=== PATIENT | female | born 1950 | race American Indian/Alaskan Native ===

== ENCOUNTER 2018-08-31 19:45 | Emergency (ER) | payer BC, MEDICARE ==
--- NOTE | 2018-08-31 20:08 | EDM.PDOC ---
ED HPI GENERAL MEDICAL PROBLEM - General Chief Complaint: Cardiovascular Problem Stated Complaint: PACEMAKER PROBLEM [id number] Time Seen by Provider: 08/31/18 20:07 Source of Information: Reports: Patient History Limitations: Reports: No Limitations - History of Present Illness INITIAL COMMENTS - FREE TEXT/NARRATIVE: c/o palpitation all day, denies CP/SOB. has pacemaker. states been having cough and congestion past week, went to clinic 3 days ago and only got cough med but no lab no x-rays, no ABX - Related Data Allergies Allergy/AdvReac Type Severity Reaction Status Date / Time amoxicillin Allergy unknown Verified 08/31/18 20:21 Home Meds: Home Meds Calc/D3/Mag/Zn/[place] Dried Salt/Matty/[place] [Calcium 600 MG Plus Vit D] 1 each PO BID [History] Fish Oil/[place]-3 Fatty Acids [Fish Oil] 500 mg PO DAILY 06/08/13 [History] Gabapentin 600 mg PO BID 06/08/13 [History] Hydrochlorothiazide/Valsartan [Diovan HCT 160-12.5 MG] 1 tab PO DAILY 06/08/13 [ History] Hydroxychloroquine [Plaquenil] 200 mg PO BID 06/08/13 [History] Metaxalone 06/08/13 [History] Multivitamin [Multi Vitamin Daily] 1 each PO DAILY 06/08/13 [History] Zolpidem [Ambien] 5 mg PO BID 06/08/13 [History] cycloSPORINE [Restasis] 06/08/13 [History] Past Medical History Cardiovascular History: Reports: High Cholesterol, Hypertension Musculoskeletal History: Reports: RA Endocrine/Metabolic History: Reports: Obesity/BMI 30+ - Past Surgical History GI Surgical History: Reports: Cholecystectomy Female Surgical History: Reports: Hysterectomy Social & Family History - Family History Family Medical History: Noncontributory - Caffeine Use Caffeine Use: Reports: Coffee - Living Situation & Occupation Living situation: Reports: , with Spouse Occupation: Retired ED ROS GENERAL - Review of Systems Review Of Systems: ROS reveals no pertinent complaints other than HPI. ED EXAM, GENERAL - Physical Exam Exam: See Below Exam Limited By: No Limitations General Appearance: Alert, WD/WN, Anxious Ears: Hearing Grossly Normal Throat/Mouth: Normal Voice, No Airway Compromise Head: Atraumatic Neck: Non-Tender, Full Range of Motion Respiratory/Chest: No Respiratory Distress Cardiovascular: Regular Rate, Rhythm GI/Abdominal: Soft, Non-Tender Neurological: Alert, Oriented, Normal Cognition, Normal Gait, No Motor/Sensory Deficits Psychiatric: Anxious Skin Exam: Warm, Dry, Normal Color Lymphatic: No Adenopathy Course - Vital Signs Last Recorded V/S: Last Vital Signs Temp 36.8 C 08/31/18 19:56 Pulse 83 08/31/18 19:56 Resp 25 H 08/31/18 19:56 BP 141/64 H 08/31/18 19:56 Pulse Ox 100 08/31/18 19:56 - Orders/Labs/Meds Orders: Active Orders 24 hr Category Date Time Status EKG 12 Lead [EKG Documentation Completion] [RC] STAT Care 08/31/18 20:06 Active Chest 1V Frontal [CR] Urgent Exams 08/31/18 20:11 Ordered Labs: Laboratory Tests 08/31/18 08/31/18 Range/Units 20:14 20:14 WBC 3.7 L (5.0-10.0) 10^3/uL RBC 4.43 (4.2-5.4) 10^6/uL Hgb 12.6 (12.0-16.0) g/dL Hct 38.4 (37.0-47.0) % MCV 86.7 (80-100) fL MCH 28.4 (27.0-34.0) pg MCHC 32.8 L (33.0-35.0) g/dL Plt Count 112 L (150-450) 10^3/uL Neut % (Auto) 74.2 (42.2-75.2) % Lymph % (Auto) 15.2 L (20.5-50.1) % [place] % (Auto) 8.9 H (2-8) % Eos % (Auto) 1.4 (1.0-3.0) % Baso % (Auto) 0.3 (0.0-1.0) % Sodium 135 (135-145) mmol/L Potassium 4.2 (3.6-5.0) mmol/L Chloride 102 (101-111) mmol/L Carbon Dioxide 24.0 (21.0-31.0) mmol/L Anion Gap 13.2 BUN 16 (7-18) mg/dL Creatinine 0.9 (0.6-1.3) mg/dL Est Cr Clr Drug Dosing 48.80 mL/min Estimated GFR (MDRD) > 60 BUN/Creatinine Ratio 17.77 Glucose 97 (74-105) mg/dL Calcium 9.1 (8.4-10.2) mg/dl Total Bilirubin 0.7 (0.2-1.0) mg/dL AST 39 (10-42) IU/L ALT 28 (10-60) IU/L Alkaline Phosphatase 67 (42-121) IU/L Troponin I 0.03 H* (0.00-0.02) ng/ml B-Natriuretic Peptide 104 H (0-100) pg/ml Total Protein 7.1 (6.7-8.2) g/dl Albumin 3.3 (3.2-5.5) g/dl Globulin 3.8 Albumin/Globulin Ratio 0.87 - Re-Assessments/Exams Free Text/Narrative Re-Assessment/Exam: 08/31/18 21:[address] Chua who kindly accepted pt. Departure - Departure Time of Disposition: 21:01 Disposition: DC/Tfer to Acute Hospital 02 Reason for Transfer *Q: Other Condition: Fair Clinical Impression: Palpitations, Non-STEMI (non-ST elevated myocardial infarction) Forms: Interfacility Transfer EMTALA - My Orders Last 24 Hours: My Active Orders 08/31/18 20:06 EKG 12 Lead [EKG Documentation Completion] [RC] STAT 08/31/18 20:11 Chest 1V Frontal [CR] Urgent - Assessment/Plan Last 24 Hours: My Active Orders 08/31/18 20:06 EKG 12 Lead [EKG Documentation Completion] [RC] STAT 08/31/18 20:11 Chest 1V Frontal [CR] Urgent
[2018-08-31 20:43] LABS: ANION GAP 13.2; CHLORIDE,CL 102 mmol/L (101-111); SODIUM,NA 135 mmol/L (135-145)
[2018-08-31] MEDS ORDERED: LORazepam 2 MG/ML Syringe IVPUSH ONE (21:42)
== END 2018-08-31 21:53 ==
LOC: DL.ED 19:45
DX: I21.4 Non-ST elevation (NSTEMI) myocardial infarction (principal); R00.2 Palpitations; E78.00 Pure hypercholesterolemia, unspecified; I10 Essential (primary) hypertension; Z95.0 Presence of cardiac pacemaker; Z88.1 Allergy status to other antibiotic agents; Z79.899 Other long term (current) drug therapy
CPT/HCPCS: 36415; 71045; 80053; 83880; 84484; 85025; 93005; 96374; 99285; J2060

== ENCOUNTER 2018-10-13 11:33 | Emergency (ER) | payer BC, MEDICARE ==
[2018-10-13] MEDS ORDERED: Ondansetron 4 MG/2 ML SDV IV ONE (12:03)
[2018-10-13] MEDS ORDERED: Meclizine 12.5 MG Tab PO ONE (12:07)
--- NOTE | 2018-10-13 12:11 | EDM.PDOC ---
ED HPI GENERAL MEDICAL PROBLEM - General Chief Complaint: Cardiovascular Problem Stated Complaint: HEART PROBLEMS Time Seen by Provider: 10/13/18 12:07 Source of Information: Reports: Patient History Limitations: Reports: No Limitations - History of Present Illness INITIAL COMMENTS - FREE TEXT/NARRATIVE: c/o weakness lightheaded dizzy nausea and vomiting today.denies CP/SOB. - Related Data Allergies Allergy/AdvReac Type Severity Reaction Status Date / Time amoxicillin Allergy unknown Verified 08/31/18 20:21 Home Meds: Home Meds Calc/D3/Mag/Zn/[employer]/Matty/[place] [Calcium 600 MG Plus Vit D] 1 each PO BID [History] Fish Oil/[place]-3 Fatty Acids [Fish Oil] 500 mg PO DAILY 06/08/13 [History] Gabapentin 600 mg PO BID 06/08/13 [History] Hydrochlorothiazide/Valsartan [Diovan HCT 160-12.5 MG] 1 tab PO DAILY 06/08/13 [ History] Hydroxychloroquine [Plaquenil] 200 mg PO BID 06/08/13 [History] Metaxalone 1 dose PO DAILY 06/08/13 [History] Multivitamin [Multi Vitamin Daily] 1 each PO DAILY 06/08/13 [History] Zolpidem [Ambien] 5 mg PO BID 06/08/13 [History] cycloSPORINE [Restasis] 1 dose TOP DAILY 06/08/13 [History] Past Medical History Cardiovascular History: Reports: High Cholesterol, Hypertension Musculoskeletal History: Reports: RA Endocrine/Metabolic History: Reports: Obesity/BMI 30+ - Past Surgical History GI Surgical History: Reports: Cholecystectomy Female Surgical History: Reports: Hysterectomy Social & Family History - Family History Family Medical History: Noncontributory - Caffeine Use Caffeine Use: Reports: Coffee - Living Situation & Occupation Living situation: Reports: , with Spouse Occupation: Retired ED ROS GENERAL - Review of Systems Review Of Systems: ROS reveals no pertinent complaints other than HPI. ED EXAM, GENERAL - Physical Exam Exam: See Below Exam Limited By: No Limitations General Appearance: Alert, WD/WN, Mild Distress, Other (discomfort) Eye Exam: Bilateral Eye: PERRL (pupils ER @ 4mm) Ears: Hearing Grossly Normal Throat/Mouth: Normal Voice, No Airway Compromise Head: Atraumatic Neck: Non-Tender, Full Range of Motion Respiratory/Chest: No Respiratory Distress Cardiovascular: Regular Rate, Rhythm GI/Abdominal: Soft, Non-Tender Neurological: Alert, Oriented, Normal Cognition, No Motor/Sensory Deficits Psychiatric: Flat Affect Skin Exam: Warm, Dry, Normal Color Lymphatic: No Adenopathy Course - Vital Signs Last Recorded V/S: Last Vital Signs Temp 35.8 C 10/13/18 11:47 Pulse 72 10/13/18 11:47 Resp 18 10/13/18 11:47 BP 156/73 H 10/13/18 11:47 Pulse Ox 97 10/13/18 11:47 Orthostatic Blood Pressure [ 159/81 Standing] Orthostatic Blood Pressure [ 161/82 Sitting] Orthostatic Blood Pressure [ 147/71 Supine] - Orders/Labs/Meds Orders: Active Orders 24 hr Category Date Time Status EKG 12 Lead [EKG Documentation Completion] [RC] STAT Care 10/13/18 11:39 Active Labs: Laboratory Tests 10/13/18 10/13/18 Range/Units 11:55 11:55 WBC 3.0 L (5.0-10.0) 10^3/uL RBC 4.58 (4.2-5.4) 10^6/uL Hgb 13.5 (12.0-16.0) g/dL Hct 40.9 (37.0-47.0) % MCV 89.3 (80-100) fL MCH 29.5 (27.0-34.0) pg MCHC 33.0 (33.0-35.0) g/dL Plt Count 108 L (150-450) 10^3/uL Neut % (Auto) 61.8 (42.2-75.2) % Lymph % (Auto) 26.5 (20.5-50.1) % [place] % (Auto) 8.7 H (2-8) % Eos % (Auto) 2.7 (1.0-3.0) % Baso % (Auto) 0.3 (0.0-1.0) % Sodium 137 (135-145) mmol/L Potassium 3.4 L (3.6-5.0) mmol/L Chloride 106 (101-111) mmol/L Carbon Dioxide 22.0 (21.0-31.0) mmol/L Anion Gap 12.4 BUN 14 (7-18) mg/dL Creatinine 0.9 (0.6-1.3) mg/dL Est Cr Clr Drug Dosing TNP Estimated GFR (MDRD) > 60 BUN/Creatinine Ratio 15.55 Glucose 102 (74-105) mg/dL Calcium 9.3 (8.4-10.2) mg/dl Total Bilirubin 0.9 (0.2-1.0) mg/dL AST 40 (10-42) IU/L ALT 28 (10-60) IU/L Alkaline Phosphatase 60 (42-121) IU/L Troponin I 0.02 (0.00-0.02) ng/ml Total Protein 7.3 (6.7-8.2) g/dl Albumin 3.6 (3.2-5.5) g/dl Globulin 3.7 Albumin/Globulin Ratio 0.97 Meds: Medications Discontinued Medications Generic Name Dose Route Start Last Admin Trade Name Freq PRN Reason Stop Dose Admin Meclizine HCl 12.5 mg 10/13/18 12:07 10/13/18 12:39 Antivert PO 10/13/18 12:08 12.5 mg ONETIME ONE Administration Ondansetron HCl 4 mg 10/13/18 12:03 10/13/18 12:39 Zofran IV 10/13/18 12:04 4 mg ONETIME ONE Administration - Re-Assessments/Exams Free Text/Narrative Re-Assessment/Exam: 10/13/18 13:09 re-exam; s/p antivert + zofran = better now 10/13/18 13:48 results discussed with pt who is feeling much better now. Departure - Departure Time of Disposition: 14:10 Disposition: Home, Self-Care 01 Condition: Good Clinical Impression: Vertigo Instructions: Vertigo, [id number] Referrals: PCP,None [Primary Care Provider] - Forms: ED Department Discharge Additional Instructions: 1) rest 2) avoid activities 3) take ANTIVERT OR MECLIZINE from [facility] 3 times daily for next 3 days 3) follow up at clinic 4) recheck if there is any change or concern rx given; zofran 4mg ODT bid prn x 6 - My Orders Last 24 Hours: My Active Orders 10/13/18 11:39 EKG 12 Lead [EKG Documentation Completion] [RC] STAT - Assessment/Plan Last 24 Hours: My Active Orders 10/13/18 11:39 EKG 12 Lead [EKG Documentation Completion] [RC] STAT
[2018-10-13 12:24] LABS: ANION GAP 12.4; CHLORIDE,CL 106 mmol/L (101-111); SODIUM,NA 137 mmol/L (135-145)
== END 2018-10-13 14:10 | disposition home or self-care (01) ==
LOC: DL.ED 11:33
DX: R42 Dizziness and giddiness (principal); E78.00 Pure hypercholesterolemia, unspecified; I10 Essential (primary) hypertension; Z88.1 Allergy status to other antibiotic agents; Z79.899 Other long term (current) drug therapy
CPT/HCPCS: 36415; 71045; 80053; 84484; 85025; 93005; 96374; 99285; A9270; J2405

== ENCOUNTER 2019-04-07 10:04 | Emergency (ER) | payer BC, OTHER ==
--- NOTE | 2019-04-07 11:20 | EDM.PDOC ---
Scribed by Yanira Cox 04/07/19 1101 for Miles Clark PA ED HPI GENERAL MEDICAL PROBLEM - General Chief Complaint: Eye Problems Stated Complaint: PINK EYE Time Seen by Provider: 04/07/19 10:40 Source of Information: Reports: Patient, RN, RN Notes Reviewed History Limitations: Reports: No Limitations - History of Present Illness INITIAL COMMENTS - FREE TEXT/NARRATIVE: Patient is a 61-year-old female patient who presents to ED with red eyes bilaterally. This started on Monday p.m. and getting worse. She started having drainage this morning. Onset Date: 04/05/19 Duration: Getting Worse Location: Reports: Other (eyes) Quality: Reports: Ache Severity: Moderate Improves with: Reports: None Worsens with: Reports: None Associated Symptoms: Reports: No Other Symptoms - Related Data Allergies Allergy/AdvReac Type Severity Reaction Status Date / Time amoxicillin Allergy unknown Verified 04/07/19 10:12 Home Meds: Home Meds Calc/D3/Mag/Zn/[place]/Matty/[place] [Calcium 600 MG Plus Vit D] 1 each PO BID [History] Fish Oil/[place]-3 Fatty Acids [Fish Oil] 500 mg PO DAILY 06/08/13 [History] Gabapentin 600 mg PO BID 06/08/13 [History] Hydrochlorothiazide/Valsartan [Diovan HCT 160-12.5 MG] 1 tab PO DAILY 06/08/13 [ History] Hydroxychloroquine [Plaquenil] 200 mg PO BID 06/08/13 [History] Metaxalone 1 dose PO DAILY 06/08/13 [History] Multivitamin [Multi Vitamin Daily] 1 each PO DAILY 06/08/13 [History] Zolpidem [Ambien] 5 mg PO BID 06/08/13 [History] cycloSPORINE [Restasis] 1 dose TOP DAILY 06/08/13 [History] Past Medical History Cardiovascular History: Reports: High Cholesterol, Hypertension Musculoskeletal History: Reports: RA Endocrine/Metabolic History: Reports: Obesity/BMI 30+ - Infectious Disease History Infectious Disease History: Reports: Chicken Pox, Measles - Past Surgical History GI Surgical History: Reports: Cholecystectomy Female Surgical History: Reports: Hysterectomy Social & Family History - Family History Family Medical History: Noncontributory - Tobacco Use Smoking Status *Q: Never Smoker Second Hand Smoke Exposure: No - Caffeine Use Caffeine Use: Reports: Coffee - Recreational Drug Use Recreational Drug Use: No - Living Situation & Occupation Living situation: Reports: , with Spouse Occupation: Retired ED ROS GENERAL - Review of Systems Review Of Systems: Comprehensive ROS is negative, except as noted in HPI. ED EXAM GENERAL W FULL EYE - Physical Exam Exam: See Below Exam Limited By: No Limitations General Appearance: Alert, WD/WN, No Apparent Distress Eye Exam: Bilateral Eye: Conjunctival Injection (and erythema with purulent drainage.) Ears: Normal External Exam, Normal Canal, Hearing Grossly Normal, Normal TMs Nose: Normal Inspection, Normal Mucosa, No Blood Throat/Mouth: Normal Inspection, Normal Lips, Normal Teeth, Normal Gums, Normal Oropharynx, Normal Voice, No Airway Compromise Head: Atraumatic, Normocephalic Neck: Normal Inspection, Supple, Non-Tender, Full Range of Motion Respiratory/Chest: No Respiratory Distress, Lungs Clear, Normal Breath Sounds, No Accessory Muscle Use, Chest Non-Tender Cardiovascular: Normal Peripheral Pulses, Regular Rate, Rhythm, No Edema, No Gallop, No JVD, No Murmur, No Rub GI/Abdominal: Normal Bowel Sounds, Soft, Non-Tender, No Organomegaly, No Distention, No Abnormal Bruit, No Mass (Female) Exam: Deferred Rectal (Female) Exam: Deferred Back Exam: Normal Inspection, Full Range of Motion, NT Extremities: Normal Inspection, Normal Range of Motion, Non-Tender, Normal Capillary Refill, No Pedal Edema Neurological: Alert, Oriented, CN II-XII Intact, Normal Cognition, Normal Gait, Normal Reflexes, No Motor/Sensory Deficits Psychiatric: Normal Affect, Normal Mood Skin Exam: Warm, Dry, Intact, Normal Color, No Rash Lymphatic: No Adenopathy Course - Vital Signs Last Recorded V/S: Last Vital Signs Temp 36.6 C 04/07/19 10:08 Pulse 73 04/07/19 10:08 Resp 18 04/07/19 10:08 BP 154/73 H 04/07/19 10:08 Pulse Ox 97 04/07/19 10:08 Departure - Departure Time of Disposition: 10:57 Disposition: Home, Self-Care 01 Condition: Fair Clinical Impression: Conjunctivitis Qualifiers: Conjunctivitis type: acute Acute conjunctivitis type: bacterial Laterality: bilateral Qualified Code(s): H10.33 - Unspecified acute conjunctivitis, bilateral - Discharge Information *PRESCRIPTION DRUG MONITORING PROGRAM REVIEWED*: Not Applicable *COPY OF PRESCRIPTION DRUG MONITORING REPORT IN PATIENT MARIXA: Not Applicable Instructions: Bacterial Conjunctivitis, Phya-ra-Qiyn Forms: ED Department Discharge Care Plan Goals: The patient and mother were advised of the examination results during the visit. The patient was discharged with a script for Ofloxacin ophthalmic 3% to apply 1 drop into each eye 4 times per day for 10 days. If the patient has any additional symptoms or further concerns, the patient should follow-up with her primary care facility or return to the emergency department. I have read and agree with the documentation that has been completed regarding this visit. By signing this record, I attest that the documentation was completed in my physical presence and is an accurate record of the encounter.
== END 2019-04-07 11:26 | disposition home or self-care (01) ==
LOC: DL.ED 10:04
DX: H10.89 Other conjunctivitis (principal); I10 Essential (primary) hypertension; M06.9 Rheumatoid arthritis, unspecified; E66.9 Obesity, unspecified; Z68.30 Body mass index [BMI] 30.0-30.9, adult; Z88.1 Allergy status to other antibiotic agents; Z79.899 Other long term (current) drug therapy
CPT/HCPCS: 99283

== ENCOUNTER 2019-06-13 19:43 | Emergency (ER) | payer BC, OTHER ==
[2019-06-13] MEDS ORDERED: Codeine/guaiFENesin 100-10 MG/5 ML Syrup 5 ML Cup PO ONE (19:44)
[2019-06-13 21:02] LABS: ANION GAP 13.2
--- NOTE | 2019-06-13 21:32 | EDM.PDOC ---
ED HPI GENERAL MEDICAL PROBLEM - General Chief Complaint: Chest Pain Stated Complaint: RAPID HEART BEAT Time Seen by Provider: 06/13/19 20:02 Source of Information: Reports: Patient, Family, RN, RN Notes Reviewed History Limitations: Reports: No Limitations - History of Present Illness INITIAL COMMENTS - FREE TEXT/NARRATIVE: Patient to ER with complaint of rapid heartbeat intermittently throughout the day. Began getting dizzy this evening with the palpitations. States she took a Zofran. Patient complains of increased shortness of breath with ambulation and rest intermittently. Patient denies chest pain. Admits to nausea earlier today but denies vomiting or diarrhea. Patient states she has had a bad cold and cough for 3 weeks, has been using Robitussin [id number] for cough. Patient states she has had fever and chills intermittently with a productive cough. Cough production as green. 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 Onset: Today Duration: Intermittent Mid-Sternal Chest Pain Score (Numeric/FACES): 6 - Related Data Allergies Allergy/AdvReac Type Severity Reaction Status Date / Time amoxicillin Allergy unknown Verified 04/07/19 10:12 Home Meds: Home Meds Calc/D3/Mag/Zn/[place]/Matty/[place] [Calcium 600 MG Plus Vit D] 1 each PO BID [History] Fish Oil/[place]-3 Fatty Acids [Fish Oil] 500 mg PO DAILY 06/08/13 [History] Gabapentin 600 mg PO BID 06/08/13 [History] Hydrochlorothiazide/Valsartan [Diovan HCT 160-12.5 MG] 1 tab PO DAILY 06/08/13 [ History] Hydroxychloroquine [Plaquenil] 200 mg PO BID 06/08/13 [History] Metaxalone 1 dose PO DAILY 06/08/13 [History] Multivitamin [Multi Vitamin Daily] 1 each PO DAILY 06/08/13 [History] Zolpidem [Ambien] 5 mg PO BID 06/08/13 [History] cycloSPORINE [Restasis] 1 dose TOP DAILY 06/08/13 [History] Past Medical History Cardiovascular History: Reports: High Cholesterol, Hypertension, Pacemaker Musculoskeletal History: Reports: RA Endocrine/Metabolic History: Reports: Obesity/BMI 30+ - Infectious Disease History Infectious Disease History: Reports: Chicken Pox, Measles - Past Surgical History GI Surgical History: Reports: Cholecystectomy Female Surgical History: Reports: Hysterectomy Social & Family History - Family History Family Medical History: Noncontributory - Tobacco Use Smoking Status *Q: Never Smoker Second Hand Smoke Exposure: No - Caffeine Use Caffeine Use: Reports: Coffee - Recreational Drug Use Recreational Drug Use: No - Living Situation & Occupation Living situation: Reports: , with Spouse Occupation: Retired ED ROS GENERAL - Review of Systems Review Of Systems: Comprehensive ROS is negative, except as noted in HPI. ED EXAM, GENERAL - Physical Exam Exam: See Below Exam Limited By: No Limitations General Appearance: Alert, WD/WN, No Apparent Distress Eye Exam: Bilateral Eye: EOMI, Normal Inspection Ears: Normal External Exam, Hearing Grossly Normal Nose: Normal Inspection Throat/Mouth: Normal Inspection, Normal Voice, No Airway Compromise Head: Atraumatic, Normocephalic Neck: Normal Inspection, Supple, Non-Tender, Full Range of Motion Respiratory/Chest: No Respiratory Distress, Decreased Breath Sounds, Crackles ( find the bases bilaterally) Cardiovascular: Normal Peripheral Pulses, Regular Rate, Rhythm, No Edema, No Gallop, No JVD, No Murmur, No Rub Peripheral Pulses: 2+: Radial (L), Radial (R) GI/Abdominal: Normal Bowel Sounds, Soft, Non-Tender (Female) Exam: Deferred Rectal (Female) Exam: Deferred Back Exam: Normal Inspection, Full Range of Motion, NT Extremities: Normal Inspection, Normal Range of Motion, Non-Tender, Normal Capillary Refill, No Pedal Edema Neurological: Alert, Oriented, CN II-XII Intact, Normal Cognition, Normal Gait, Normal Reflexes, No Motor/Sensory Deficits Psychiatric: Normal Affect, Normal Mood Skin Exam: Warm, Dry, Intact, Normal Color, No Rash Lymphatic: No Adenopathy Course - Vital Signs Last Recorded V/S: Last Vital Signs Temp 97.4 F 06/13/19 19:47 Pulse 98 06/13/19 19:47 Resp 18 06/13/19 19:47 BP 151/85 H 06/13/19 19:47 Pulse Ox 99 06/13/19 19:47 - Orders/Labs/Meds Orders: Active Orders 24 hr Category Date Time Status EKG Documentation Completion [RC] STAT Care 06/13/19 20:00 Active UA RFX ANDREI AND CULT IF INDIC [URIN] Stat Lab 06/13/19 20:27 Ordered Labs: Laboratory Tests 06/13/19 06/13/19 06/13/19 Range/Units 20:35 20:35 20:35 WBC 3.3 L (5.0-10.0) 10^3/uL RBC 3.74 L (4.2-5.4) 10^6/uL Hgb 11.3 L D (12.0-16.0) g/dL Hct 33.6 L (37.0-47.0) % MCV 89.8 (80-100) fL MCH 30.2 (27.0-34.0) pg MCHC 33.6 (33.0-35.0) g/dL Plt Count 118 L (150-450) 10^3/uL Neut % (Auto) 73.7 (42.2-75.2) % Lymph % (Auto) 15.0 L (20.5-50.1) % [place] % (Auto) 8.9 H (2-8) % Eos % (Auto) 2.4 (1.0-3.0) % Baso % (Auto) 0.0 (0.0-1.0) % PT 9.9 (9.0-12.0) SEC INR 1.0 (0.9-1.2) Sodium 138 (135-145) mmol/L Potassium 4.2 (3.6-5.0) mmol/L Chloride 106 (101-111) mmol/L Carbon Dioxide 23.0 (21.0-31.0) mmol/L Anion Gap 13.2 BUN 20 H (7-18) mg/dL Creatinine 1.0 (0.6-1.3) mg/dL Est Cr Clr Drug Dosing 45.85 mL/min Estimated GFR (MDRD) 55 BUN/Creatinine Ratio 20.00 Glucose 95 (74-105) mg/dL Calcium 8.7 (8.4-10.2) mg/dl Total Bilirubin 0.6 (0.2-1.0) mg/dL AST 38 (10-42) IU/L ALT 37 (10-60) IU/L Alkaline Phosphatase 72 (42-121) IU/L Troponin I 0.03 H* (0.00-0.02) ng/ml Total Protein 6.6 L (6.7-8.2) g/dl Albumin 3.0 L (3.2-5.5) g/dl Globulin 3.6 Albumin/Globulin Ratio 0.83 Meds: Medications Discontinued Medications Generic Name Dose Route Start Last Admin Trade Name Freq PRN Reason Stop Dose Admin Guaifenesin/Codeine Phosphate Confirm 06/13/19 21:39 Robitussin Ac Administered 06/13/19 21:40 Dose 5 ml .ROUTE .[facility] - Radiology Interpretation Free Text/Narrative:: Chest xray: FINDINGS: Tubes, catheters and devices: A pacemaker device is present and its leads are in appropriate position. Lungs: Unremarkable. No consolidation. Pleural space: Unremarkable. No pleural effusion. No pneumothorax. Heart/Mediastinum: Unremarkable. No cardiomegaly. Bones/joints: Unremarkable. IMPRESSION: No acute findings. Thank you for allowing us to participate in the care of your patient. Dictated and Authenticated by: Ehsan Martell MD 06/13/2019 9:18 PM Central Time ([place] & [place]) See rad report Departure - Departure Time of Disposition: 21:30 Disposition: Home, Self-Care 01 Reason for Transfer *Q: Other Condition: Fair Clinical Impression: Palpitations, Viral upper respiratory illness Instructions: Cough, Adult, [id number], Viral Respiratory Infection, Easy-To- Read, Upper Respiratory Infection, Adult, [id number], Palpitations, Easy-to- Read Referrals: Samuel Ignacio [Primary Care Provider] - Forms: ED Department Discharge Additional Instructions: Rest Drink plenty of fluids Follow up with Dr. Adame' office tomorrow Return to the ER with any worsening of symptoms Sepsis Event Note - Evaluation Sepsis Screening Result: No Definite Risk - Focused Exam Vital Signs: Vital Signs Temp Pulse Resp BP Pulse Ox 06/13/19 19:47 97.4 F 98 18 151/85 H 99 Date Exam was Performed: 06/14/19 Time Exam was Performed: 00:39 - My Orders Last 24 Hours: My Active Orders 06/13/19 20:00 EKG Documentation Completion [RC] STAT 06/13/19 20:27 UA RFX ANDREI AND CULT IF INDIC [URIN] Stat - Assessment/Plan Last 24 Hours: My Active Orders 06/13/19 20:00 EKG Documentation Completion [RC] STAT 06/13/19 20:27 UA RFX ANDREI AND CULT IF INDIC [URIN] Stat
[2019-06-13] MEDS ORDERED: Codeine/guaiFENesin 100-10 MG/5 ML Syrup 5 ML Cup ONE (21:39)
== END 2019-06-13 21:44 | disposition home or self-care (01) ==
LOC: DL.ED 19:43
DX: R00.2 Palpitations (principal); J39.9 Disease of upper respiratory tract, unspecified; E78.00 Pure hypercholesterolemia, unspecified; I10 Essential (primary) hypertension; E66.9 Obesity, unspecified; Z68.28 Body mass index [BMI] 28.0-28.9, adult; Z88.1 Allergy status to other antibiotic agents
CPT/HCPCS: 36415; 71045; 80053; 84484; 85025; 85610; 93005; 99285-25; A9270-GY

== ENCOUNTER 2020-02-24 17:58 | Emergency (ER) | payer BC, MEDICARE, OTHER ==
[2020-02-24 18:43] LABS: ANION GAP 11.8 mEq/L (7-13); CHLORIDE,CL 100 mmol/L (98-107); SODIUM,NA 132 mmol/L (136-145)
--- NOTE | 2020-02-24 18:55 | EDM.PDOC ---
<Miles Clark Tierra - Last Filed: 02/24/20 19:04> ED HPI GENERAL MEDICAL PROBLEM - General Chief Complaint: General Stated Complaint: RAPID HEART BEAT Time Seen by Provider: 02/24/20 18:45 Source of Information: Reports: Patient History Limitations: Reports: No Limitations - History of Present Illness INITIAL COMMENTS - FREE TEXT/NARRATIVE: This 69 yo female patient reports to the ED due to a rapid heart rate over the past week. The patient reports she had something done with her bone marrow about 1 week ago and has been feeling weak since that time. The patient reports she called Dr. Perez today and was advised to come to the ED to get checked out. The patient reports she has increased shortness of breath with any effort. Duration: Week(s):, Constant Location: Reports: Generalized Quality: Reports: Other Severity: Moderate Improves with: Reports: Rest Worsens with: Reports: Movement Context: Reports: Other Associated Symptoms: Reports: No Other Symptoms - Related Data Allergies Allergy/AdvReac Type Severity Reaction Status Date / Time amoxicillin Allergy unknown Verified 02/24/20 18:17 Home Meds: Home Meds Calc/D3/Mag/Zn/[place]/Matty/[place] [Calcium 600 MG Plus Vit D] 1 each PO BID 06/08/13 [History] Fish Oil/[place]-3 Fatty Acids [Fish Oil] 500 mg PO DAILY 06/08/13 [History] Gabapentin 600 mg PO BID 06/08/13 [History] Hydrochlorothiazide/Valsartan [Diovan HCT 160-12.5 MG] 1 tab PO DAILY 06/08/13 [History] Hydroxychloroquine [Plaquenil] 200 mg PO DAILY 06/08/13 [History] Metaxalone 1 dose PO DAILY 06/08/13 [History] Multivitamin [Multi Vitamin Daily] 1 each PO DAILY 06/08/13 [History] Zolpidem [Ambien] 5 mg PO BEDTIME 06/08/13 [History] cycloSPORINE [Restasis] 1 dose TOP DAILY 06/08/13 [History] Past Medical History HEENT History: Reports: Impaired Vision Other HEENT History: wears glasses Cardiovascular History: Reports: High Cholesterol, Hypertension, Pacemaker Respiratory History: Reports: SOB Genitourinary History: Reports: None 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 Musculoskeletal History: Reports: RA Neurological History: Reports: None Psychiatric History: Reports: None Endocrine/Metabolic History: Reports: Obesity/BMI 30+ Hematologic History: Reports: None Immunologic History: Reports: None Oncologic (Cancer) History: Reports: None - Infectious Disease History Infectious Disease History: Reports: Chicken Pox - Past Surgical History GI Surgical History: Reports: Cholecystectomy Female Surgical History: Reports: Hysterectomy Social & Family History - Family History Family Medical History: Noncontributory - Tobacco Use Tobacco Use Status *Q: Never Tobacco User Second Hand Smoke Exposure: No - Caffeine Use Caffeine Use: Reports: Tea - Recreational Drug Use Recreational Drug Use: No - Living Situation & Occupation Living situation: Reports: , with Spouse Occupation: Retired ED ROS GENERAL - Review of Systems Review Of Systems: Comprehensive ROS is negative, except as noted in HPI. ED EXAM, GENERAL - Physical Exam Exam: See Below Exam Limited By: No Limitations General Appearance: Alert, WD/WN, Mild Distress Eye Exam: Bilateral Eye: EOMI, Normal Inspection, PERRL Ears: Normal External Exam, Normal Canal, Hearing Grossly Normal, Normal TMs Nose: Normal Inspection Throat/Mouth: Normal Inspection, Normal Lips, Normal Teeth, Normal Gums, Normal Oropharynx, Normal Voice, No Airway Compromise Head: Atraumatic, Normocephalic Neck: Normal Inspection, Supple, Non-Tender, Full Range of Motion Respiratory/Chest: No Respiratory Distress, Lungs Clear, Normal Breath Sounds, No Accessory Muscle Use, Chest Non-Tender Cardiovascular: Normal Peripheral Pulses, Regular Rate, Rhythm, No Edema, No Gallop, No JVD, No Murmur, No Rub GI/Abdominal: Normal Bowel Sounds, Soft, Non-Tender, No Organomegaly, No Dist ention, No Abnormal Bruit, No Mass (Female) Exam: Deferred Rectal (Female) Exam: Normal Rectal Tone Back Exam: Normal Inspection, Full Range of Motion, NT Extremities: Normal Inspection, Normal Range of Motion, Non-Tender, Normal Capillary Refill, No Pedal Edema Neurological: Alert, Oriented, CN II-XII Intact, Normal Cognition, Normal Gait, Normal Reflexes, No Motor/Sensory Deficits Psychiatric: Normal Affect, Normal Mood Skin Exam: Warm, Dry, Intact, Normal Color, No Rash Lymphatic: No Adenopathy Departure - Departure Disposition: Home, Self-Care 01 Clinical Impression: Anemia Qualifiers: Anemia type: unspecified type Qualified Code(s): D64.9 - Anemia, unspecified UTI (urinary tract infection) Qualifiers: Urinary tract infection type: acute cystitis Hematuria presence: with hematuria Qualified Code(s): N30.01 - Acute cystitis with hematuria - Discharge Information Instructions: Antibiotic Medicine, Adult, [id number], Anemia, Urinary Tract Infection, Adult Referrals: Brian Alicea MD [Primary Care Provider] - Forms: ED Department Discharge Additional Instructions: telephone follow up with primary provider in am keflex 500mg 3 times daily change position slowly urgent follow up if chest pain, worsening shortness of breath Sepsis Event Note (ED) - Evaluation Sepsis Screening Result: No Definite Risk <Stephanie Guzmán - Last Filed: 02/25/20 04:06> Course - Vital Signs Last Recorded V/S: Last Vital Signs Temp 98.5 F 02/24/20 18:09 Pulse 94 02/24/20 18:09 Resp 16 02/24/20 18:09 BP 111/53 L 02/24/20 18:09 Pulse Ox 100 02/24/20 18:09 - Orders/Labs/Meds Orders: Active Orders 24 hr Category Date Time Status CULTURE URINE [RM] Stat Lab 02/24/20 19:46 Received Labs: Laboratory Tests 02/24/20 02/24/20 02/24/20 Range/Units 18:16 18:16 18:16 WBC 7.9 (5.0-10.0) 10^3/uL RBC 2.38 L (4.2-5.4) 10^6/uL Hgb 7.2 L D (12.0-16.0) g/dL Hct 22.0 L (37.0-47.0) % MCV 92.4 (80-100) fL MCH 30.3 (27.0-34.0) pg MCHC 32.7 L (33.0-35.0) g/dL Plt Count 162 (150-450) 10^3/uL Neut % (Auto) 79.4 H (42.2-75.2) % Lymph % (Auto) 11.4 L (20.5-50.1) % [place] % (Auto) 9.1 H (2-8) % Eos % (Auto) 0.1 L (1.0-3.0) % Baso % (Auto) 0.0 (0.0-1.0) % Sodium 132 L (136-145) mmol/L Potassium 3.8 (3.5-5.1) mmol/L Chloride 100 (98-107) mmol/L Carbon Dioxide 24 (21-32) mmol/L Anion Gap 11.8 (7-13) mEq/L BUN 26 H (7-18) mg/dL Creatinine 1.62 H (0.55-1.02) mg/dL Est Cr Clr Drug Dosing 27.90 mL/min Estimated GFR (MDRD) 31 BUN/Creatinine Ratio 16.0 (No establ ref range) Glucose 102 H (74-99) mg/dL Calcium 8.7 (8.5-10.1) mg/dL Total Bilirubin 1.5 H (0.2-1.0) mg/dL AST 43 H (15-37) U/L ALT 33 (14-59) U/L Alkaline Phosphatase 100 (46-116) U/L Troponin I < 0.017 (0.000-0.056) ng/mL Total Protein 6.4 (6.4-8.2) g/dL Albumin 2.2 L (3.4-5.0) g/dL Globulin 4.2 Albumin/Globulin Ratio 0.52 Urine Color (YELLOW) Urine Appearance (CLEAR) Urine pH (5.0-9.0) Ur Specific [place] (1.005-1.030) Urine Protein (NEGATIVE) Urine Glucose (UA) (NEGATIVE) Urine Ketones (NEGATIVE) Urine Occult Blood (NEGATIVE) Urine Nitrite (NEGATIVE) Urine Bilirubin (NEGATIVE) Urine Urobilinogen (0.2-1.0) mg/dL Ur Leukocyte Esterase (NEGATIVE) Urine RBC /HPF Urine WBC (0-5/HPF) /HPF Ur Epithelial Cells (NOT SEEN) /HPF Amorphous Sediment (NOT SEEN) /HPF Urine Bacteria (0-FEW/HPF) /HPF Urine Mucus (NOT SEEN) /LPF SARS CoV-2 RNA Rapid LILIANA (NEGATIVE) Blood Type O POSITIVE Gel Antibody Screen Negative 02/24/20 02/24/20 Range/Units 19:40 19:46 WBC (5.0-10.0) 10^3/uL RBC (4.2-5.4) 10^6/uL Hgb (12.0-16.0) g/dL Hct (37.0-47.0) % MCV (80-100) fL MCH (27.0-34.0) pg MCHC (33.0-35.0) g/dL Plt Count (150-450) 10^3/uL Neut % (Auto) (42.2-75.2) % Lymph % (Auto) (20.5-50.1) % [place] % (Auto) (2-8) % Eos % (Auto) (1.0-3.0) % Baso % (Auto) (0.0-1.0) % Sodium (136-145) mmol/L Potassium (3.5-5.1) mmol/L Chloride (98-107) mmol/L Carbon Dioxide (21-32) mmol/L Anion Gap (7-13) mEq/L BUN (7-18) mg/dL Creatinine (0.55-1.02) mg/dL Est Cr Clr Drug Dosing mL/min Estimated GFR (MDRD) BUN/Creatinine Ratio (No establ ref range) Glucose (74-99) mg/dL Calcium (8.5-10.1) mg/dL Total Bilirubin (0.2-1.0) mg/dL AST (15-37) U/L ALT (14-59) U/L Alkaline Phosphatase (46-116) U/L Troponin I (0.000-0.056) ng/mL Total Protein (6.4-8.2) g/dL Albumin (3.4-5.0) g/dL Globulin Albumin/Globulin Ratio Urine Color Dark yellow (YELLOW) Urine Appearance Slightly cloudy (CLEAR) Urine pH 5.5 (5.0-9.0) Ur Specific [place] 1.025 (1.005-1.030) Urine Protein Negative (NEGATIVE) Urine Glucose (UA) Negative (NEGATIVE) Urine Ketones Trace H (NEGATIVE) Urine Occult Blood Trace-intact H (NEGATIVE) Urine Nitrite Positive H (NEGATIVE) Urine Bilirubin Small H (NEGATIVE) Urine Urobilinogen 1.0 (0.2-1.0) mg/dL Ur Leukocyte Esterase Small H (NEGATIVE) Urine RBC 10-20 H /HPF Urine WBC >100 H (0-5/HPF) /HPF Ur Epithelial Cells Moderate H (NOT SEEN) /HPF Amorphous Sediment Moderate H (NOT SEEN) /HPF Urine Bacteria Many H (0-FEW/HPF) /HPF Urine Mucus Moderate H (NOT SEEN) /LPF SARS CoV-2 RNA Rapid LILIANA Negative (NEGATIVE) Blood Type Gel Antibody Screen Meds: Medications Discontinued Medications Generic Name Dose Route Start Last Admin Trade Name David PRN Reason Stop Dose Admin Cephalexin 500 mg 02/24/20 20:59 02/24/20 21:06 Keflex PO 02/24/20 21:00 500 mg ONETIME ONE Administration - Re-Assessments/Exams Free Text/Narrative Re-Assessment/Exam: 02/25/20 03:51 Patient reports feeling better, does not want to stay, has appointment scheduled with Primary and will call in am. Patient informed of lab results including low hemoglobin. Instructed urgent return if SOB, increased dizziness or chest pain Departure - Departure Time of Disposition: 21:02 Condition: Good - Discharge Information *PRESCRIPTION DRUG MONITORING PROGRAM REVIEWED*: No *COPY OF PRESCRIPTION DRUG MONITORING REPORT IN PATIENT MARIXA: No Sepsis Event Note (ED) - Focused Exam Vital Signs: Vital Signs Temp Pulse Resp BP Pulse Ox 02/24/20 18:09 98.5 F 94 16 111/53 L 100 - My Orders Last 24 Hours: My Active Orders 02/24/20 19:46 CULTURE URINE [RM] Stat - Assessment/Plan Last 24 Hours: My Active Orders 02/24/20 19:46 CULTURE URINE [RM] Stat
--- NOTE | 2020-02-24 20:33 | CR ---
PROCEDURE INFORMATION: Exam: XR Chest, 1 View Exam date and time: 02/24/2020 8:12 PM Age: 69 years old Clinical indication: Shortness of breath; Additional info: SOB, dizziness TECHNIQUE: Imaging protocol: XR of the chest Views: 1 view. COMPARISON: CR Chest 1V Frontal 06/13/2019 9:09 PM FINDINGS: Tubes, catheters and devices: A pacemaker device is present and its leads are in appropriate position. Lungs: Unremarkable. No consolidation. Pleural space: Unremarkable. No pleural effusion. No pneumothorax. Heart/Mediastinum: Unremarkable. No cardiomegaly. Bones/joints: Unremarkable. IMPRESSION: No acute findings.
--- NOTE | 2020-02-24 20:33 | CR ---
PROCEDURE INFORMATION: Exam: XR Abdomen, 1 View Exam date and time: 02/24/2020 8:13 PM Age: 69 years old Clinical indication: Abdominal pain; Other: Constipated TECHNIQUE: Imaging protocol: XR of the abdomen. Views: Frontal supine view of the abdomen. 1 View. COMPARISON: No relevant prior studies available. FINDINGS: Pleural space: There are no pleural effusions present. Gastrointestinal tract: No over distention of bowel loops is seen. No evidence of constipation is demonstrated. Bones/joints: The facet joints demonstrate moderate degenerative hypertrophy and sclerosis. IMPRESSION: No acute abnormality.
[2020-02-24] MEDS ORDERED: Cephalexin 500 MG Cap PO ONE (20:59)
== END 2020-02-24 21:09 | disposition home or self-care (01) ==
LOC: DL.ED 17:58
DX: D64.9 Anemia, unspecified (principal); N30.01 Acute cystitis with hematuria; I10 Essential (primary) hypertension; E66.9 Obesity, unspecified; Z90.710 Acquired absence of both cervix and uterus; Z88.1 Allergy status to other antibiotic agents; Z90.49 Acquired absence of other specified parts of digestive tract; Z20.828 Contact with and (suspected) exposure to other viral communicable diseases; Z79.899 Other long term (current) drug therapy; Z68.29 Body mass index [BMI] 29.0-29.9, adult
CPT/HCPCS: 36415; 71045; 74018; 80053; 81001; 82272; 84484; 85025; 86850; 86900; 86901; 87086; 87088; 87186; 93005; 99285-25; A9270-GY; U0002

== ENCOUNTER 2020-03-01 07:28 | Emergency (ER) | payer OTHER ==
[2020-03-01] MEDS ORDERED: Sodium Chloride 0.9% 10 ML Syringe FLUSH PRN (07:47)
--- NOTE | 2020-03-01 08:22 | EDM.PDOC ---
ED HPI GENERAL MEDICAL PROBLEM - General Chief Complaint: General Stated Complaint: AMBULANCE Time Seen by Provider: 03/01/20 08:15 Source of Information: Reports: Patient History Limitations: Reports: No Limitations - History of Present Illness INITIAL COMMENTS - FREE TEXT/NARRATIVE: Patient is here for feeling weak with back pain, fevers and chills. She had a bone marrow biopsy about 1-2 weeks ago and feels like all this started then. She was seen in the ER on monday, 02/23 for a UTI. She was given antibiotics, but still notes fevers and weakness. She has some shortness of breath, but that is chronic for her. She denies any chest pain. She does have nausea, but no dyspepsia. She has quite a bit of back pain from the biopsy and laying in bed for a long time. Onset: Gradual Back Pain Score (Numeric/FACES): 7 - Related Data Allergies Allergy/AdvReac Type Severity Reaction Status Date / Time amoxicillin Allergy unknown Verified 03/01/20 08:10 Home Meds: Home Meds Calc/D3/Mag/Zn/[place]/Matty/[place] [Calcium 600 MG Plus Vit D] 1 each PO BID 06/08/13 [History] Fish Oil/[place]-3 Fatty Acids [Fish Oil] 500 mg PO DAILY 06/08/13 [History] Gabapentin 600 mg PO BID 06/08/13 [History] Hydrochlorothiazide/Valsartan [Diovan HCT 160-12.5 MG] 1 tab PO DAILY 06/08/13 [History] Hydroxychloroquine [Plaquenil] 200 mg PO DAILY 06/08/13 [History] Metaxalone 1 dose PO DAILY 06/08/13 [History] Multivitamin [Multi Vitamin Daily] 1 each PO DAILY 06/08/13 [History] Zolpidem [Ambien] 5 mg PO BEDTIME 06/08/13 [History] cycloSPORINE [Restasis] 1 dose TOP DAILY 06/08/13 [History] Past Medical History HEENT History: Reports: Impaired Vision Other HEENT History: wears glasses Cardiovascular History: Reports: High Cholesterol, Hypertension, Pacemaker Respiratory History: Reports: SOB Genitourinary History: Reports: None PATIENT CARE History: Reports: None Musculoskeletal History: Reports: RA Neurological History: Reports: None Psychiatric History: Reports: None Endocrine/Metabolic History: Reports: Obesity/BMI 30+ Hematologic History: Reports: None Immunologic History: Reports: None Oncologic (Cancer) History: Reports: None - Infectious Disease History Infectious Disease History: Reports: Chicken Pox - Past Surgical History GI Surgical History: Reports: Cholecystectomy Female Surgical History: Reports: Hysterectomy Social & Family History - Family History Family Medical History: Noncontributory - Tobacco Use Tobacco Use Status *Q: Never Tobacco User - Caffeine Use Caffeine Use: Reports: Tea - Recreational Drug Use Recreational Drug Use: No - Living Situation & Occupation Living situation: Reports: , with Spouse Occupation: Retired ED ROS GENERAL - Review of Systems Review Of Systems: Comprehensive ROS is negative, except as noted in HPI. ED EXAM, GENERAL - Physical Exam Exam: See Below Exam Limited By: No Limitations General Appearance: Alert, WD/WN, No Apparent Distress Eye Exam: Bilateral Eye: Normal Inspection Ears: Normal External Exam Head: Atraumatic, Normocephalic Neck: Normal Inspection, Supple Respiratory/Chest: No Respiratory Distress, Lungs Clear, Normal Breath Sounds, No Accessory Muscle Use, Chest Non-Tender Cardiovascular: Regular Rate, Rhythm, No Murmur GI/Abdominal: Soft, Non-Tender, No Distention Back Exam: Normal Inspection, Muscle Spasm (lower lumbar bilaterally) Extremities: Normal Inspection, Normal Range of Motion Neurological: Alert, Oriented, Normal Cognition Psychiatric: Normal Affect, Normal Mood Skin Exam: Warm, Dry, Intact, No Rash Lymphatic: No Adenopathy #1 Interpretation EKG Date: 03/01/20 EKG Interpretation Comments: paced every beat Course - Vital Signs Last Recorded V/S: Last Vital Signs Temp 99.5 F 03/01/20 08:03 Pulse 97 03/01/20 08:03 Resp 20 03/01/20 08:03 BP 126/54 L 03/01/20 08:03 Pulse Ox 100 03/01/20 08:03 Orthostatic Blood Pressure [ 127/57 Standing] Orthostatic Blood Pressure [ 145/55 Sitting] Orthostatic Blood Pressure [ 117/52 Supine] - Orders/Labs/Meds Orders: Active Orders 24 hr Category Date Time Status EKG Documentation Completion [RC] STAT Care 03/01/20 07:48 Active Peripheral IV Care [RC] . DIRECTED Care 03/01/20 07:49 Active CULTURE BLOOD [BC] Stat Lab 03/01/20 07:48 Received CULTURE BLOOD [BC] Stat Lab 03/01/20 07:53 Received Sodium Chloride 0.9% [Saline Flush] Med 03/01/20 07:47 Active 10 ml FLUSH ASDIRECTED PRN Blood Culture x2 Reflex Set [OM.PC] Stat Oth 03/01/20 07:48 Ordered Peripheral IV Insertion Adult [OM.PC] Stat Oth 03/01/20 07:48 Ordered Medication Orders Sodium Chloride (Saline Flush) 10 ml FLUSH ASDIRECTED PRN PRN Reason: Keep Vein Open Last Admin: 03/01/20 08:16 Dose: 10 ml Documented by: EBENEZER Labs: Laboratory Tests 03/01/20 03/01/20 03/01/20 Range/Units 07:48 07:48 07:48 WBC 6.5 (5.0-10.0) 10^3/uL RBC 2.48 L (4.2-5.4) 10^6/uL Hgb 7.5 L (12.0-16.0) g/dL Hct 22.9 L (37.0-47.0) % MCV 92.3 (80-100) fL MCH 30.2 (27.0-34.0) pg MCHC 32.8 L (33.0-35.0) g/dL Plt Count 196 (150-450) 10^3/uL Neut % (Auto) 80.7 H (42.2-75.2) % Lymph % (Auto) 11.5 L (20.5-50.1) % [place] % (Auto) 7.6 (2-8) % Eos % (Auto) 0.2 L (1.0-3.0) % Baso % (Auto) 0.0 (0.0-1.0) % Sodium 126 L (136-145) mmol/L Potassium 4.2 (3.5-5.1) mmol/L Chloride 95 L (98-107) mmol/L Carbon Dioxide 25 (21-32) mmol/L Anion Gap 10.2 (7-13) mEq/L BUN 19 H (7-18) mg/dL Creatinine 1.23 H (0.55-1.02) mg/dL Est Cr Clr Drug Dosing 36.75 mL/min Estimated GFR (MDRD) 43 BUN/Creatinine Ratio 15.4 (No establ ref range) Glucose 97 (74-99) mg/dL Lactic Acid 1.3 (0.4-2.0) mmol/L Calcium 8.9 (8.5-10.1) mg/dL Total Bilirubin 1.4 H (0.2-1.0) mg/dL AST 87 H (15-37) U/L ALT 47 (14-59) U/L Alkaline Phosphatase 109 (46-116) U/L Troponin I 0.032 (0.000-0.056) ng/mL Total Protein 6.4 (6.4-8.2) g/dL Albumin 2.1 L (3.4-5.0) g/dL Globulin 4.3 Albumin/Globulin Ratio 0.49 Urine Color (YELLOW) Urine Appearance (CLEAR) Urine pH (5.0-9.0) Ur Specific [place] (1.005-1.030) Urine Protein (NEGATIVE) Urine Glucose (UA) (NEGATIVE) Urine Ketones (NEGATIVE) Urine Occult Blood (NEGATIVE) Urine Nitrite (NEGATIVE) Urine Bilirubin (NEGATIVE) Urine Urobilinogen (0.2-1.0) mg/dL Ur Leukocyte Esterase (NEGATIVE) SARS CoV-2 RNA Rapid LILIANA (NEGATIVE) 03/01/20 03/01/20 Range/Units 07:50 08:37 WBC (5.0-10.0) 10^3/uL RBC (4.2-5.4) 10^6/uL Hgb (12.0-16.0) g/dL Hct (37.0-47.0) % MCV (80-100) fL MCH (27.0-34.0) pg MCHC (33.0-35.0) g/dL Plt Count (150-450) 10^3/uL Neut % (Auto) (42.2-75.2) % Lymph % (Auto) (20.5-50.1) % [place] % (Auto) (2-8) % Eos % (Auto) (1.0-3.0) % Baso % (Auto) (0.0-1.0) % Sodium (136-145) mmol/L Potassium (3.5-5.1) mmol/L Chloride (98-107) mmol/L Carbon Dioxide (21-32) mmol/L Anion Gap (7-13) mEq/L BUN (7-18) mg/dL Creatinine (0.55-1.02) mg/dL Est Cr Clr Drug Dosing mL/min Estimated GFR (MDRD) BUN/Creatinine Ratio (No establ ref range) Glucose (74-99) mg/dL Lactic Acid (0.4-2.0) mmol/L Calcium (8.5-10.1) mg/dL Total Bilirubin (0.2-1.0) mg/dL AST (15-37) U/L ALT (14-59) U/L Alkaline Phosphatase (46-116) U/L Troponin I (0.000-0.056) ng/mL Total Protein (6.4-8.2) g/dL Albumin (3.4-5.0) g/dL Globulin Albumin/Globulin Ratio Urine Color Yellow (YELLOW) Urine Appearance Slightly cloudy (CLEAR) Urine pH 6.0 (5.0-9.0) Ur Specific [place] 1.020 (1.005-1.030) Urine Protein Negative (NEGATIVE) Urine Glucose (UA) Negative (NEGATIVE) Urine Ketones Negative (NEGATIVE) Urine Occult Blood Negative (NEGATIVE) Urine Nitrite Negative (NEGATIVE) Urine Bilirubin Negative (NEGATIVE) Urine Urobilinogen 0.2 (0.2-1.0) mg/dL Ur Leukocyte Esterase Negative (NEGATIVE) SARS CoV-2 RNA Rapid LILIANA Negative (NEGATIVE) Meds: Medications Generic Name Dose Route Start Last Admin Trade Name Freq PRN Reason Stop Dose Admin Sodium Chloride 10 ml 03/01/20 07:47 03/01/20 08:16 Saline Flush FLUSH 10 ml ASDIRECTED PRN Administration Keep Vein Open - Re-Assessments/Exams Free Text/Narrative Re-Assessment/Exam: Reviewed labs with patient. 03/01/20 09:24 Departure - Departure Time of Disposition: 09:25 Disposition: Home, Self-Care 01 Condition: Good Clinical Impression: Back pain due to injury Anemia Qualifiers: Anemia type: unspecified type Qualified Code(s): D64.9 - Anemia, unspecified - Discharge Information *PRESCRIPTION DRUG MONITORING PROGRAM REVIEWED*: Not Applicable *COPY OF PRESCRIPTION DRUG MONITORING REPORT IN PATIENT MARIXA: Not Applicable Instructions: Acute Back Pain, Adult Forms: ED Department Discharge Additional Instructions: Call your hematology doctor tomorrow Rest, but get up to chair several times for low back pain Over the counter medications for pain relief complete the course of antibiotics prescribed last visit Follow up with PCP in 3-5 days Sepsis Event Note (ED) - Evaluation Sepsis Screening Result: No Definite Risk - Focused Exam Vital Signs: Vital Signs Temp Pulse Resp BP Pulse Ox 03/01/20 08:03 99.5 F 97 20 126/54 L 100 - My Orders Last 24 Hours: My Active Orders 03/01/20 07:47 Sodium Chloride 0.9% [Saline Flush] 10 ml FLUSH ASDIRECTED PRN 03/01/20 07:48 EKG Documentation Completion [RC] STAT CULTURE BLOOD [BC] Stat Blood Culture x2 Reflex Set [OM.PC] Stat Peripheral IV Insertion Adult [OM.PC] Stat 03/01/20 07:49 Peripheral IV Care [RC] . DIRECTED 03/01/20 07:53 CULTURE BLOOD [BC] Stat - Assessment/Plan Last 24 Hours: My Active Orders 03/01/20 07:47 Sodium Chloride 0.9% [Saline Flush] 10 ml FLUSH ASDIRECTED PRN 03/01/20 07:48 EKG Documentation Completion [RC] STAT CULTURE BLOOD [BC] Stat Blood Culture x2 Reflex Set [OM.PC] Stat Peripheral IV Insertion Adult [OM.PC] Stat 03/01/20 07:49 Peripheral IV Care [RC] . DIRECTED 03/01/20 07:53 CULTURE BLOOD [BC] Stat
[2020-03-01 08:28] LABS: ANION GAP 10.2 mEq/L (7-13)
== END 2020-03-01 09:51 | disposition home or self-care (01) ==
LOC: DL.ED 07:28
DX: M54.5 Low back pain (principal); D64.9 Anemia, unspecified; I10 Essential (primary) hypertension; E66.9 Obesity, unspecified; Z20.828 Contact with and (suspected) exposure to other viral communicable diseases; Z88.1 Allergy status to other antibiotic agents; Z79.899 Other long term (current) drug therapy
CPT/HCPCS: 36415; 80053; 81003; 83605; 84484; 85025; 87040; 93005; 99283; 99284-25; U0002

== ENCOUNTER 2020-03-02 12:23 | Emergency (ER) | payer OTHER ==
[2020-03-02 13:09] LABS: ANION GAP 12.3 mEq/L (7-13)
--- NOTE | 2020-03-02 14:44 | EDM.PDOC ---
ED HPI GENERAL MEDICAL PROBLEM - General Chief Complaint: General Stated Complaint: Low Back Pain Time Seen by Provider: 03/02/20 12:35 Source of Information: Reports: Patient, Family, Provider, RN History Limitations: Reports: No Limitations - History of Present Illness INITIAL COMMENTS - FREE TEXT/NARRATIVE: Patient presents to the ED via personal vehicle with complaints of ongoing low back pain and weakness. Per the patient, she was seen in this ED yesterday with similar complaints. She has a history of pancytopenia for which she underwent a bone marrow biopsy at [facility] about two weeks ago. She states she was also treated for a UTI in the past two weeks. She feels as if her weakness and low back pain are slightly improving, but she spoke with her oncologist (Dr. Miranda) who suggested she return to the ED for "...blood work and an MRI." She denies chest pain, shortness of breath, palpitations, nausea, vomiting, dysuria, hematuria, melena, or hematochezia. She does attest to some mild dyspepsia and loose stools over the past three days. She denies any trauma to her lower back, other than the bone marrow biopsy. Lower Back Pain Score (Numeric/FACES): 5 - Related Data Allergies Allergy/AdvReac Type Severity Reaction Status Date / Time amoxicillin Allergy unknown Verified 03/02/20 12:35 Home Meds: Home Meds Calc/D3/Mag/Zn/[place]/Matty/[place] [Calcium 600 MG Plus Vit D] 1 each PO BID 06/08/13 [History] Fish Oil/[place]-3 Fatty Acids [Fish Oil] 500 mg PO DAILY 06/08/13 [History] Gabapentin 600 mg PO BID 06/08/13 [History] Hydrochlorothiazide/Valsartan [Diovan HCT 160-12.5 MG] 1 tab PO DAILY 06/08/13 [History] Hydroxychloroquine [Plaquenil] 200 mg PO DAILY 06/08/13 [History] Metaxalone 1 dose PO DAILY 06/08/13 [History] Multivitamin [Multi Vitamin Daily] 1 each PO DAILY 06/08/13 [History] Zolpidem [Ambien] 5 mg PO BEDTIME 06/08/13 [History] cycloSPORINE [Restasis] 1 dose TOP DAILY 06/08/13 [History] Past Medical History HEENT History: Reports: Impaired Vision Other HEENT History: wears glasses Cardiovascular History: Reports: High Cholesterol, Hypertension, Pacemaker Respiratory History: Reports: SOB Genitourinary History: Reports: None 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 Musculoskeletal History: Reports: RA Neurological History: Reports: None Psychiatric History: Reports: None Endocrine/Metabolic History: Reports: Obesity/BMI 30+ Hematologic History: Reports: None Immunologic History: Reports: None Oncologic (Cancer) History: Reports: None Dermatologic History: Reports: None - Infectious Disease History Infectious Disease History: Reports: Chicken Pox - Past Surgical History GI Surgical History: Reports: Cholecystectomy Female Surgical History: Reports: Hysterectomy Social & Family History - Family History Family Medical History: Noncontributory - Tobacco Use Tobacco Use Status *Q: Never Tobacco User Second Hand Smoke Exposure: No - Caffeine Use Caffeine Use: Reports: Tea - Recreational Drug Use Recreational Drug Use: No - Living Situation & Occupation Living situation: Reports: , with Spouse Occupation: Retired ED ROS GENERAL - Review of Systems Review Of Systems: Comprehensive ROS is negative, except as noted in HPI. ED EXAM, GENERAL - Physical Exam Exam: See Below Exam Limited By: No Limitations General Appearance: Alert, WD/WN, No Apparent Distress Respiratory/Chest: No Respiratory Distress, Lungs Clear, Normal Breath Sounds, No Accessory Muscle Use, Chest Non-Tender Cardiovascular: Normal Peripheral Pulses, Regular Rate, Rhythm, No Edema, No Gallop, No Murmur, No Rub, Other (Pacer noted) Peripheral Pulses: 2+: Radial (L), Radial (R) GI/Abdominal: Soft, Non-Tender, No Distention, No Mass, Abnormal Bowel Sounds (Hypoactive bowel sounds) Rectal (Female) Exam: Rectal Fissure, Other (Significant ecchomosis surrounding gluteal cleft). No: Hemorrhoids, Mass Back Exam: Decreased Range of Motion, Other (Tenderness to lower back). No: Paraspinal Tenderness, Vertebral Tenderness Extremities: Normal Range of Motion, Non-Tender, No Pedal Edema, Normal Capillary Refill. No: Pedal Edema, Leg Pain Neurological: Alert, Oriented, CN II-XII Intact Skin Exam: Warm, Dry, Intact, Ecchymosis (Large area surrounding gluteal cleft) Course - Vital Signs Last Recorded V/S: Last Vital Signs Temp 99.7 F 03/02/20 12:27 Pulse 90 10/26/20 12:27 Resp 16 03/02/20 12:27 BP 126/74 03/02/20 12:27 Pulse Ox 100 03/02/20 12:27 - Orders/Labs/Meds Orders: Active Orders 24 hr Category Date Time Status UA W/ANDREI RFLX IF INDICATED [URIN] Stat Lab 03/02/20 14:27 Ordered Labs: Laboratory Tests 03/02/20 03/02/20 03/02/20 Range/Units 12:35 12:35 12:35 WBC 7.1 (5.0-10.0) 10^3/uL RBC 2.67 L (4.2-5.4) 10^6/uL Hgb 8.0 L (12.0-16.0) g/dL Hct 24.6 L (37.0-47.0) % MCV 92.1 (80-100) fL MCH 30.0 (27.0-34.0) pg MCHC 32.5 L (33.0-35.0) g/dL Plt Count 220 (150-450) 10^3/uL Neut % (Auto) 82.9 H (42.2-75.2) % Lymph % (Auto) 11.0 L (20.5-50.1) % [place] % (Auto) 6.0 (2-8) % Eos % (Auto) 0.0 L (1.0-3.0) % Baso % (Auto) 0.1 (0.0-1.0) % Sodium 127 L (136-145) mmol/L Potassium 4.3 (3.5-5.1) mmol/L Chloride 95 L (98-107) mmol/L Carbon Dioxide 24 (21-32) mmol/L Anion Gap 12.3 (7-13) mEq/L BUN 19 H (7-18) mg/dL Creatinine 1.25 H (0.55-1.02) mg/dL Est Cr Clr Drug Dosing 36.16 mL/min Estimated GFR (MDRD) 42 BUN/Creatinine Ratio 15.2 (No establ ref range) Glucose 94 (74-99) mg/dL Lactic Acid 1.3 (0.4-2.0) mmol/L Calcium 8.8 (8.5-10.1) mg/dL Total Bilirubin 2.1 H (0.2-1.0) mg/dL AST 71 H (15-37) U/L ALT 42 (14-59) U/L Alkaline Phosphatase 103 (46-116) U/L C-Reactive Protein 18.4 H (0.0-0.9) mg/dL Total Protein 7.1 (6.4-8.2) g/dL Albumin 2.3 L (3.4-5.0) g/dL Globulin 4.8 Albumin/Globulin Ratio 0.48 - Re-Assessments/Exams Free Text/Narrative Re-Assessment/Exam: 03/02/20 14:10 Palm Gatherer spoke with Dr. Miranda from [facility] to discuss finding of today's blood work, including improving Hgb and Plt of 8.0 and 220, respectively. Discussed assessment, including significant ecchymosis surrounding gluteal cleft. Will obtain CT pelvis to r/o hematoma due to multiple approaches required during bone marrow biopsy. 03/02/20 16:00 Radiologist concerned for pelvic mass vs hematoma. Will obtain US of pelvis in consultation with Dr. White. 03/02/20 16:42 US of pelvis confirmed hematoma, as opposed to pelvic mass. Departure - Departure Time of Disposition: 16:44 Disposition: Home, Self-Care 01 Condition: Good Clinical Impression: Pelvic hematoma in female Low back pain Qualifiers: Chronicity: acute Back pain laterality: bilateral Sciatica presence: without sciatica Qualified Code(s): M54.5 - Low back pain Anemia Qualifiers: Anemia type: unspecified type Qualified Code(s): D64.9 - Anemia, unspecified - Discharge Information *PRESCRIPTION DRUG MONITORING PROGRAM REVIEWED*: Not Applicable *COPY OF PRESCRIPTION DRUG MONITORING REPORT IN PATIENT MARIXA: Not Applicable Forms: ED Department Discharge Additional Instructions: Rx: Ultram Hemoglobin improved today, compared to 02/23 and 03/01 - currently 8.0. Follow up with Dr. Keith at [facility], as previously scheduled. Sepsis Event Note (ED) - Evaluation Sepsis Screening Result: No Definite Risk - Focused Exam Vital Signs: Vital Signs Temp Pulse Resp BP Pulse Ox 03/02/20 12:27 99.7 F 90 16 126/74 100 - My Orders Last 24 Hours: My Active Orders 03/02/20 14:27 UA W/ANDREI RFLX IF INDICATED [URIN] Stat - Assessment/Plan Last 24 Hours: My Active Orders 03/02/20 14:27 UA W/ANDREI RFLX IF INDICATED [URIN] Stat
--- NOTE | 2020-03-02 15:35 | CT ---
EXAMINATION: Pelvis wo Cont SEX: Female AGE: 69 years CLINICAL HISTORY: A 69-year-old female presents emergency department with ECCHYMOSIS to gluteal cleft on the left. Significant history bone marrow biopsies (several cores from the iliac crest on the left) 2 weeks ago and a "drop" in hemoglobin from 10 down to 7.2 (now 8). Rule out hematoma this afebrile patient who has had "hysterectomy but retains both ovaries". Scan technique: Volume acquisition of data unenhanced CT scan of the pelvis, both flanks and lower extremities (proximally) with patient lying supine on the Siemens multislice scanner [place], [place]. All data archived in the PACS system for storage, reformatting axial/sagittal/coronal planes and study. Interpretation: Abnormal. 1. Atheromatous calcifications normal caliber distal abdominal aorta and iliac arteries. 2. Chronic lower lumbar disc disease and hypertrophic spondylosis. No foreign bodies. 3. Homogeneous normal bone density. Symmetric normal SI and hip joints. No pathologic skeletal lesion or iatrogenic bone defects identified bony pelvis, specifically on the left. No pelvic fractures. 4. *Large 9.4 cm diameter x 11 cm W x 10.4 cm AP diameter low-attenuation (near water density) symmetric, midline, posterior PELVIC "MASS" that appears separate from the sigmoid colon. Primary differential considerations include hematoma and ovarian lesion. Note: This "mass" abuts the bony pelvis, posteriorly. 5. Focal skin thickening and subcutaneous ecchymosis along the gluteal cleft, left of midline. No subcutaneous abscess or hematoma. 6. Uterus surgically absent. No usual adnexal mass lesion or ovary seen. No free fluid in the cul-de-sac. CONCLUSION: Low-attenuation, inhomogeneously dense, symmetric, posterior pelvic mass lesion. Possible hematoma. Ovarian lesion differential consideration. Ultrasound recommended.
--- NOTE | 2020-03-02 16:39 | US ---
EXAMINATION: Pelvis Non OB sonogram SEX: Female AGE: 69 years CLINICAL HISTORY: 69-year-old afebrile female with pancytopenia, recent pelvic bone marrow biopsy, post procedural drop in hemoglobin, and posterior pelvic "mass" on CT exam. Hysterectomy. Interpretation: Abnormal. Smoothly marginated 11.9 x 7.58 x 11.3 cm diameter posterior pelvic mass with internal echoes (compared to urinary bladder, anteriorly) confirmed. No associated septations or calcifications. No bowel peristalsis. Probable pelvic hematoma.
== END 2020-03-02 17:05 | disposition home or self-care (01) ==
LOC: DL.ED 12:23
DX: S30.0XXA Contusion of lower back and pelvis, initial encounter (principal); D64.9 Anemia, unspecified; I10 Essential (primary) hypertension; E78.00 Pure hypercholesterolemia, unspecified; E66.9 Obesity, unspecified; R10.13 Epigastric pain; R19.7 Diarrhea, unspecified; Z88.1 Allergy status to other antibiotic agents; Z68.29 Body mass index [BMI] 29.0-29.9, adult; Z90.49 Acquired absence of other specified parts of digestive tract; Z90.710 Acquired absence of both cervix and uterus; Z79.899 Other long term (current) drug therapy; X58.XXXA Exposure to other specified factors, initial encounter
CPT/HCPCS: 36415; 72192; 76856; 80053; 83605; 85025; 86140; 99283; 99285-25

== ENCOUNTER 2020-06-05 15:42 | Observation (INO) | payer MEDICARE, OTHER ==
--- NOTE | 2020-06-05 14:08 | EDM.PDOC ---
ED HPI GENERAL MEDICAL PROBLEM - General Stated Complaint: AMBULANCE Time Seen by Provider: 06/05/20 14:07 Source of Information: Reports: Patient, EMS, RN, RN Notes Reviewed History Limitations: Reports: No Limitations - History of Present Illness INITIAL COMMENTS - FREE TEXT/NARRATIVE: Patient presents to the ED via EMS with complaints of fever, headache, chills, and burning upon urination. She notes these symptoms began four days ago on 06/01/20 and have progressively worsened in that time. Additionally, she notes frequency and inability to completely void. She states she has increased her water intake and added lemon to her water, but her symptoms have not improved. She notes her Tmax was 104 yesterday, for which she took ibuprofen 600mg x1. She denies chest pain, palpitations, shortness of breath, cough, sore throat, dyspepsia, nausea, vomiting, melena, or hematochezia. She does attest to a history of pancytopenia for which she follows with Dr. Miranda at [facility]. She denies a history of past COVID infection and states she received her first dose of the Moderna vaccination on 05/20/20. Forehead Pain Score (Numeric/FACES): 5 - Related Data Allergies Allergy/AdvReac Type Severity Reaction Status Date / Time amoxicillin Allergy unknown Verified 06/05/20 14:01 Home Meds: Home Meds Calc/D3/Mag/Zn/[place]/Matty/[place] [Calcium 600 MG Plus Vit D] 1 each PO BID 06/08/13 [History] Fish Oil/[place]-3 Fatty Acids [Fish Oil] 1,000 mg PO DAILY 06/08/13 [History] Gabapentin 150 mg PO BID 06/08/13 [History] Multivitamin [Multi Vitamin Daily] 1 each PO DAILY 06/08/13 [History] Zolpidem [Ambien] 5 mg PO BEDTIME 06/08/13 [History] Aspirin 81 mg PO DAILY 03/06/20 [History] Capsaicin 42.5 gm TP QID PRN 03/06/20 [History] Hypromellose [Pure & Gentle Eye Drops] 1 drop EYEBOTH ASDIRECTED PRN 03/06/20 [History] Lifitegrast [Xiidra] 1 drop EYEBOTH BID 03/06/20 [History] Losartan [Cozaar] 25 mg PO DAILY 03/06/20 [History] Melatonin 3 mg PO BEDTIME 03/06/20 [History] Metaxalone [Metaxall] 800 mg PO ASDIRECTED PRN 03/06/20 [History] Naproxen 500 mg PO Q12H 03/06/20 [History] Ondansetron [Zofran ODT] 4 mg PO Q4H PRN 03/06/20 [History] atorvaSTATin [Lipitor] 40 mg PO DAILY 03/06/20 [History] hydroCHLOROthiazide [Hydrochlorothiazide] 12.5 mg PO DAILY 03/06/20 [History] Past Medical History HEENT History: Reports: Impaired Vision Other HEENT History: wears glasses, DID NOT BRING WITH TODAY (03/06/20) Cardiovascular History: Reports: Cardiomyopathy, High Cholesterol, Hypertension, Pacemaker Respiratory History: Reports: SOB Gastrointestinal History: Reports: Chronic Constipation, Irritable Bowel Syndrome Genitourinary History: Reports: UTI, Recurrent 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: Musculoskeletal History: Reports: RA Neurological History: Reports: None Psychiatric History: Reports: None Endocrine/Metabolic History: Reports: None, Obesity/BMI 30+ Hematologic History: Reports: Anemia, Other (See Below) Other Hematologic History: Neutropenia, thrombocytopenia Immunologic History: Reports: Immunosuppression Oncologic (Cancer) History: Reports: None Dermatologic History: Reports: None - Infectious Disease History Infectious Disease History: Reports: Chicken Pox - Past Surgical History HEENT Surgical History: Reports: None Cardiovascular Surgical History: Reports: None Respiratory Surgical History: Reports: None GI Surgical History: Reports: Cholecystectomy Female Surgical History: Reports: Hysterectomy, Nephrectomy Musculoskeletal Surgical History: Reports: None Oncologic Surgical History: Reports: Other (See Below) Other Oncologic Surgeries/Procedures: bone marrow biopsy Dermatological Surgical History: Reports: None Social & Family History - Family History Family Medical History: No Pertinent Family History - Caffeine Use Caffeine Use: Reports: None - Living Situation & Occupation Living situation: Reports: , with Spouse Occupation: Retired ED ROS GENERAL - Review of Systems Review Of Systems: Comprehensive ROS is negative, except as noted in HPI. ED EXAM, RENAL/ - Physical Exam Exam: See Below Exam Limited By: No Limitations General Appearance: Alert, No Apparent Distress Eye Exam: Bilateral Eye: EOMI, Normal Inspection, PERRL (4mm) Nose: Normal Inspection. No: Nasal Tenderness, Nasal Swelling, Nasal Drainage Throat/Mouth: Normal Voice, No Airway Compromise. No: Normal Oropharynx (Dry mucous membranes) Head: Atraumatic, Normocephalic Respiratory/Chest: No Respiratory Distress, Lungs Clear, Normal Breath Sounds, No Accessory Muscle Use, Chest Non-Tender Cardiovascular: Normal Peripheral Pulses, Regular Rate, Rhythm, No Edema, No Gallop, No JVD, No Murmur, No Rub GI/Abdominal: Normal Bowel Sounds, Soft, Non-Tender, No Distention, No Mass, Pelvis Stable (Female) Exam: No: Deferred Rectal (Female) Exam: No: Deferred Back Exam: Normal Inspection, Full Range of Motion. No: CVA Tenderness (L), CVA Tenderness (R) Extremities: Normal Inspection, Normal Range of Motion, Non-Tender, No Pedal Edema, Normal Capillary Refill Neurological: Alert, Oriented, CN II-XII Intact, Normal Cognition, No Motor/Sensory Deficits Skin Exam: Warm, Dry, Intact, Normal Color, No Rash. No: Ecchymosis, Erythema, Jaundice, Mottled, Pallor, Petechiae Course - Vital Signs Last Recorded V/S: Last Vital Signs Temp 102.6 F H 06/05/20 14:07 Pulse 97 06/05/20 14:07 Resp 96 H 06/05/20 14:07 BP 125/50 L 06/05/20 14:07 Pulse Ox 96 06/05/20 14:07 - Orders/Labs/Meds Orders: Active Orders 24 hr Category Date Time Status Admission Diagnosis [ADT] Stat ADT 06/05/20 15:32 Ordered Admission Status [Patient Status] [ADT] Routine ADT 06/05/20 15:32 Ordered CULTURE URINE [RM] Stat Lab 06/05/20 13:45 Received cefTRIAXone [Rocephin] 1 gm Med 06/05/20 15:20 Ordered Sodium Chloride 0.9% [Normal Saline] 50 ml IV ONETIME Medication Orders Ceftriaxone Sodium 1 gm/ (Sodium Chloride) 50 mls @ 100 mls/hr IV ONETIME ONE Stop: 06/05/20 15:49 Labs: Laboratory Tests 06/05/20 06/05/20 06/05/20 Range/Units 13:45 13:47 14:00 WBC 5.5 (5.0-10.0) 10^3/uL RBC 3.07 L (4.2-5.4) 10^6/uL Hgb 9.6 L (12.0-16.0) g/dL Hct 28.6 L (37.0-47.0) % MCV 93.2 (80-100) fL MCH 31.3 (27.0-34.0) pg MCHC 33.6 (33.0-35.0) g/dL Plt Count 74 L (150-450) 10^3/uL Neut % (Auto) 78.8 H (42.2-75.2) % Lymph % (Auto) 13.9 L (20.5-50.1) % [place] % (Auto) 7.3 (2-8) % Eos % (Auto) 0.0 L (1.0-3.0) % Baso % (Auto) 0.0 (0.0-1.0) % Sodium (136-145) mmol/L Potassium (3.5-5.1) mmol/L Chloride (98-107) mmol/L Carbon Dioxide (21-32) mmol/L Anion Gap (7-13) mEq/L BUN (7-18) mg/dL Creatinine (0.55-1.02) mg/dL Est Cr Clr Drug Dosing mL/min Estimated GFR (MDRD) BUN/Creatinine Ratio (No establ ref range) Glucose (74-99) mg/dL Lactic Acid (0.4-2.0) mmol/L Calcium (8.5-10.1) mg/dL Total Bilirubin (0.2-1.0) mg/dL AST (15-37) U/L ALT (14-59) U/L Alkaline Phosphatase (46-116) U/L C-Reactive Protein (0.0-0.9) mg/dL Total Protein (6.4-8.2) g/dL Albumin (3.4-5.0) g/dL Globulin Albumin/Globulin Ratio Urine Color Yellow (YELLOW) Urine Appearance Turbid (CLEAR) Urine pH 6.0 (5.0-9.0) Ur Specific [place] 1.020 (1.005-1.030) Urine Protein 30 H (NEGATIVE) Urine Glucose (UA) Negative (NEGATIVE) Urine Ketones Negative (NEGATIVE) Urine Occult Blood Moderate H (NEGATIVE) Urine Nitrite Negative (NEGATIVE) Urine Bilirubin Negative (NEGATIVE) Urine Urobilinogen 0.2 (0.2-1.0) mg/dL Ur Leukocyte Esterase Moderate H (NEGATIVE) Urine RBC 10-20 H /HPF Urine WBC >100 H (0-5/HPF) /HPF Ur Epithelial Cells Few (NOT SEEN) /HPF Amorphous Sediment Occasional (NOT SEEN) /HPF Urine Bacteria Few (0-FEW/HPF) /HPF Urine Mucus Not seen (NOT SEEN) /LPF Influenza Type A RNA Negative (NEGATIVE) Influenza Type B RNA Negative (NEGATIVE) SARS-CoV-2 RNA ([place]) Negative (NEGATIVE) 06/05/20 06/05/20 Range/Units 14:00 14:00 WBC (5.0-10.0) 10^3/uL RBC (4.2-5.4) 10^6/uL Hgb (12.0-16.0) g/dL Hct (37.0-47.0) % MCV (80-100) fL MCH (27.0-34.0) pg MCHC (33.0-35.0) g/dL Plt Count (150-450) 10^3/uL Neut % (Auto) (42.2-75.2) % Lymph % (Auto) (20.5-50.1) % [place] % (Auto) (2-8) % Eos % (Auto) (1.0-3.0) % Baso % (Auto) (0.0-1.0) % Sodium 134 L (136-145) mmol/L Potassium 3.8 (3.5-5.1) mmol/L Chloride 102 (98-107) mmol/L Carbon Dioxide 23 (21-32) mmol/L Anion Gap 12.8 (7-13) mEq/L BUN 20 H (7-18) mg/dL Creatinine 1.27 H (0.55-1.02) mg/dL Est Cr Clr Drug Dosing 35.59 mL/min Estimated GFR (MDRD) 42 BUN/Creatinine Ratio 15.7 (No establ ref range) Glucose 91 (74-99) mg/dL Lactic Acid 1.8 (0.4-2.0) mmol/L Calcium 9.1 (8.5-10.1) mg/dL Total Bilirubin 1.0 (0.2-1.0) mg/dL AST 55 H (15-37) U/L ALT 31 (14-59) U/L Alkaline Phosphatase 109 (46-116) U/L C-Reactive Protein 6.3 H (0.0-0.9) mg/dL Total Protein 7.0 (6.4-8.2) g/dL Albumin 2.3 L (3.4-5.0) g/dL Globulin 4.7 Albumin/Globulin Ratio 0.49 Urine Color (YELLOW) Urine Appearance (CLEAR) Urine pH (5.0-9.0) Ur Specific [place] (1.005-1.030) Urine Protein (NEGATIVE) Urine Glucose (UA) (NEGATIVE) Urine Ketones (NEGATIVE) Urine Occult Blood (NEGATIVE) Urine Nitrite (NEGATIVE) Urine Bilirubin (NEGATIVE) Urine Urobilinogen (0.2-1.0) mg/dL Ur Leukocyte Esterase (NEGATIVE) Urine RBC /HPF Urine WBC (0-5/HPF) /HPF Ur Epithelial Cells (NOT SEEN) /HPF Amorphous Sediment (NOT SEEN) /HPF Urine Bacteria (0-FEW/HPF) /HPF Urine Mucus (NOT SEEN) /LPF Influenza Type A RNA (NEGATIVE) Influenza Type B RNA (NEGATIVE) SARS-CoV-2 RNA ([place]) (NEGATIVE) Meds: Medications Generic Name Dose Route Start Last Admin Trade Name Freq PRN Reason Stop Dose Admin Ceftriaxone Sodium 1 gm/ 50 mls @ 100 mls/hr 06/05/20 15:20 Sodium Chloride IV 06/05/20 15:49 ONETIME ONE Discontinued Medications Generic Name Dose Route Start Last Admin Trade Name Freq PRN Reason Stop Dose Admin Acetaminophen 650 mg 06/05/20 14:37 06/05/20 14:43 Tylenol PO 06/05/20 14:38 650 mg NOW ONE Administration - Re-Assessments/Exams Free Text/Narrative Re-Assessment/Exam: 06/05/20 UA remarkable for UTI. CBC reveals RBC 3.07 with left shift, Hgb 9.6, Hct 28.6, and Platelet 79. CRP 6.3 Creatinine 1.27. Given history of pancytopenia with fever and shaking chills, case discussed with Dr. Bob who kindly agreed to accept patient for observation. Blood cultures ordered. Patient started on Rocephin IV. Departure - Departure Time of Disposition: 15:40 Disposition: Refer to Observation Condition: Good Clinical Impression: History of pancytopenia, Elevated C-reactive protein (CRP), Elevated serum creatinine Urinary tract infection Qualifiers: Urinary tract infection type: acute cystitis Hematuria presence: with hematuria Qualified Code(s): N30.01 - Acute cystitis with hematuria - Discharge Information Sepsis Event Note (ED) - Focused Exam Vital Signs: Vital Signs Temp Pulse Resp BP Pulse Ox 06/05/20 14:07 102.6 F H 97 96 H 125/50 L 96 - My Orders Last 24 Hours: My Active Orders 06/05/20 13:45 CULTURE URINE [RM] Stat 06/05/20 15:20 cefTRIAXone [Rocephin] 1 gm Sodium Chloride 0.9% [Normal Saline] 50 ml IV ONETIME 06/05/20 15:32 Admission Diagnosis [ADT] Stat Admission Status [Patient Status] [ADT] Routine - Assessment/Plan Last 24 Hours: My Active Orders 06/05/20 13:45 CULTURE URINE [RM] Stat 06/05/20 15:20 cefTRIAXone [Rocephin] 1 gm Sodium Chloride 0.9% [Normal Saline] 50 ml IV ONETIME 06/05/20 15:32 Admission Diagnosis [ADT] Stat Admission Status [Patient Status] [ADT] Routine
[2020-06-05 14:40] LABS: CORONAVIRUS COVID-19 NAA NEGATIVE (NEGATIVE)
[2020-06-05 14:41] LABS: ANION GAP 12.8 mEq/L (7-13)
[~2020-06-05 15:42] MED LIST: Acetaminophen 325 MG Tab PO ONE; cefTRIAXone 1 GM in Sodium Chloride 0.9% 50 ML IV ONE
[2020-06-05] MEDS ORDERED: METAXALONE 800 MG PO PRN (16:57)
[2020-06-05] MEDS ORDERED: Capsaicin 0.025% Crm 60 GM Tube TOP PRN (16:57)
[2020-06-05] MEDS ORDERED: cefTRIAXone 1 GM in Sodium Chloride 0.9% 50 ML IV SCH (17:15)
--- NOTE | 2020-06-05 17:17 | PCM.HP ---
H&P History of Present Illness - General Date of Service: 06/05/20 Admit Problem/Dx: Admission Diagnosis/Problem Admission Diagnosis/Problem Urinary tract infection Source of Information: Patient History Limitations: Reports: No Limitations - History of Present Illness Initial Comments - Free Text/Narative: Patient is a 69-year-old female who presents with a weeklong history of frequency, dysuria, fevers as high as 100.4. Patient reports over the past week she has had to go to the bathroom every 30 minutes and very little urine comes out at each bathroom visit. She also reports burning whenever she pees. She denies chest pain, shortness of breath, abdominal pain, lower extremity edema or any other associated symptoms. There are no aggravating or alleviating factors. Onset of Symptoms: Reports: Gradual Symptom Onset Date: 05/29/20 Duration of Symptoms: Reports: Week(s):, Getting Worse Quality: Reports: Burning Severity: Moderate Improves with: Reports: None Worsens with: Reports: None Forehead Pain Score (Numeric/FACES): 5 - Related Data Allergies/Adverse Reactions: Allergies Allergy/AdvReac Type Severity Reaction Status Date / Time amoxicillin Allergy unknown Verified 06/05/20 16:18 Home Medications: Home Meds Calc/D3/Mag/Zn/Kailey/Matty/[place] [Calcium 600 MG Plus Vit D] 1 each PO BID 06/08/13 [History] Fish Oil/Capay-3 Fatty Acids [Fish Oil] 1,000 mg PO DAILY 06/08/13 [History] Gabapentin 150 mg PO BID 06/08/13 [History] Multivitamin [Multi Vitamin Daily] 1 each PO DAILY 06/08/13 [History] Zolpidem [Ambien] 5 mg PO BEDTIME 06/08/13 [History] Aspirin 81 mg PO DAILY 03/06/20 [History] Capsaicin 42.5 gm TP QID PRN 03/06/20 [History] Hypromellose [Pure & Gentle Eye Drops] 1 drop EYEBOTH ASDIRECTED PRN 03/06/20 [History] Lifitegrast [Xiidra] 1 drop EYEBOTH BID 03/06/20 [History] Losartan [Cozaar] 25 mg PO DAILY 03/06/20 [History] Melatonin 3 mg PO BEDTIME 03/06/20 [History] Metaxalone [Metaxall] 800 mg PO ASDIRECTED PRN 03/06/20 [History] Naproxen 500 mg PO Q12H PRN 03/06/20 [History] Ondansetron [Zofran ODT] 4 mg PO Q4H PRN 03/06/20 [History] atorvaSTATin [Lipitor] 40 mg PO DAILY 03/06/20 [History] hydroCHLOROthiazide [Hydrochlorothiazide] 12.5 mg PO DAILY 03/06/20 [History] Past Medical History HEENT History: Reports: Impaired Vision Other HEENT History: wears glasses, DID NOT BRING WITH TODAY (03/06/20) Cardiovascular History: Reports: Cardiomyopathy, High Cholesterol, Hypertension, Pacemaker Respiratory History: Reports: SOB Gastrointestinal History: Reports: Chronic Constipation, Irritable Bowel Syndrome Genitourinary History: Reports: UTI, Recurrent 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: Musculoskeletal History: Reports: RA Neurological History: Reports: None Psychiatric History: Reports: None Endocrine/Metabolic History: Reports: None, Obesity/BMI 30+ Hematologic History: Reports: Anemia, Other (See Below) Other Hematologic History: Neutropenia, thrombocytopenia Immunologic History: Reports: Immunosuppression Oncologic (Cancer) History: Reports: None Dermatologic History: Reports: None - Infectious Disease History Infectious Disease History: Reports: Chicken Pox - Past Surgical History HEENT Surgical History: Reports: None Cardiovascular Surgical History: Reports: None Respiratory Surgical History: Reports: None GI Surgical History: Reports: Cholecystectomy Female Surgical History: Reports: Hysterectomy, Nephrectomy Musculoskeletal Surgical History: Reports: None Oncologic Surgical History: Reports: Other (See Below) Other Oncologic Surgeries/Procedures: bone marrow biopsy Dermatological Surgical History: Reports: None Social & Family History - Family History Family Medical History: No Pertinent Family History - Tobacco Use Tobacco Use Status *Q: Never Tobacco User Second Hand Smoke Exposure: No - Caffeine Use Caffeine Use: Reports: Coffee - Recreational Drug Use Recreational Drug Use: No - Living Situation & Occupation Living situation: Reports: , with Spouse Occupation: Retired H&P Review of Systems - Review of Systems: Review Of Systems: See Below General: Reports: Fever HEENT: Reports: No Symptoms Pulmonary: Reports: No Symptoms Cardiovascular: Reports: No Symptoms Gastrointestinal: Reports: No Symptoms Genitourinary: Reports: Dysuria, Frequency, Burning Musculoskeletal: Reports: No Symptoms Skin: Reports: No Symptoms Psychiatric: Reports: No Symptoms Neurological: Reports: No Symptoms Hematologic/Lymphatic: Reports: No Symptoms Immunologic: Reports: No Symptoms Exam - Exam Exam: See Below - Vital Signs Vital Signs: Last Vital Signs Temp 100.3 F 06/05/20 16:01 Pulse 84 06/05/20 16:01 Resp 20 06/05/20 16:01 BP 96/41 L 06/05/20 16:01 Pulse Ox 98 06/05/20 16:01 Weight: 155 lb 12.8 oz - Exam General: Alert, Oriented HEENT: EOMI Neck: Trachea Midline Lungs: Clear to Auscultation, Normal Respiratory Effort Cardiovascular: Regular Rate GI/Abdominal Exam: Normal Bowel Sounds, Soft, Non-Tender, No Distention Extremities: Normal Inspection Skin: Warm, Dry, Intact Neurological: Cranial Nerves Intact, Normal Tone Neuro Extensive - Mental Status: Alert, Oriented x3, Normal Mood/Affect Neuro Extensive - Motor, Sensory, Reflexes: CN II-XII Intact Psychiatric: Alert, Normal Affect, Normal Mood - Patient Data Lab Results Last 24 hrs: Laboratory Results - last 24 hr 06/05/20 06/05/20 06/05/20 Range/Units 13:45 13:47 14:00 WBC 5.5 (5.0-10.0) 10^3/uL RBC 3.07 L (4.2-5.4) 10^6/uL Hgb 9.6 L (12.0-16.0) g/dL Hct 28.6 L (37.0-47.0) % MCV 93.2 (80-100) fL MCH 31.3 (27.0-34.0) pg MCHC 33.6 (33.0-35.0) g/dL Plt Count 74 L (150-450) 10^3/uL Neut % (Auto) 78.8 H (42.2-75.2) % Lymph % (Auto) 13.9 L (20.5-50.1) % Carbon % (Auto) 7.3 (2-8) % Eos % (Auto) 0.0 L (1.0-3.0) % Baso % (Auto) 0.0 (0.0-1.0) % Sodium (136-145) mmol/L Potassium (3.5-5.1) mmol/L Chloride (98-107) mmol/L Carbon Dioxide (21-32) mmol/L Anion Gap (7-13) mEq/L BUN (7-18) mg/dL Creatinine (0.55-1.02) mg/dL Est Cr Clr Drug Dosing mL/min Estimated GFR (MDRD) BUN/Creatinine Ratio (No establ ref range) Glucose (74-99) mg/dL Lactic Acid (0.4-2.0) mmol/L Calcium (8.5-10.1) mg/dL Total Bilirubin (0.2-1.0) mg/dL AST (15-37) U/L ALT (14-59) U/L Alkaline Phosphatase (46-116) U/L C-Reactive Protein (0.0-0.9) mg/dL Total Protein (6.4-8.2) g/dL Albumin (3.4-5.0) g/dL Globulin Albumin/Globulin Ratio Urine Color Yellow (YELLOW) Urine Appearance Turbid (CLEAR) Urine pH 6.0 (5.0-9.0) Ur Specific [place] 1.020 (1.005-1.030) Urine Protein 30 H (NEGATIVE) Urine Glucose (UA) Negative (NEGATIVE) Urine Ketones Negative (NEGATIVE) Urine Occult Blood Moderate H (NEGATIVE) Urine Nitrite Negative (NEGATIVE) Urine Bilirubin Negative (NEGATIVE) Urine Urobilinogen 0.2 (0.2-1.0) mg/dL Ur Leukocyte Esterase Moderate H (NEGATIVE) Urine RBC 10-20 H /HPF Urine WBC >100 H (0-5/HPF) /HPF Ur Epithelial Cells Few (NOT SEEN) /HPF Amorphous Sediment Occasional (NOT SEEN) /HPF Urine Bacteria Few (0-FEW/HPF) /HPF Urine Mucus Not seen (NOT SEEN) /LPF Influenza Type A RNA Negative (NEGATIVE) Influenza Type B RNA Negative (NEGATIVE) SARS-CoV-2 RNA (LILIANA) Negative (NEGATIVE) 06/05/20 06/05/20 Range/Units 14:00 14:00 WBC (5.0-10.0) 10^3/uL RBC (4.2-5.4) 10^6/uL Hgb (12.0-16.0) g/dL Hct (37.0-47.0) % MCV (80-100) fL MCH (27.0-34.0) pg MCHC (33.0-35.0) g/dL Plt Count (150-450) 10^3/uL Neut % (Auto) (42.2-75.2) % Lymph % (Auto) (20.5-50.1) % Carbon % (Auto) (2-8) % Eos % (Auto) (1.0-3.0) % Baso % (Auto) (0.0-1.0) % Sodium 134 L (136-145) mmol/L Potassium 3.8 (3.5-5.1) mmol/L Chloride 102 (98-107) mmol/L Carbon Dioxide 23 (21-32) mmol/L Anion Gap 12.8 (7-13) mEq/L BUN 20 H (7-18) mg/dL Creatinine 1.27 H (0.55-1.02) mg/dL Est Cr Clr Drug Dosing 35.59 mL/min Estimated GFR (MDRD) 42 BUN/Creatinine Ratio 15.7 (No establ ref range) Glucose 91 (74-99) mg/dL Lactic Acid 1.8 (0.4-2.0) mmol/L Calcium 9.1 (8.5-10.1) mg/dL Total Bilirubin 1.0 (0.2-1.0) mg/dL AST 55 H (15-37) U/L ALT 31 (14-59) U/L Alkaline Phosphatase 109 (46-116) U/L C-Reactive Protein 6.3 H (0.0-0.9) mg/dL Total Protein 7.0 (6.4-8.2) g/dL Albumin 2.3 L (3.4-5.0) g/dL Globulin 4.7 Albumin/Globulin Ratio 0.49 Urine Color (YELLOW) Urine Appearance (CLEAR) Urine pH (5.0-9.0) Ur Specific [place] (1.005-1.030) Urine Protein (NEGATIVE) Urine Glucose (UA) (NEGATIVE) Urine Ketones (NEGATIVE) Urine Occult Blood (NEGATIVE) Urine Nitrite (NEGATIVE) Urine Bilirubin (NEGATIVE) Urine Urobilinogen (0.2-1.0) mg/dL Ur Leukocyte Esterase (NEGATIVE) Urine RBC /HPF Urine WBC (0-5/HPF) /HPF Ur Epithelial Cells (NOT SEEN) /HPF Amorphous Sediment (NOT SEEN) /HPF Urine Bacteria (0-FEW/HPF) /HPF Urine Mucus (NOT SEEN) /LPF Influenza Type A RNA (NEGATIVE) Influenza Type B RNA (NEGATIVE) SARS-CoV-2 RNA (LILIANA) (NEGATIVE) Result Diagrams: 06/05/20 14:00 06/05/20 14:00 - Problem List (1) UTI (urinary tract infection) SNOMED Code(s): 67084534 ICD Code: N39.0 - URINARY TRACT INFECTION, SITE NOT SPECIFIED Status: Acute Priority: Medium Current Visit: Yes Qualifiers: Urinary tract infection type: acute cystitis Hematuria presence: with hematuria Qualified Code(s): N30.01 - Acute cystitis with hematuria Problem List Initiated/Reviewed/Updated: Yes Orders Last 24hrs: Active Orders 24 hr Category Date Time Status Admission Diagnosis [ADT] Stat ADT 06/05/20 15:32 Ordered Admission Status [Patient Status] [ADT] Routine ADT 06/05/20 15:32 Active Ambulate [RC] ASDIRECTED Care 06/05/20 16:53 Active Intake and Output [RC] QSHIFT Care 06/05/20 16:55 Active May Shower [RC] ASDIRECTED Care 06/05/20 16:53 Active Oxygen Therapy [RC] PRN Care 06/05/20 16:54 Active VTE/DVT Education [RC] PER UNIT ROUTINE Care 06/05/20 16:54 Active Vital Signs [RC] Q4H Care 06/05/20 16:54 Active Regular Diet [DIET] Diet 06/05/20 Dinner Active BASIC METABOLIC PANEL,BMP [CHEM] Routine Lab 06/06/20 06:00 Ordered CBC W/O DIFF,HEMOGRAM [HEME] Routine Lab 06/06/20 06:00 Ordered CULTURE BLOOD [BC] Stat Lab 06/05/20 14:00 Received CULTURE BLOOD [BC] Stat Lab 06/05/20 15:49 Received CULTURE URINE [RM] Stat Lab 06/05/20 13:45 Received Aspirin Med 06/06/20 09:00 Ordered 81 mg PO DAILY Capsaicin Med 06/05/20 16:57 Ordered 42.5 gm TP QID PRN Enoxaparin [Lovenox] Med 06/06/20 09:00 Pending 40 mg SUBCUT DAILY Gabapentin [Neurontin] Med 06/05/20 21:00 Ordered 150 mg PO BID Losartan [Cozaar] Med 06/06/20 09:00 Ordered 25 mg PO DAILY Melatonin Med 06/05/20 21:00 Ordered 3 mg PO BEDTIME Metaxalone Med 06/05/20 16:57 Ordered 800 mg PO ASDIRECTED PRN Zolpidem [Ambien] Med 06/05/20 21:00 Ordered 5 mg PO BEDTIME atorvaSTATin [Lipitor] Med 06/06/20 09:00 Ordered 40 mg PO DAILY cefTRIAXone [Rocephin] 1 gm Med 06/05/20 17:15 Ordered Sodium Chloride 0.9% [Normal Saline] 50 ml IV Q24H hydroCHLOROthiazide Med 06/06/20 09:00 Ordered 12.5 mg PO DAILY Blood Culture x2 Reflex Set [OM.PC] Stat Oth 06/05/20 16:25 Ordered Resuscitation Status Routine Resus Stat 06/05/20 16:53 Ordered Medication Orders Aspirin (Aspirin) 81 mg PO DAILY MATT Enoxaparin Sodium (Lovenox) 40 mg SUBCUT DAILY MATT Gabapentin (Neurontin) 150 mg PO BID MATT Hydrochlorothiazide (Hydrochlorothiazide) 12.5 mg PO DAILY [facility] Ceftriaxone Sodium 1 gm/ (Sodium Chloride) 50 mls @ 100 mls/hr IV Q24H [facility] Losartan Potassium (Cozaar) 25 mg PO DAILY [facility] Melatonin (Melatonin) 3 mg PO BEDTIME MATT Non-Formulary Medication (Atorvastatin [Lipitor]) 40 mg PO DAILY [facility] Non-Formulary Medication (Capsaicin) 42.5 gm TP QID PRN PRN Reason: Pain Non-Formulary Medication (Metaxalone) 800 mg PO ASDIRECTED PRN PRN Reason: Muscle Spasm Zolpidem Tartrate (Ambien) 5 mg PO BEDTIME [facility] Assessment/Plan Comment:: -UTI Patient with dysuria, frequency, fever UA show LE and bacteria Started on ceftriaxone No IV fluids at this time as patient tolerating PO -Pancytopenia Chronic Continue to trend CBC Continue home medications
[2020-06-05] MEDS ORDERED: Melatonin 3 MG Tab PO SCH (21:00)
[2020-06-05] MEDS ORDERED: Gabapentin 300 MG Cap PO SCH (21:00)
[2020-06-05] MEDS: Zolpidem 5 MG Tab PO SCH (21:28)
[2020-06-05] MEDS: Acetaminophen 325 MG Tab PO PRN (23:27)
[2020-06-06 06:40] LABS: ANION GAP 12.6 mEq/L (7-13)
[2020-06-06] MEDS: Acetaminophen 325 MG Tab PO PRN ×4 (07:56→22:11)
[2020-06-06] MEDS ORDERED: Sodium Chloride 0.9% 1,000 ML IV SCH (08:30)
[2020-06-06] MEDS: Cholecalciferol (Vitamin D3) 25 MCG Tab PO SCH (09:23)
[2020-06-06] MEDS: Gabapentin 300 MG Cap PO SCH ×2 (09:23→20:22)
[2020-06-06] MEDS: Aspirin 81 MG Tab.Chew PO SCH (09:24)
[2020-06-06] MEDS: Losartan 50 MG Tab PO SCH (09:24)
[2020-06-06] MEDS: atorvaSTATin 20 MG Tab PO SCH (09:24)
[2020-06-06] MEDS: Enoxaparin 40 MG/0.4 ML Syringe SUBCUT SCH (09:26)
[2020-06-06] MEDS: Hydrochlorothiazide 25 MG Tab PO SCH (09:26)
--- NOTE | 2020-06-06 09:56 | PCM.PN ---
- General Info Date of Service: 06/06/20 Admission Dx/Problem (Free Text): Admission Diagnosis/Problem Admission Diagnosis/Problem Urinary tract infection Subjective Update: Patient seen and examined today. Dysuria is improving. Still spiking fevers up to 103. - Review of Systems General: Reports: Fever, Fatigue HEENT: Reports: No Symptoms Pulmonary: Reports: No Symptoms Cardiovascular: Reports: No Symptoms Gastrointestinal: Reports: No Symptoms Genitourinary: Reports: Dysuria, Frequency Musculoskeletal: Reports: No Symptoms Skin: Reports: No Symptoms Neurological: Reports: No Symptoms Psychiatric: Reports: No Symptoms - Patient Data Vitals - Most Recent: Last Vital Signs Temp 102.3 F H 06/06/20 08:00 Pulse 86 06/06/20 04:00 Resp 18 06/06/20 08:00 BP 138/59 L 06/06/20 09:24 Pulse Ox 99 06/06/20 08:00 Weight - Most Recent: 155 lb 12.8 oz I&O - Last 24 Hours: Intake & Output 06/05/20 06/06/20 06/06/20 22:59 06:59 14:59 Intake Total 183 420 Output Total 250 100 Balance 183 -250 320 Lab Results Last 24 Hours: Laboratory Results - last 24 hr 06/05/20 06/05/20 06/05/20 Range/Units 13:45 13:47 14:00 WBC 5.5 (5.0-10.0) 10^3/uL RBC 3.07 L (4.2-5.4) 10^6/uL Hgb 9.6 L (12.0-16.0) g/dL Hct 28.6 L (37.0-47.0) % MCV 93.2 (80-100) fL MCH 31.3 (27.0-34.0) pg MCHC 33.6 (33.0-35.0) g/dL Plt Count 74 L (150-450) 10^3/uL Neut % (Auto) 78.8 H (42.2-75.2) % Lymph % (Auto) 13.9 L (20.5-50.1) % [place] % (Auto) 7.3 (2-8) % Eos % (Auto) 0.0 L (1.0-3.0) % Baso % (Auto) 0.0 (0.0-1.0) % Sodium (136-145) mmol/L Potassium (3.5-5.1) mmol/L Chloride (98-107) mmol/L Carbon Dioxide (21-32) mmol/L Anion Gap (7-13) mEq/L BUN (7-18) mg/dL Creatinine (0.55-1.02) mg/dL Est Cr Clr Drug Dosing mL/min Estimated GFR (MDRD) BUN/Creatinine Ratio (No establ ref range) Glucose (74-99) mg/dL Lactic Acid (0.4-2.0) mmol/L Calcium (8.5-10.1) mg/dL Total Bilirubin (0.2-1.0) mg/dL AST (15-37) U/L ALT (14-59) U/L Alkaline Phosphatase (46-116) U/L C-Reactive Protein (0.0-0.9) mg/dL Total Protein (6.4-8.2) g/dL Albumin (3.4-5.0) g/dL Globulin Albumin/Globulin Ratio Urine Color Yellow (YELLOW) Urine Appearance Turbid (CLEAR) Urine pH 6.0 (5.0-9.0) Ur Specific [place] 1.020 (1.005-1.030) Urine Protein 30 H (NEGATIVE) Urine Glucose (UA) Negative (NEGATIVE) Urine Ketones Negative (NEGATIVE) Urine Occult Blood Moderate H (NEGATIVE) Urine Nitrite Negative (NEGATIVE) Urine Bilirubin Negative (NEGATIVE) Urine Urobilinogen 0.2 (0.2-1.0) mg/dL Ur Leukocyte Esterase Moderate H (NEGATIVE) Urine RBC 10-20 H /HPF Urine WBC >100 H (0-5/HPF) /HPF Ur Epithelial Cells Few (NOT SEEN) /HPF Amorphous Sediment Occasional (NOT SEEN) /HPF Urine Bacteria Few (0-FEW/HPF) /HPF Urine Mucus Not seen (NOT SEEN) /LPF Influenza Type A RNA Negative (NEGATIVE) Influenza Type B RNA Negative (NEGATIVE) SARS-CoV-2 RNA ([place]IL[place]NA) Negative (NEGATIVE) 06/05/20 06/05/20 06/06/20 Range/Units 14:00 14:00 06:10 WBC 3.1 L (5.0-10.0) 10^3/uL RBC 2.94 L (4.2-5.4) 10^6/uL Hgb 9.1 L (12.0-16.0) g/dL Hct 27.7 L (37.0-47.0) % MCV 94.2 (80-100) fL MCH 31.0 (27.0-34.0) pg MCHC 32.9 L (33.0-35.0) g/dL Plt Count 61 L (150-450) 10^3/uL Neut % (Auto) (42.2-75.2) % Lymph % (Auto) (20.5-50.1) % [place] % (Auto) (2-8) % Eos % (Auto) (1.0-3.0) % Baso % (Auto) (0.0-1.0) % Sodium 134 L (136-145) mmol/L Potassium 3.8 (3.5-5.1) mmol/L Chloride 102 (98-107) mmol/L Carbon Dioxide 23 (21-32) mmol/L Anion Gap 12.8 (7-13) mEq/L BUN 20 H (7-18) mg/dL Creatinine 1.27 H (0.55-1.02) mg/dL Est Cr Clr Drug Dosing 35.59 mL/min Estimated GFR (MDRD) 42 BUN/Creatinine Ratio 15.7 (No establ ref range) Glucose 91 (74-99) mg/dL Lactic Acid 1.8 (0.4-2.0) mmol/L Calcium 9.1 (8.5-10.1) mg/dL Total Bilirubin 1.0 (0.2-1.0) mg/dL AST 55 H (15-37) U/L ALT 31 (14-59) U/L Alkaline Phosphatase 109 (46-116) U/L C-Reactive Protein 6.3 H (0.0-0.9) mg/dL Total Protein 7.0 (6.4-8.2) g/dL Albumin 2.3 L (3.4-5.0) g/dL Globulin 4.7 Albumin/Globulin Ratio 0.49 Urine Color (YELLOW) Urine Appearance (CLEAR) Urine pH (5.0-9.0) Ur Specific [place] (1.005-1.030) Urine Protein (NEGATIVE) Urine Glucose (UA) (NEGATIVE) Urine Ketones (NEGATIVE) Urine Occult Blood (NEGATIVE) Urine Nitrite (NEGATIVE) Urine Bilirubin (NEGATIVE) Urine Urobilinogen (0.2-1.0) mg/dL Ur Leukocyte Esterase (NEGATIVE) Urine RBC /HPF Urine WBC (0-5/HPF) /HPF Ur Epithelial Cells (NOT SEEN) /HPF Amorphous Sediment (NOT SEEN) /HPF Urine Bacteria (0-FEW/HPF) /HPF Urine Mucus (NOT SEEN) /LPF Influenza Type A RNA (NEGATIVE) Influenza Type B RNA (NEGATIVE) SARS-CoV-2 RNA ([place]IL[place]NA) (NEGATIVE) 06/06/20 Range/Units 06:10 WBC (5.0-10.0) 10^3/uL RBC (4.2-5.4) 10^6/uL Hgb (12.0-16.0) g/dL Hct (37.0-47.0) % MCV (80-100) fL MCH (27.0-34.0) pg MCHC (33.0-35.0) g/dL Plt Count (150-450) 10^3/uL Neut % (Auto) (42.2-75.2) % Lymph % (Auto) (20.5-50.1) % [place] % (Auto) (2-8) % Eos % (Auto) (1.0-3.0) % Baso % (Auto) (0.0-1.0) % Sodium 134 L (136-145) mmol/L Potassium 3.6 (3.5-5.1) mmol/L Chloride 102 (98-107) mmol/L Carbon Dioxide 23 (21-32) mmol/L Anion Gap 12.6 (7-13) mEq/L BUN 28 H (7-18) mg/dL Creatinine 1.34 H (0.55-1.02) mg/dL Est Cr Clr Drug Dosing 33.73 mL/min Estimated GFR (MDRD) 39 BUN/Creatinine Ratio (No establ ref range) Glucose 92 (74-99) mg/dL Lactic Acid (0.4-2.0) mmol/L Calcium 8.8 (8.5-10.1) mg/dL Total Bilirubin (0.2-1.0) mg/dL AST (15-37) U/L ALT (14-59) U/L Alkaline Phosphatase (46-116) U/L C-Reactive Protein (0.0-0.9) mg/dL Total Protein (6.4-8.2) g/dL Albumin (3.4-5.0) g/dL Globulin Albumin/Globulin Ratio Urine Color (YELLOW) Urine Appearance (CLEAR) Urine pH (5.0-9.0) Ur Specific [place] (1.005-1.030) Urine Protein (NEGATIVE) Urine Glucose (UA) (NEGATIVE) Urine Ketones (NEGATIVE) Urine Occult Blood (NEGATIVE) Urine Nitrite (NEGATIVE) Urine Bilirubin (NEGATIVE) Urine Urobilinogen (0.2-1.0) mg/dL Ur Leukocyte Esterase (NEGATIVE) Urine RBC /HPF Urine WBC (0-5/HPF) /HPF Ur Epithelial Cells (NOT SEEN) /HPF Amorphous Sediment (NOT SEEN) /HPF Urine Bacteria (0-FEW/HPF) /HPF Urine Mucus (NOT SEEN) /LPF Influenza Type A RNA (NEGATIVE) Influenza Type B RNA (NEGATIVE) SARS-CoV-2 RNA ([place]ILIANA) (NEGATIVE) [place] Results Last 24 Hours: Microbiology 06/05/20 13:45 Urine Culture - Preliminary Urine, Clean Catch 06/05/20 15:49 Aerobic Blood Culture - Preliminary Blood - Arm, Right 06/05/20 14:00 Aerobic Blood Culture - Preliminary Blood - Venous - Iv Start Anaerobic Blood Culture - Preliminary Med Orders - Current: Current Medications Acetaminophen (Tylenol) 650 mg PO Q4H PRN PRN Reason: Pain (moderate 4-6) Last Admin: 06/06/20 07:56 Dose: 650 mg Documented by: Aspirin (Aspirin) 81 mg PO DAILY [facility] Last Admin: 06/06/20 09:24 Dose: 81 mg Documented by: Atorvastatin Calcium (Lipitor) 40 mg PO DAILY [facility] Last Admin: 06/06/20 09:24 Dose: 40 mg Documented by: Capsaicin (Zostrix 0.025% Crm) 0 gm TOP QID PRN PRN Reason: Pain Cholecalciferol (Vitamin D3) 25 mcg PO DAILY [facility] Last Admin: 06/06/20 09:23 Dose: 25 mcg Documented by: Enoxaparin Sodium (Lovenox) 40 mg SUBCUT DAILY [facility] Last Admin: 06/06/20 09:26 Dose: 40 mg Documented by: Gabapentin (Neurontin) 300 mg PO BID [facility] Last Admin: 06/06/20 09:23 Dose: 300 mg Documented by: Hydrochlorothiazide (Hydrochlorothiazide) 12.5 mg PO DAILY [facility] Last Admin: 06/06/20 09:26 Dose: 12.5 mg Documented by: Ceftriaxone Sodium 1 gm/ (Sodium Chloride) 50 mls @ 100 mls/hr IV Q24H [facility] Sodium Chloride (Normal Saline) 1,000 mls @ 100 mls/hr IV ASDIRECTED [facility] Last Admin: 06/06/20 09:28 Dose: 100 mls/hr Documented by: Losartan Potassium (Cozaar) 25 mg PO DAILY [facility] Last Admin: 06/06/20 09:24 Dose: 25 mg Documented by: Melatonin (Melatonin) 5 mg PO BEDTIME [facility] Non-Formulary Medication (Metaxalone) 800 mg PO ASDIRECTED PRN PRN Reason: Muscle Spasm Zolpidem Tartrate (Ambien) 5 mg PO BEDTIME [facility] Last Admin: 06/05/20 21:28 Dose: 5 mg Documented by: Discontinued Medications Acetaminophen (Tylenol) 650 mg PO NOW ONE Stop: 06/05/20 14:38 Last Admin: 06/05/20 14:43 Dose: 650 mg Documented by: Gabapentin (Neurontin) 150 mg PO BID [facility] Ceftriaxone Sodium 1 gm/ (Sodium Chloride) 50 mls @ 100 mls/hr IV ONETIME ONE Stop: 06/05/20 15:49 Last Infusion: 06/05/20 16:26 Dose: Infused Documented by: Ceftriaxone Sodium 1 gm/ (Sodium Chloride) 50 mls @ 100 mls/hr IV Q24H [facility] Last Admin: 06/05/20 17:50 Dose: Not Given Documented by: Melatonin (Melatonin) 3 mg PO BEDTIME [facility] Last Admin: 06/05/20 21:29 Dose: 3 mg Documented by: - Exam General: Alert, Oriented HEENT: Pupils Equal, Pupils Reactive, EOMI, Mucous Membr. Moist/[place] Neck: Supple Lungs: Clear to Auscultation, Normal Respiratory Effort Cardiovascular: Regular Rate, Regular Rhythm GI/Abdominal Exam: Normal Bowel Sounds, Soft, Non-Tender, No Organomegaly, No Distention, No Abnormal Bruit, No Mass, Pelvis Stable Back Exam: Normal Inspection, Full Range of Motion Extremities: Normal Inspection, Normal Range of Motion, Non-Tender, No Pedal Edema, Normal Capillary Refill Skin: Warm, Dry, Intact Neurological: No New Focal Deficit Psy/Mental Status: Alert, Normal Affect, Normal Mood Sepsis Event Note - Evaluation Sepsis Screening Result: No Definite Risk - Focused Exam Vital Signs: Vital Signs Temp Pulse Resp BP BP Pulse Ox 06/06/20 09:24 138/59 L 06/06/20 08:00 102.3 F H 18 138/59 L 99 06/06/20 04:00 98.4 F 86 18 120/53 L 99 06/06/20 01:26 100.4 F 06/05/20 23:28 103.1 F H 109 H 16 128/43 L 95 - Problem List Review Problem List Initiated/Reviewed/Updated: Yes - My Orders Last 24 Hours: My Active Orders 06/06/20 08:30 Sodium Chloride 0.9% [Normal Saline] 1,000 ml IV ASDIRECTED 06/06/20 09:00 Cholecalciferol (Vitamin D3) [Vitamin D3] 25 mcg PO DAILY Gabapentin [Neurontin] 300 mg PO BID 06/06/20 21:00 Melatonin 5 mg PO BEDTIME - Plan Plan:: UTI Patient with dysuria, frequency, fever UA show LE and bacteria - Continue on ceftriaxone - Give NS 1L at 100 cc/h - Repeat blood cultures and obtain CXR if continues to be febrile -Pancytopenia Chronic Continue to trend CBC CKD Creatinie at baseline Continue home medications
[2020-06-06] MEDS ORDERED: cefTRIAXone 1 GM in Sodium Chloride 0.9% 50 ML IV SCH (17:30)
[2020-06-06] MEDS: Zolpidem 5 MG Tab PO SCH (20:22)
[2020-06-06] MEDS ORDERED: Melatonin 3 MG Tab PO SCH (21:00)
[2020-06-07 06:30] LABS: ANION GAP 11.5 mEq/L (7-13)
[2020-06-07] MEDS: Acetaminophen 325 MG Tab PO PRN (08:00)
[2020-06-07] MEDS: Cholecalciferol (Vitamin D3) 25 MCG Tab PO SCH (09:30)
[2020-06-07] MEDS: Hydrochlorothiazide 25 MG Tab PO SCH (09:30)
[2020-06-07] MEDS: atorvaSTATin 20 MG Tab PO SCH (09:30)
[2020-06-07] MEDS: Losartan 50 MG Tab PO SCH (09:31)
[2020-06-07] MEDS: Aspirin 81 MG Tab.Chew PO SCH (09:31)
[2020-06-07] MEDS: Gabapentin 300 MG Cap PO SCH (09:32)
[2020-06-07] MEDS: Enoxaparin 40 MG/0.4 ML Syringe SUBCUT SCH (09:37)
[2020-06-07] MEDS ORDERED: Potassium Chloride 10 MEQ Tab.ER PO ONE (10:05)
--- NOTE | 2020-06-07 10:05 | PCM.PN ---
- General Info Date of Service: 06/07/20 Admission Dx/Problem (Free Text): Admission Diagnosis/Problem Admission Diagnosis/Problem Urinary tract infection Subjective Update: Patient seen and examined today. Still spiking fevers up to 102.3. Functional Status: Reports: Pain Controlled - Review of Systems General: Reports: Fever, Fatigue HEENT: Reports: No Symptoms Pulmonary: Reports: No Symptoms Cardiovascular: Reports: No Symptoms Gastrointestinal: Reports: No Symptoms Genitourinary: Reports: No Symptoms Musculoskeletal: Reports: No Symptoms Skin: Reports: No Symptoms Neurological: Reports: No Symptoms Psychiatric: Reports: No Symptoms - Patient Data Vitals - Most Recent: Last Vital Signs Temp 102.3 F H 06/07/20 08:12 Pulse 91 06/07/20 08:12 Resp 20 06/07/20 08:12 BP 151/54 H 06/07/20 09:31 Pulse Ox 98 06/07/20 08:12 Weight - Most Recent: 155 lb 12.8 oz I&O - Last 24 Hours: Intake & Output 06/06/20 06/07/20 06/07/20 22:59 06:59 14:59 Intake Total 1250 660 Output Total 275 525 100 Balance 975 135 -100 Lab Results Last 24 Hours: Laboratory Results - last 24 hr 06/07/20 06/07/20 Range/Units 05:38 05:38 WBC 3.1 L (5.0-10.0) 10^3/uL RBC 3.21 L (4.2-5.4) 10^6/uL Hgb 10.0 L (12.0-16.0) g/dL Hct 30.0 L (37.0-47.0) % MCV 93.5 (80-100) fL MCH 31.2 (27.0-34.0) pg MCHC 33.3 (33.0-35.0) g/dL Plt Count 64 L (150-450) 10^3/uL Sodium 132 L (136-145) mmol/L Potassium 3.5 (3.5-5.1) mmol/L Chloride 99 (98-107) mmol/L Carbon Dioxide 25 (21-32) mmol/L Anion Gap 11.5 (7-13) mEq/L BUN 23 H (7-18) mg/dL Creatinine 1.03 H (0.55-1.02) mg/dL Est Cr Clr Drug Dosing 43.89 mL/min Estimated GFR (MDRD) 53 Glucose 86 (74-99) mg/dL Calcium 8.3 L (8.5-10.1) mg/dL J[place] Results Last 24 Hours: Microbiology 06/05/20 14:00 Aerobic Blood Culture - Preliminary Blood - Venous - Iv Start Anaerobic Blood Culture - Preliminary 06/05/20 13:45 Urine Culture - Final Urine, Clean Catch Escherichia Coli 06/05/20 15:49 Aerobic Blood Culture - Preliminary Blood - Arm, Right Anaerobic Blood Culture - Preliminary NO GROWTH AFTER 1 DAY Med Orders - Current: Current Medications Acetaminophen (Tylenol) 650 mg PO Q4H PRN PRN Reason: Pain (moderate 4-6) Last Admin: 06/07/20 08:00 Dose: 650 mg Documented by: Aspirin (Aspirin) 81 mg PO DAILY [facility] Last Admin: 06/07/20 09:31 Dose: 81 mg Documented by: Atorvastatin Calcium (Lipitor) 40 mg PO DAILY [facility] Last Admin: 06/07/20 09:30 Dose: 40 mg Documented by: Capsaicin (Zostrix 0.025% Crm) 0 gm TOP QID PRN PRN Reason: Pain Cholecalciferol (Vitamin D3) 25 mcg PO DAILY [facility] Last Admin: 06/07/20 09:30 Dose: 25 mcg Documented by: Enoxaparin Sodium (Lovenox) 40 mg SUBCUT DAILY [facility] Last Admin: 06/07/20 09:37 Dose: 40 mg Documented by: Gabapentin (Neurontin) 300 mg PO BID [facility] Last Admin: 06/07/20 09:32 Dose: 300 mg Documented by: Hydrochlorothiazide (Hydrochlorothiazide) 12.5 mg PO DAILY [facility] Last Admin: 06/07/20 09:30 Dose: 12.5 mg Documented by: Ceftriaxone Sodium 1 gm/ (Sodium Chloride) 50 mls @ 100 mls/hr IV Q24H [facility] Last Infusion: 06/06/20 18:18 Dose: Infused Documented by: Sodium Chloride (Normal Saline) 1,000 mls @ 100 mls/hr IV ASDIRECTED [facility] Last Infusion: 06/06/20 19:51 Dose: Infused Documented by: Losartan Potassium (Cozaar) 25 mg PO DAILY [facility] Last Admin: 06/07/20 09:31 Dose: 25 mg Documented by: Melatonin (Melatonin) 5 mg PO BEDTIME [facility] Non-Formulary Medication (Metaxalone) 800 mg PO ASDIRECTED PRN PRN Reason: Muscle Spasm Zolpidem Tartrate (Ambien) 5 mg PO BEDTIME [facility] Last Admin: 06/06/20 20:22 Dose: 5 mg Documented by: Discontinued Medications Acetaminophen (Tylenol) 650 mg PO NOW ONE Stop: 06/05/20 14:38 Last Admin: 06/05/20 14:43 Dose: 650 mg Documented by: Gabapentin (Neurontin) 150 mg PO BID [facility] Last Admin: 06/06/20 12:59 Dose: Not Given Documented by: Ceftriaxone Sodium 1 gm/ (Sodium Chloride) 50 mls @ 100 mls/hr IV ONETIME ONE Stop: 06/05/20 15:49 Last Infusion: 06/05/20 16:26 Dose: Infused Documented by: Ceftriaxone Sodium 1 gm/ (Sodium Chloride) 50 mls @ 100 mls/hr IV Q24H [facility] Last Admin: 06/05/20 17:50 Dose: Not Given Documented by: Melatonin (Melatonin) 3 mg PO BEDTIME [facility] Last Admin: 06/05/20 21:29 Dose: 3 mg Documented by: - Exam General: Alert, Oriented HEENT: Pupils Equal, Pupils Reactive, EOMI, Mucous Membr. Moist/[place] Neck: Supple Lungs: Clear to Auscultation, Normal Respiratory Effort Cardiovascular: Regular Rate, Regular Rhythm GI/Abdominal Exam: Normal Bowel Sounds, Soft, Non-Tender, No Organomegaly, No Distention, No Abnormal Bruit, No Mass, Pelvis Stable Back Exam: Normal Inspection, Full Range of Motion Extremities: Normal Inspection, Normal Range of Motion, Non-Tender, No Pedal Edema, Normal Capillary Refill Skin: Warm, Dry, Intact Neurological: No New Focal Deficit Psy/Mental Status: Alert, Normal Affect, Normal Mood Sepsis Event Note - Evaluation Sepsis Screening Result: No Definite Risk - Focused Exam Vital Signs: Vital Signs Temp Pulse Resp BP BP Pulse Ox 06/07/20 09:31 151/54 H 06/07/20 08:12 102.3 F H 91 20 151/54 H 98 06/07/20 03:03 99.5 F 89 18 140/52 L 100 06/06/20 23:17 99.3 F 76 22 H 94 L 06/06/20 22:11 100.9 F H - Problem List Review Problem List Initiated/Reviewed/Updated: Yes - My Orders Last 24 Hours: My Active Orders 06/06/20 21:00 Melatonin 5 mg PO BEDTIME 06/07/20 07:19 Blood Culture x2 Reflex Set [OM.PC] Stat 06/07/20 07:35 CULTURE BLOOD [BC] Stat 06/07/20 07:38 CULTURE BLOOD [BC] Stat 06/07/20 09:27 Blood Culture x2 Reflex Set [OM.PC] Stat 06/07/20 09:28 CXR [Chest 2V] [CR] Routine - Plan Plan:: UTI Sepsis Patient with dysuria, frequency, fever, leukopenia. UA show LE and bacteria. Urine culture grew pansensitive E Coli. - Continue on ceftriaxone - Post void bladder scan - Repeat blood cultures and obtain CXR due to continued fever -Pancytopenia Chronic Continue to trend CBC AKIRA Creatinine was elevated at 1.27. now downtrended with IVF. Continue home medications
--- NOTE | 2020-06-07 10:20 | CR ---
PROCEDURE INFORMATION: Exam: XR Chest, 2 Views Exam date and time: 06/07/2020 9:44 AM Age: 69 years old Clinical indication: Other: Sepsis TECHNIQUE: Imaging protocol: XR of the chest Views: 2 views. COMPARISON: CR Chest 1V Frontal 02/24/2020 8:12 PM FINDINGS: Tubes, catheters and devices: Unchanged left cardiac pacer generator and leads. Lungs: Mild bilateral lower lobe atelectasis and volume loss. Pleural spaces: No pleural effusion. Heart/Mediastinum: Normal heart and cardiomediastinal silhouette. Vasculature: Mild aortosclerosis. Normal caliber aorta. Bones/joints: The bones are intact. IMPRESSION: No acute disease. Incidentally noted mild bilateral lower lobe atelectasis and aortosclerosis.
--- NOTE | 2020-06-07 11:26 | PCM.DCSUM1 ---
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 Urinalysis was positive for UTI. Urine culture grew pansensitive E. coli. Patient was started on ceftriaxone. However, patient continued to have fevers up to 103.1. Blood culture came back positive with gram-positive cocci in clusters in both bottles from 06/05/2020. Patient was broadened to include vancomycin. She is to be transferred to [facility] in [place] for further evaluation and care. Patient also had AKIRA with a creatinine that peaked at 1.34 but resolved with IV fluids. Diagnosis: Stroke: No - Discharge Data Discharge Date: 06/07/20 Discharge Disposition: DC/Tfer to Acute Hospital 02 Condition: Good - Referral to Home Health Primary Care Physician: PCP None - Discharge Plan *PRESCRIPTION DRUG MONITORING PROGRAM REVIEWED*: Not Applicable *COPY OF PRESCRIPTION DRUG MONITORING REPORT IN PATIENT MARIXA: Not Applicable Home Medications: Home Meds Calc/D3/Mag/Zn/[place]/Matty/[place] [Calcium 600 MG Plus Vit D] 1 each PO BID 06/08/13 [History] Fish Oil/[place]-3 Fatty Acids [Fish Oil] 1,000 mg PO DAILY 06/08/13 [History] Gabapentin 150 mg PO BID 06/08/13 [History] Multivitamin [Multi-Vitamin Daily] 1 each PO DAILY 06/08/13 [History] Zolpidem [Ambien] 5 mg PO BEDTIME 06/08/13 [History] Aspirin 81 mg PO DAILY 03/06/20 [History] Capsaicin 42.5 gm TP QID PRN 03/06/20 [History] Hypromellose [Pure & Gentle Eye Drops] 1 drop EYEBOTH ASDIRECTED PRN 03/06/20 [History] Lifitegrast [Xiidra] 1 drop EYEBOTH BID 03/06/20 [History] Losartan [Cozaar] 25 mg PO DAILY 03/06/20 [History] Melatonin 3 mg PO BEDTIME 03/06/20 [History] Metaxalone [Metaxall] 800 mg PO ASDIRECTED PRN 03/06/20 [History] Naproxen 500 mg PO Q12H PRN 03/06/20 [History] Ondansetron [Zofran ODT] 4 mg PO Q4H PRN 03/06/20 [History] atorvaSTATin [Lipitor] 40 mg PO DAILY 03/06/20 [History] hydroCHLOROthiazide [Hydrochlorothiazide] 12.5 mg PO DAILY 03/06/20 [History] Forms: ED Department Discharge Referrals: PCP,None [Primary Care Provider] - - Discharge Summary/Plan Comment DC Time >30 min.: Yes - General Info Date of Service: 06/07/20 Admission Dx/Problem (Free Text: Admission Diagnosis/Problem Admission Diagnosis/Problem Urinary tract infection Subjective Update: Patient seen and examined today. Still spiking fevers up to 102.3. - Review of Systems General: Reports: Fever, Fatigue HEENT: Reports: No Symptoms Pulmonary: Reports: No Symptoms Cardiovascular: Reports: No Symptoms Gastrointestinal: Reports: No Symptoms Genitourinary: Reports: Dysuria, Frequency Musculoskeletal: Reports: No Symptoms Skin: Reports: No Symptoms Neurological: Reports: No Symptoms Psychiatric: Reports: No Symptoms - Patient Data Vitals - Most Recent: Last Vital Signs Temp 102.3 F H 06/07/20 08:12 Pulse 91 06/07/20 08:12 Resp 20 06/07/20 08:12 BP 151/54 H 06/07/20 09:31 Pulse Ox 98 06/07/20 08:12 Weight - Most Recent: 155 lb 12.8 oz I&O - Last 24 hours: Intake & Output 06/06/20 06/07/20 06/07/20 22:59 06:59 14:59 Intake Total 1250 660 Output Total 275 525 100 Balance 975 135 -100 Lab Results - Last 24 hrs: Laboratory Results - last 24 hr 06/07/20 06/07/20 Range/Units 05:38 05:38 WBC 3.1 L (5.0-10.0) 10^3/uL RBC 3.21 L (4.2-5.4) 10^6/uL Hgb 10.0 L (12.0-16.0) g/dL Hct 30.0 L (37.0-47.0) % MCV 93.5 (80-100) fL MCH 31.2 (27.0-34.0) pg MCHC 33.3 (33.0-35.0) g/dL Plt Count 64 L (150-450) 10^3/uL Sodium 132 L (136-145) mmol/L Potassium 3.5 (3.5-5.1) mmol/L Chloride 99 (98-107) mmol/L Carbon Dioxide 25 (21-32) mmol/L Anion Gap 11.5 (7-13) mEq/L BUN 23 H (7-18) mg/dL Creatinine 1.03 H (0.55-1.02) mg/dL Est Cr Clr Drug Dosing 43.89 mL/min Estimated GFR (MDRD) 53 Glucose 86 (74-99) mg/dL Calcium 8.3 L (8.5-10.1) mg/dL ANDREI Results - Last 24 hrs: Microbiology 06/05/20 14:00 Aerobic Blood Culture - Preliminary Blood - Venous - Iv Start Anaerobic Blood Culture - Preliminary 06/05/20 13:45 Urine Culture - Final Urine, Clean Catch Escherichia Coli 06/05/20 15:49 Aerobic Blood Culture - Preliminary Blood - Arm, Right Anaerobic Blood Culture - Preliminary NO GROWTH AFTER 1 DAY Med Orders - Current: Current Medications Acetaminophen (Tylenol) 650 mg PO Q4H PRN PRN Reason: Pain (moderate 4-6) Last Admin: 06/07/20 08:00 Dose: 650 mg Documented by: Aspirin (Aspirin) 81 mg PO DAILY [facility] Last Admin: 06/07/20 09:31 Dose: 81 mg Documented by: Atorvastatin Calcium (Lipitor) 40 mg PO DAILY [facility] Last Admin: 06/07/20 09:30 Dose: 40 mg Documented by: Capsaicin (Zostrix 0.025% Crm) 0 gm TOP QID PRN PRN Reason: Pain Cholecalciferol (Vitamin D3) 25 mcg PO DAILY [facility] Last Admin: 06/07/20 09:30 Dose: 25 mcg Documented by: Enoxaparin Sodium (Lovenox) 40 mg SUBCUT DAILY [facility] Last Admin: 06/07/20 09:37 Dose: 40 mg Documented by: Gabapentin (Neurontin) 300 mg PO BID [facility] Last Admin: 06/07/20 09:32 Dose: 300 mg Documented by: Hydrochlorothiazide (Hydrochlorothiazide) 12.5 mg PO DAILY [facility] Last Admin: 06/07/20 09:30 Dose: 12.5 mg Documented by: Ceftriaxone Sodium 1 gm/ (Sodium Chloride) 50 mls @ 100 mls/hr IV Q24H [facility] Last Infusion: 06/06/20 18:18 Dose: Infused Documented by: Sodium Chloride (Normal Saline) 1,000 mls @ 100 mls/hr IV ASDIRECTED [facility] Last Infusion: 06/06/20 19:51 Dose: Infused Documented by: Vancomycin HCl 1 gm/ Sodium (Chloride) 250 mls @ 166.667 mls/hr IV Q24H [facility] Last Admin: 06/07/20 11:07 Dose: 125 mls/hr Documented by: Losartan Potassium (Cozaar) 25 mg PO DAILY [facility] Last Admin: 06/07/20 09:31 Dose: 25 mg Documented by: Melatonin (Melatonin) 5 mg PO BEDTIME [facility] Non-Formulary Medication (Metaxalone) 800 mg PO ASDIRECTED PRN PRN Reason: Muscle Spasm Vancomycin HCl (Pharmacy To Dose - Vancomycin) 1 dose .XX ASDIRECTED [facility] Zolpidem Tartrate (Ambien) 5 mg PO BEDTIME [facility] Last Admin: 06/06/20 20:22 Dose: 5 mg Documented by: Discontinued Medications Acetaminophen (Tylenol) 650 mg PO NOW ONE Stop: 06/05/20 14:38 Last Admin: 06/05/20 14:43 Dose: 650 mg Documented by: Gabapentin (Neurontin) 150 mg PO BID [facility] Last Admin: 06/06/20 12:59 Dose: Not Given Documented by: Ceftriaxone Sodium 1 gm/ (Sodium Chloride) 50 mls @ 100 mls/hr IV ONETIME ONE Stop: 06/05/20 15:49 Last Infusion: 06/05/20 16:26 Dose: Infused Documented by: Ceftriaxone Sodium 1 gm/ (Sodium Chloride) 50 mls @ 100 mls/hr IV Q24H [facility] Last Admin: 06/05/20 17:50 Dose: Not Given Documented by: Melatonin (Melatonin) 3 mg PO BEDTIME [facility] Last Admin: 06/05/20 21:29 Dose: 3 mg Documented by: Potassium Chloride (Klor-Con 10) 40 meq PO ONETIME ONE Stop: 06/07/20 10:06 Last Admin: 06/07/20 11:07 Dose: 40 meq Documented by: - Exam General: Reports: Alert, Oriented HEENT: Reports: Pupils Equal, Pupils Reactive, EOMI, Mucous Membr. Moist/[place] Neck: Reports: Supple Lungs: Reports: Clear to Auscultation, Normal Respiratory Effort Cardiovascular: Reports: Regular Rate, Regular Rhythm GI/Abdominal Exam: Normal Bowel Sounds, Soft, Non-Tender, No Organomegaly, No Distention, No Abnormal Bruit, No Mass, Pelvis Stable Back Exam: Reports: Normal Inspection, Full Range of Motion Extremities: Normal Inspection, Normal Range of Motion, Non-Tender, No Pedal Edema, Normal Capillary Refill Skin: Reports: Warm, Dry, Intact Neurological: Reports: No New Focal Deficit Psy/Mental Status: Reports: Alert, Normal Affect, Normal Mood
== END 2020-06-07 12:00 ==
LOC: DL.ED 15:42 → DL.MS 15:51
PROVIDERS: ADMIT Internal Medicine; ATTEND Internal Medicine
DX: N39.0 Urinary tract infection, site not specified (principal); D61.818 Other pancytopenia; I10 Essential (primary) hypertension; E78.00 Pure hypercholesterolemia, unspecified; E66.9 Obesity, unspecified; I42.9 Cardiomyopathy, unspecified; Z20.822 Contact with and (suspected) exposure to COVID-19; Z88.1 Allergy status to other antibiotic agents; Z79.899 Other long term (current) drug therapy; Z79.82 Long term (current) use of aspirin; Z95.0 Presence of cardiac pacemaker; Z90.49 Acquired absence of other specified parts of digestive tract; Z98.890 Other specified postprocedural states
CPT/HCPCS: 0240U; 36415; 71046; 80048; 80053; 81001; 81003; 83605; 85025; 85027; 86140; 87040; 87077; 87086; 87088; 87186; 96365; 96366; 96367; 96372; 99285; A9270; G0378; J0696; J1650; J3370; J7030; J7050; 99284

== ENCOUNTER 2020-06-17 09:18 | Inpatient (IN) | payer MEDICARE, OTHER ==
[2020-06-17] MEDS ORDERED: Ondansetron 4 MG Tab.DIS PO PRN (13:30)
[2020-06-17] MEDS ORDERED: Acetaminophen 325 MG Tab PO PRN (13:39)
[2020-06-17] MEDS ORDERED: Acetaminophen/HYDROcodone 325-10 MG Tab PO PRN (13:39)
[2020-06-17] MEDS ORDERED: Morphine 2 MG/ML SYRINGE IVPUSH PRN (13:39)
[2020-06-17] MEDS ORDERED: Docusate Sodium 100 MG Cap PO PRN (13:39)
--- NOTE | 2020-06-17 13:52 | PCM.HP ---
H&P History of Present Illness - General Date of Service: 06/17/20 Admit Problem/Dx: Admission Diagnosis/Problem Admission Diagnosis/Problem Weakness 69-year-old lady with a history of coronary artery disease, Sjogren syndrome, biventricular pacemaker, hypertension, liver cirrhosis, prior stroke' She was admitted to send for hospital when presented with sepsis, noted to have bacteremia with Escherichia coli and gram-positive cocci. The patient had her pacemaker removed with complication of pericardial effusion. She was also noted to have right upper extremity DVT. Started on apixaban Transfer to swing bed for physical and occupational therapy, further IV anti biotic therapy. She also noted lower extremity swelling. Source of Information: Patient, Other (records from [facility]) - Related Data Allergies/Adverse Reactions: Allergies Allergy/AdvReac Type Severity Reaction Status Date / Time amoxicillin Allergy unknown Verified 06/17/20 11:18 Home Medications: Home Meds Fish Oil/[place]-3 Fatty Acids [Fish Oil] 1,000 mg PO DAILY 06/08/13 [History] Multivitamin [Multi-Vitamin Daily] 1 each PO DAILY 06/08/13 [History] Zolpidem [Ambien] 5 mg PO BEDTIME 06/08/13 [History] Capsaicin 42.5 gm TP QID PRN 03/06/20 [History] Lifitegrast [Xiidra] 1 drop EYEBOTH BID 03/06/20 [History] Losartan [Cozaar] 25 mg PO DAILY 03/06/20 [History] Melatonin 3 mg PO BEDTIME 03/06/20 [History] Metaxalone [Metaxall] 800 mg PO ASDIRECTED PRN 03/06/20 [History] Ondansetron [Zofran ODT] 4 mg PO Q4H PRN 03/06/20 [History] atorvaSTATin [Lipitor] 40 mg PO DAILY 03/06/20 [History] hydroCHLOROthiazide [Hydrochlorothiazide] 12.5 mg PO DAILY 03/06/20 [History] Apixaban [Eliquis] 5 mg PO BID 06/17/20 [History] Apixaban [Eliquis] 10 mg PO BID 06/17/20 [History] Cholecalciferol (Vitamin D3) [Vitamin D3] 1,000 unit PO DAILY 06/17/20 [History] Gabapentin [Neurontin] 300 mg PO BID 06/17/20 [History] Past Medical History HEENT History: Reports: Impaired Vision Other HEENT History: wears glasses, DID NOT BRING WITH TODAY (03/06/20) Cardiovascular History: Reports: Cardiomyopathy, High Cholesterol, Hypertension, Pacemaker Respiratory History: Reports: SOB Gastrointestinal History: Reports: Chronic Constipation, Irritable Bowel Syndrome Genitourinary History: Reports: UTI, Recurrent PROJECT ASST History: Reports: Musculoskeletal History: Reports: RA Neurological History: Reports: None Psychiatric History: Reports: Anxiety, Depression Endocrine/Metabolic History: Reports: None, Obesity/BMI 30+ Hematologic History: Reports: Anemia, Other (See Below) Other Hematologic History: Neutropenia, thrombocytopenia Immunologic History: Reports: Immunosuppression Other Immunologic History: Lupus Oncologic (Cancer) History: Reports: None Dermatologic History: Reports: None - Infectious Disease History Infectious Disease History: Reports: Chicken Pox, Shingles, Other (See Below) Other Infectious Disease History: MSSA - Past Surgical History HEENT Surgical History: Reports: None Cardiovascular Surgical History: Reports: None Respiratory Surgical History: Reports: None GI Surgical History: Reports: Appendectomy, Cholecystectomy Female Surgical History: Reports: Hysterectomy, Nephrectomy Musculoskeletal Surgical History: Reports: None Oncologic Surgical History: Reports: Other (See Below) Other Oncologic Surgeries/Procedures: bone marrow biopsy Dermatological Surgical History: Reports: None Social & Family History - Family History Family Medical History: No Pertinent Family History - Tobacco Use Tobacco Use Status *Q: Never Tobacco User Second Hand Smoke Exposure: No - Caffeine Use Caffeine Use: Reports: Coffee, Soda, Tea - Recreational Drug Use Recreational Drug Use: No - Living Situation & Occupation Living situation: Reports: , with Spouse Occupation: Retired H&P Review of Systems - Review of Systems: Review Of Systems: See Below General: Reports: Weakness. Denies: Fever Pulmonary: Denies: Shortness of Breath Cardiovascular: Reports: Edema. Denies: Chest Pain Gastrointestinal: Denies: Abdominal Pain Genitourinary: Denies: Dysuria Psychiatric: Denies: Confusion Neurological: Denies: Confusion, Headache, Seizure Exam - Exam Exam: See Below - Vital Signs Weight: 172 lb 9.6 oz - Exam Quality Assessment: No: Supplemental Oxygen General: Alert Neck: Supple Lungs: Clear to Auscultation, Normal Respiratory Effort Cardiovascular: Regular Rate, Regular Rhythm, Systolic Murmur GI/Abdominal Exam: Normal Bowel Sounds, Soft, Non-Tender Extremities: Pedal Edema, Other (right upper extremity edema) - Patient Data Lab Results Last 24 hrs: from referral facility [facility] 17, creatinine 0.9, white blood cell count 2.9, hemoglobin 9.1, platelet count 122 *Q Meaningful Use (ADM) - VTE *Q VTE Anticoagulation Contraindications: Alternative [place] Request PT - Problem List (1) Bacteremia SNOMED Code(s): 2124951 ICD Code: R78.81 - BACTEREMIA Status: Acute Current Visit: Yes (2) Coronary artery disease SNOMED Code(s): 05626378 ICD Code: I25.10 - ATHSCL HEART DISEASE OF [place] CORONARY ARTERY W/O ANG PCTRS Status: Acute Current Visit: Yes (3) Deep vein thrombosis, upper right extremity SNOMED Code(s): 363093574 ICD Code: I82.621 - ACUTE EMBOLISM AND THROMBOSIS OF DEEP VEINS OF R UP EXTREM Status: Acute Current Visit: Yes (4) Edema SNOMED Code(s): 343849223, 279018400 ICD Code: R60.9 - EDEMA, UNSPECIFIED Status: Acute Current Visit: Yes (5) Anemia SNOMED Code(s): 829728267 ICD Code: D64.9 - ANEMIA, UNSPECIFIED Status: Acute Current Visit: No Qualifiers: Anemia type: unspecified type Qualified Code(s): D64.9 - Anemia, unspecified (6) UTI (urinary tract infection) SNOMED Code(s): 35198239 ICD Code: N39.0 - URINARY TRACT INFECTION, SITE NOT SPECIFIED Status: Acute Priority: Medium Current Visit: No Qualifiers: Urinary tract infection type: acute cystitis Hematuria presence: with h ematuria Qualified Code(s): N30.01 - Acute cystitis with hematuria Problem List Initiated/Reviewed/Updated: Yes Orders Last 24hrs: Active Orders 24 hr Category Date Time Status Patient Status [ADT] Routine ADT 06/17/20 13:39 Ordered Antiembolic Devices [RC] PER UNIT ROUTINE Care 06/17/20 13:37 Ordered Oxygen Therapy [RC] PRN Care 06/17/20 13:39 Ordered Up With Assistance [RC] ASDIRECTED Care 06/17/20 13:39 Ordered VTE/DVT Education [RC] PER UNIT ROUTINE Care 06/17/20 13:39 Ordered Vital Signs [RC] Q4H Care 06/17/20 13:39 Ordered Regular Diet [DIET] Diet 06/17/20 Dinner Ordered BASIC METABOLIC PANEL,BMP [CHEM] AM Lab 06/22/20 05:15 Ordered CBC WITH AUTO DIFF [HEME] AM Lab 06/22/20 05:15 Ordered Acetaminophen [TylenoL] Med 06/17/20 13:39 Ordered 650 mg PO Q4H PRN Acetaminophen/HYDROcodone [[place] 325-10 MG] Med 06/17/20 13:39 Ordered 1 tab PO Q4H PRN Apixaban [Eliquis] Med 06/19/20 21:00 Ordered 10 mg PO BID Apixaban [Eliquis] Med 06/17/20 21:00 Ordered 5 mg PO BID Docusate Sodium [Colace] Med 06/17/20 13:39 Ordered 100 mg PO BID PRN Furosemide [Lasix] Med 06/17/20 13:38 Ordered 20 mg PO DAILY Gabapentin [Neurontin] Med 06/17/20 21:00 Ordered 300 mg PO BID Lifitegrast [Xiidra] Med 06/17/20 21:00 Ordered 1 drop EYEBOTH BID Losartan [Cozaar] Med 06/18/20 09:00 Ordered 25 mg PO DAILY Melatonin Med 06/17/20 21:00 Ordered 3 mg PO BEDTIME Morphine Med 06/17/20 13:39 Ordered 1 mg IVPUSH Q2H PRN Multivitamin [Multi-Vitamin Daily] Med 06/18/20 09:00 Ordered 1 each PO DAILY Ondansetron [Zofran ODT] Med 06/17/20 13:30 Ordered 4 mg PO Q4H PRN Potassium Chloride [Klor-Con 10] Med 06/17/20 21:00 Ordered 20 meq PO BEDTIME Sodium Chloride 0.9% [Saline Flush] Med 06/17/20 13:39 Ordered 10 ml FLUSH ASDIRECTED PRN atorvaSTATin [Lipitor] Med 06/18/20 09:00 Ordered 40 mg PO DAILY ceFAZolin 2 GM Premix @ 100 MLS/HR Q8H (50ml) Med 06/17/20 13:15 Ordered ceFAZolin [Ancef 2 GM/50 ML] 50 ml IV Q8H Anticoagulation Contraindications VTE [AST] Per Unit Oth 06/17/20 13:39 Ordered Routine Saline Lock Insert [OM.PC] Routine Oth 06/17/20 13:39 Ordered JORJE Hose [Antiembolic Hose] [OM.PC] Routine Oth 06/17/20 13:37 Ordered Resuscitation Status Routine Resus Stat 06/17/20 13:39 Ordered Medication Orders Acetaminophen (Tylenol) 650 mg PO Q4H PRN PRN Reason: Pain (Mild 1-3)/fever Hydrocodone Bitart/Acetaminophen ([place] 325-10 Mg) 1 tab PO Q4H PRN PRN Reason: Pain (moderate 4-6) Apixaban (Eliquis) 5 mg PO BID MATT Stop: 06/18/20 21:01 Apixaban (Eliquis) 10 mg PO BID MATT Docusate Sodium (Colace) 100 mg PO BID PRN PRN Reason: Constipation Furosemide (Lasix) 20 mg PO DAILY [facility] Gabapentin (Neurontin) 300 mg PO BID [facility] Cefazolin Sodium/Dextrose 2 gm (/ Premix) 50 mls @ 100 mls/hr IV Q8HR [facility] Losartan Potassium (Cozaar) 25 mg PO DAILY [facility] Melatonin (Melatonin) 3 mg PO BEDTIME MATT Morphine Sulfate (Morphine) 1 mg IVPUSH Q2H PRN PRN Reason: Pain (severe 7-10) Non-Formulary Medication (Atorvastatin [Lipitor]) 40 mg PO DAILY [facility] Non-Formulary Medication (Lifitegrast [Xiidra]) 1 drop EYEBOTH BID [facility] Non-Formulary Medication (Multivitamin [Multi-Vitamin Daily]) 1 each PO DAILY [facility] Ondansetron HCl (Zofran Odt) 4 mg PO Q4H PRN PRN Reason: Nausea Potassium Chloride (Klor-Con 10) 20 meq PO BEDTIME [facility] Sodium Chloride (Saline Flush) 10 ml FLUSH ASDIRECTED PRN PRN Reason: Keep Vein Open Assessment/Plan Comment:: 69-year-old lady with a history of coronary artery disease, Sjogren syndrome, prior stroke was admitted to [facility] with sepsis. Likely urinary source with Escherichia coli. The patient's pacemaker lead was removed and replaced. Developed a complication of pericardial effusion, right upper extremity DVT bacteremia, sepsis Normothermic is stable Continue IV antibiotic with cefazolin Right upper extremity DVT Treat with apixaban Stepdown from 10 mg to 5 mg in a few days Right upper extremity swelling, lower extremity swelling Start the patient on Lasix We'll supplement potassium Follow electrolytes Coronary artery disease, hypertension Treat with Lipitor, anticoagulation Continue losartan Follow for need for beta blockers DVT prophylaxis with full dose anticoagulation
[2020-06-17] MEDS: Multivitamins,Therapeutic Tab PO SCH (15:04)
[2020-06-17] MEDS: Furosemide 20 MG Tab PO SCH (15:04)
[2020-06-17] MEDS: atorvaSTATin 20 MG Tab PO SCH (15:04)
[2020-06-17] MEDS: Apixaban 5 MG Tab PO SCH ×2 (15:05→21:36)
[2020-06-17] MEDS: ceFAZolin 2 GM in Premix Bag 1 BAG IV SCH ×2 (15:07→21:47)
[2020-06-17] MEDS: Sodium Chloride 0.9% 10 ML Syringe FLUSH PRN ×2 (15:09→21:46)
[2020-06-17] MEDS: Losartan 25 MG Tab PO SCH (16:04)
[2020-06-17] MEDS: Gabapentin 300 MG Cap PO SCH (21:35)
[2020-06-17] MEDS: Potassium Chloride 10 MEQ Tab.ER PO SCH (21:35)
[2020-06-17] MEDS: Melatonin 3 MG Tab PO SCH (21:36)
[2020-06-18] MEDS: ceFAZolin 2 GM in Premix Bag 1 BAG IV SCH ×3 (05:59→22:43)
[2020-06-18] MEDS: Sodium Chloride 0.9% 10 ML Syringe FLUSH PRN ×5 (05:59→23:22)
[2020-06-18] MEDS: Multivitamins,Therapeutic Tab PO SCH (08:54)
[2020-06-18] MEDS: atorvaSTATin 20 MG Tab PO SCH (08:55)
[2020-06-18] MEDS: Furosemide 20 MG Tab PO SCH (08:56)
[2020-06-18] MEDS: Apixaban 5 MG Tab PO SCH ×2 (08:57→21:31)
[2020-06-18] MEDS: Gabapentin 300 MG Cap PO SCH ×2 (08:58→21:30)
[2020-06-18] MEDS: Losartan 25 MG Tab PO SCH (08:58)
[2020-06-18] MEDS: Melatonin 3 MG Tab PO SCH (21:29)
[2020-06-18] MEDS: Potassium Chloride 10 MEQ Tab.ER PO SCH (21:29)
[2020-06-19] MEDS: ceFAZolin 2 GM in Premix Bag 1 BAG IV SCH ×3 (05:35→21:35)
[2020-06-19] MEDS: atorvaSTATin 20 MG Tab PO SCH (08:46)
[2020-06-19] MEDS: Apixaban 5 MG Tab PO SCH ×2 (08:46→21:05)
[2020-06-19] MEDS: Multivitamins,Therapeutic Tab PO SCH (08:46)
[2020-06-19] MEDS: Gabapentin 300 MG Cap PO SCH ×2 (08:47→21:05)
[2020-06-19] MEDS: Losartan 25 MG Tab PO SCH (08:47)
[2020-06-19] MEDS: Furosemide 20 MG Tab PO SCH (08:47)
[2020-06-19] MEDS: Potassium Chloride 10 MEQ Tab.ER PO SCH (21:04)
[2020-06-19] MEDS: Melatonin 3 MG Tab PO SCH (21:05)
[2020-06-19] MEDS: LIFITEGRAST EYEBOTH SCH ×2 (21:30→22:44)
[2020-06-19] MEDS: Sodium Chloride 0.9% 10 ML Syringe FLUSH PRN (21:35)
[2020-06-20] MEDS: ceFAZolin 2 GM in Premix Bag 1 BAG IV SCH ×3 (06:03→22:39)
[2020-06-20] MEDS: Sodium Chloride 0.9% 10 ML Syringe FLUSH PRN (06:04)
[2020-06-20] MEDS: Furosemide 20 MG Tab PO SCH (08:27)
[2020-06-20] MEDS: Apixaban 5 MG Tab PO SCH ×2 (08:28→21:10)
[2020-06-20] MEDS: Gabapentin 300 MG Cap PO SCH ×2 (08:28→21:10)
[2020-06-20] MEDS: Losartan 25 MG Tab PO SCH (08:28)
[2020-06-20] MEDS: Multivitamins,Therapeutic Tab PO SCH (08:28)
[2020-06-20] MEDS: atorvaSTATin 20 MG Tab PO SCH (08:28)
[2020-06-20] MEDS: LIFITEGRAST EYEBOTH SCH ×2 (08:40→22:44)
[2020-06-20] MEDS ORDERED: Mineral Oil/Petrolatum/Phenylephrine/Shark Liver Oil Oint 57 GM Tube RECTAL PRN (10:44)
[2020-06-20] MEDS: Potassium Chloride 10 MEQ Tab.ER PO SCH (21:10)
[2020-06-20] MEDS: Melatonin 3 MG Tab PO SCH (21:10)
[2020-06-21] MEDS: ceFAZolin 2 GM in Premix Bag 1 BAG IV SCH ×3 (06:35→21:03)
[2020-06-21] MEDS: Multivitamins,Therapeutic Tab PO SCH (08:43)
[2020-06-21] MEDS: atorvaSTATin 20 MG Tab PO SCH (08:43)
[2020-06-21] MEDS: Furosemide 20 MG Tab PO SCH (08:43)
[2020-06-21] MEDS: Gabapentin 300 MG Cap PO SCH ×2 (08:43→21:02)
[2020-06-21] MEDS: Losartan 25 MG Tab PO SCH (08:43)
[2020-06-21] MEDS: LIFITEGRAST EYEBOTH SCH ×2 (08:44→21:09)
[2020-06-21] MEDS: Apixaban 5 MG Tab PO SCH (11:22)
--- NOTE | 2020-06-21 13:38 | PCM.SN.2 ---
- Free Text/Narrative Note: has a history of hemorrhoids and hemorrhoidal bleed Developed small amount of fresh red blood per rectum Started to use Preparation H we'll hold apixaban tonight Lower extremity swelling is still significant but improved Right upper extremity swelling is practically resolved We will increase Lasix Follow electrolytes continue compression stocking
[2020-06-21] MEDS: Potassium Chloride 10 MEQ Tab.ER PO SCH (21:02)
[2020-06-21] MEDS: Melatonin 3 MG Tab PO SCH (21:03)
[2020-06-22] MEDS: ceFAZolin 2 GM in Premix Bag 1 BAG IV SCH ×3 (05:10→22:20)
[2020-06-22 06:53] LABS: ANION GAP 12.6 mEq/L (7-13); CHLORIDE,CL 108 mmol/L (98-107); SODIUM,NA 138 mmol/L (136-145)
[2020-06-22] MEDS: Furosemide 40 MG Tab PO SCH (08:40)
[2020-06-22] MEDS: Losartan 25 MG Tab PO SCH (08:40)
[2020-06-22] MEDS: Multivitamins,Therapeutic Tab PO SCH (08:40)
[2020-06-22] MEDS: Gabapentin 300 MG Cap PO SCH ×2 (08:40→21:26)
[2020-06-22] MEDS: atorvaSTATin 20 MG Tab PO SCH (08:40)
[2020-06-22] MEDS: Apixaban 5 MG Tab PO SCH ×2 (08:41→21:26)
[2020-06-22] MEDS: LIFITEGRAST EYEBOTH SCH ×2 (08:50→21:24)
--- NOTE | 2020-06-22 13:39 | PCM.PN ---
- General Info Date of Service: 06/22/20 Subjective Update: feeling well Has good urine output Lower extremity edema slowly improving Has a history of hemorrhoidal bleed developed fresh red blood per rectum every days ago Small amounts with bowel movements No associated abdominal pain Functional Status: Reports: Pain Controlled, Tolerating Diet - Review of Systems Pulmonary: Denies: Shortness of Breath Cardiovascular: Reports: Edema. Denies: Chest Pain Gastrointestinal: Reports: Hematochezia. Denies: Abdominal Pain Neurological: Denies: Confusion - Patient Data Vitals - Most Recent: Last Vital Signs Temp 98.6 F 06/22/20 08:00 Pulse 61 06/22/20 08:00 Resp 20 06/22/20 08:00 BP 126/62 06/22/20 08:40 Pulse Ox 98 06/22/20 08:00 Weight - Most Recent: 176 lb 6.4 oz I&O - Last 24 Hours: Intake & Output 06/21/20 06/22/20 06/22/20 22:59 06:59 14:59 Intake Total 50 150 370 Output Total 300 Balance 50 -150 370 Lab Results Last 24 Hours: Laboratory Results - last 24 hr 06/22/20 06/22/20 Range/Units 06:15 06:15 WBC 2.3 L (5.0-10.0) 10^3/uL RBC 2.45 L (4.2-5.4) 10^6/uL Hgb 7.6 L (12.0-16.0) g/dL Hct 23.9 L (37.0-47.0) % MCV 97.6 (80-100) fL MCH 31.0 (27.0-34.0) pg MCHC 31.8 L (33.0-35.0) g/dL Plt Count 88 L (150-450) 10^3/uL Neut % (Auto) 45.9 (42.2-75.2) % Lymph % (Auto) 39.7 (20.5-50.1) % Chambers % (Auto) 11.4 H (2-8) % Eos % (Auto) 2.6 (1.0-3.0) % Baso % (Auto) 0.4 (0.0-1.0) % Sodium 138 (136-145) mmol/L Potassium 4.6 (3.5-5.1) mmol/L Chloride 108 H (98-107) mmol/L Carbon Dioxide 22 (21-32) mmol/L Anion Gap 12.6 (7-13) mEq/L BUN 21 H (7-18) mg/dL Creatinine 1.23 H (0.55-1.02) mg/dL Est Cr Clr Drug Dosing 36.23 mL/min Estimated GFR (MDRD) 43 Glucose 85 (74-99) mg/dL Calcium 8.3 L (8.5-10.1) mg/dL AST 33 (15-37) U/L ALT < 6 L (14-59) U/L Med Orders - Current: Current Medications Acetaminophen (Tylenol) 650 mg PO Q4H PRN PRN Reason: Pain (Mild 1-3)/fever Hydrocodone Bitart/Acetaminophen ([place] 325-10 Mg) 1 tab PO Q4H PRN PRN Reason: Pain (moderate 4-6) Apixaban (Eliquis) 5 mg PO BID [facility] Last Admin: 06/22/20 08:41 Dose: 5 mg Documented by: Atorvastatin Calcium (Lipitor) 40 mg PO DAILY [facility] Last Admin: 06/22/20 08:40 Dose: 40 mg Documented by: Docusate Sodium (Colace) 100 mg PO BID PRN PRN Reason: Constipation Furosemide (Lasix) 40 mg PO DAILY [facility] Last Admin: 06/22/20 08:40 Dose: 40 mg Documented by: Gabapentin (Neurontin) 300 mg PO BID [facility] Last Admin: 06/22/20 08:40 Dose: 300 mg Documented by: Cefazolin Sodium/Dextrose 2 gm (/ Premix) 50 mls @ 100 mls/hr IV Q8HR [facility] Last Admin: 06/22/20 05:10 Dose: 100 mls/hr Documented by: Losartan Potassium (Cozaar) 25 mg PO DAILY [facility] Last Admin: 06/22/20 08:40 Dose: 25 mg Documented by: Melatonin (Melatonin) 3 mg PO BEDTIME [facility] Last Admin: 06/21/20 21:03 Dose: 3 mg Documented by: Morphine Sulfate (Morphine) 1 mg IVPUSH Q2H PRN PRN Reason: Pain (severe 7-10) Multivitamins (Thera) 1 each PO DAILY [facility] Last Admin: 06/22/20 08:40 Dose: 1 each Documented by: Multivitamins/Minerals (Vitamins And Minerals) 1 tab PO WITHBREAKFAST [facility] Lifitegrast [Xiidra] (1 Drop Own Med) 1 drop EYEBOTH BID [facility] Last Admin: 06/22/20 08:50 Dose: 1 drop Documented by: Ondansetron HCl (Zofran Odt) 4 mg PO Q4H PRN PRN Reason: Nausea Phenyleph/Shark Oil/Min Oil/Petrol (Preparation H Oint) 0 gm RECTAL TID PRN PRN Reason: hemorrhoid irritation, pain Polysaccharide Iron Complex (Ferrex 150) 150 mg PO DAILY [facility] Potassium Chloride (Klor-Con 10) 20 meq PO BEDTIME [facility] Last Admin: 06/21/20 21:02 Dose: 20 meq Documented by: Sodium Chloride (Saline Flush) 10 ml FLUSH ASDIRECTED PRN PRN Reason: Keep Vein Open Last Admin: 06/20/20 06:04 Dose: 10 ml Documented by: Discontinued Medications Apixaban (Eliquis) 5 mg PO BID [facility] Last Admin: 06/21/20 11:22 Dose: 5 mg Documented by: Apixaban (Eliquis) 10 mg PO BID [facility] Stop: 06/18/20 21:01 Last Admin: 06/18/20 21:31 Dose: 10 mg Documented by: Furosemide (Lasix) 20 mg PO DAILY [facility] Last Admin: 06/21/20 08:43 Dose: 20 mg Documented by: - Exam General: Alert, Oriented Neck: Supple Lungs: Clear to Auscultation, Normal Respiratory Effort Cardiovascular: Regular Rate, Regular Rhythm GI/Abdominal Exam: Normal Bowel Sounds, Soft, Non-Tender Extremities: Pedal Edema Sepsis Event Note - Evaluation Sepsis Screening Result: No Definite Risk - Focused Exam Vital Signs: Vital Signs Temp Pulse Resp BP BP Pulse Ox 06/22/20 08:40 126/62 06/22/20 08:00 98.6 F 61 20 126/62 98 - Problem List & Annotations (1) Bacteremia SNOMED Code(s): 0185340 Code(s): R78.81 - BACTEREMIA Status: Acute Current Visit: Yes (2) Coronary artery disease SNOMED Code(s): 78013936 Code(s): I25.10 - ATHSCL HEART DISEASE OF [place] CORONARY ARTERY W/O ANG PC TRS Status: Acute Current Visit: Yes (3) Deep vein thrombosis, upper right extremity SNOMED Code(s): 890092254 Code(s): I82.621 - ACUTE EMBOLISM AND THROMBOSIS OF DEEP VEINS OF R UP EXTREM Status: Acute Current Visit: Yes (4) Edema SNOMED Code(s): 028685042, 335168594 Code(s): R60.9 - EDEMA, UNSPECIFIED Status: Acute Current Visit: Yes (5) Anemia SNOMED Code(s): 365258742 Code(s): D64.9 - ANEMIA, UNSPECIFIED Status: Acute Current Visit: No Qualifiers: Anemia type: unspecified type Qualified Code(s): D64.9 - Anemia, unspecified (6) UTI (urinary tract infection) SNOMED Code(s): 69903471 Code(s): N39.0 - URINARY TRACT INFECTION, SITE NOT SPECIFIED Status: Acute Priority: Medium Current Visit: No Qualifiers: Urinary tract infection type: acute cystitis Hematuria presence: with hematuria Qualified Code(s): N30.01 - Acute cystitis with hematuria (7) GI bleeding SNOMED Code(s): 63774828 Code(s): K92.2 - GASTROINTESTINAL HEMORRHAGE, UNSPECIFIED Status: Acute C urrent Visit: Yes (8) Bleeding hemorrhoid SNOMED Code(s): 01575166 Code(s): K64.9 - UNSPECIFIED HEMORRHOIDS Status: Acute Current Visit: Yes - Problem List Review Problem List Initiated/Reviewed/Updated: Yes - My Orders Last 24 Hours: My Active Orders 06/22/20 09:00 Apixaban [Eliquis] 5 mg PO BID Furosemide [Lasix] 40 mg PO DAILY 06/22/20 13:45 Iron Polysaccharides Complex [Ferrex 150] 150 mg PO DAILY 06/23/20 08:00 Multivitamins/Minerals [Vitamins and Minerals] 1 tab PO WITHBREAKFAST - Plan Plan:: 69-year-old lady with a history of coronary artery disease, Sjogren syndrome, prior stroke was admitted to [facility] with sepsis. Likely urinary source with Escherichia coli. The patient's pacemaker lead was removed and replaced. Developed a complication of pericardial effusion, right upper extremity DVT bacteremia, sepsis Normothermic is stable Continue IV antibiotic with cefazolin Right upper extremity DVT Treat with apixaban GI bleed secondary to hemorrhoidal bleed Acute blood loss anemia secondary to GI bleed we'll monitor hemoglobin No indication for transfusion now Start iron and multivitamin Try to continue anticoagulation with apixaban while carefully monitoring hemoglobin and GI bleed Right upper extremity swelling, lower extremity swelling Started the patient on Lasix We'll supplement potassium Follow electrolytes Coronary artery disease, hypertension Treat with Lipitor, anticoagulation Continue losartan Follow for need for beta blockers DVT prophylaxis with full dose anticoagulation
[2020-06-22] MEDS: Sodium Chloride 0.9% 10 ML Syringe FLUSH PRN ×3 (14:45→22:19)
[2020-06-22] MEDS: Iron Polysaccharides Complex 150 MG Cap PO SCH (14:45)
[2020-06-22] MEDS: Melatonin 3 MG Tab PO SCH (21:26)
[2020-06-22] MEDS: Potassium Chloride 10 MEQ Tab.ER PO SCH (21:26)
[2020-06-23] MEDS: ceFAZolin 2 GM in Premix Bag 1 BAG IV SCH (06:02)
[2020-06-23] MEDS: Sodium Chloride 0.9% 10 ML Syringe FLUSH PRN ×2 (06:37→21:08)
[2020-06-23] MEDS: Losartan 25 MG Tab PO SCH (08:31)
[2020-06-23] MEDS: Apixaban 5 MG Tab PO SCH ×2 (08:31→20:49)
[2020-06-23] MEDS: Multivitamins,Therapeutic Tab PO SCH (08:31)
[2020-06-23] MEDS: Iron Polysaccharides Complex 150 MG Cap PO SCH (08:32)
[2020-06-23] MEDS: LIFITEGRAST EYEBOTH SCH ×2 (08:33→20:54)
[2020-06-23] MEDS: Gabapentin 300 MG Cap PO SCH ×2 (08:33→20:48)
[2020-06-23] MEDS: Furosemide 40 MG Tab PO SCH (08:33)
[2020-06-23] MEDS: atorvaSTATin 20 MG Tab PO SCH (08:34)
[2020-06-23] MEDS ORDERED: DAPTOmycin 500 MG Vial IV SCH (10:45)
[2020-06-23] MEDS: Multivitamins, Therapeutic with Minerals Tab PO SCH (11:18)
[2020-06-23] MEDS: Melatonin 3 MG Tab PO SCH (20:49)
[2020-06-23] MEDS: Potassium Chloride 10 MEQ Tab.ER PO SCH (20:49)
[2020-06-24 06:43] LABS: ANION GAP 12.5 mEq/L (7-13)
[2020-06-24] MEDS: Furosemide 40 MG Tab PO SCH (08:41)
[2020-06-24] MEDS: Multivitamins, Therapeutic with Minerals Tab PO SCH (08:41)
[2020-06-24] MEDS: Iron Polysaccharides Complex 150 MG Cap PO SCH (08:42)
[2020-06-24] MEDS: Apixaban 5 MG Tab PO SCH ×2 (08:42→21:21)
[2020-06-24] MEDS: Losartan 25 MG Tab PO SCH (08:42)
[2020-06-24] MEDS: Gabapentin 300 MG Cap PO SCH ×2 (08:42→21:21)
[2020-06-24] MEDS: LIFITEGRAST EYEBOTH SCH ×2 (08:44→21:25)
[2020-06-24] MEDS: Sodium Chloride 0.9% 10 ML Syringe FLUSH PRN (11:41)
[2020-06-24] MEDS: Potassium Chloride 10 MEQ Tab.ER PO SCH (21:21)
[2020-06-24] MEDS: Melatonin 3 MG Tab PO SCH (21:21)
[2020-06-25] MEDS: Gabapentin 300 MG Cap PO SCH (08:41)
[2020-06-25] MEDS: Iron Polysaccharides Complex 150 MG Cap PO SCH (08:41)
[2020-06-25] MEDS: Losartan 25 MG Tab PO SCH (08:42)
[2020-06-25] MEDS: Multivitamins, Therapeutic with Minerals Tab PO SCH (08:42)
[2020-06-25] MEDS: Furosemide 40 MG Tab PO SCH (08:42)
[2020-06-25] MEDS: Apixaban 5 MG Tab PO SCH (08:43)
[2020-06-25] MEDS: LIFITEGRAST EYEBOTH SCH (08:44)
--- NOTE | 2020-06-25 11:30 | PCM.DCSUM1 ---
Discharge Summary - Hospital Course Free Text/Narrative:: 69-year-old lady with a history of coronary artery disease, Sjogren syndrome, biventricular pacemaker, hypertension, liver cirrhosis, prior stroke. She was admitted for sepsis, noted to have bacteremia with Escherichia coli and gram- positive cocci. The patient had her pacemaker removed with complication of pericardial effusion. She was also noted to have right upper extremity DVT. Started on apixaban.she was transferred to swing bed for physical and occupational therapy, further IV antibiotic therapy. She is being discharged home to continue with IV antibiotic. Patient reported small amount of blood in her stool yesterday. None this morning. Hemoglobin stable. She will need to follow-up with PCP tomorrow for repeat hemoglobin check at [facility]. She has an appointment with GI on 07/09/2020. Advised to keep appointment. Patient was advised to go to the ED if she continued to have blood in stool, feeling dizzy, shortness of breath or chest pain. Diagnosis: Stroke: No - Discharge Data Discharge Date: 06/25/20 Discharge Disposition: Home, Self-Care 01 Condition: Good - Referral to Home Health Primary Care Physician: Brian Alicea MD - Patient Summary/Data Consults: Consultations 06/17/20 14:23 OT Evaluation and Treatment [CONS] Routine PT Evaluation and Treatment [CONS] Routine - Patient Instructions Diet: Heart Healthy Diet Activity: As Tolerated Driving: May Drive Today Showering/Bathing: May Shower Notify Provider of: Fever, Increased Pain, Swelling and Redness, Nausea and/or Vomiting Other/Special Instructions: Repeat hemoglobin tomorrow at [facility] - Discharge Plan *PRESCRIPTION DRUG MONITORING PROGRAM REVIEWED*: No *COPY OF PRESCRIPTION DRUG MONITORING REPORT IN PATIENT MARIXA: No Prescriptions/Med Rec: DAPTOmycin [Cubicin] 480 mg IV Q24H #14 vial Acetaminophen/HYDROcodone [[place] 325-10 MG] 1 tab PO Q6H PRN #10 tablet PRN Reason: Pain (Moderate 4-6) Home Medications: Home Meds Fish Oil/[place]-3 Fatty Acids [Fish Oil] 1,000 mg PO DAILY 06/08/13 [History] Multivitamin [Multi-Vitamin Daily] 1 each PO DAILY 06/08/13 [History] Zolpidem [Ambien] 5 mg PO BEDTIME 06/08/13 [History] Capsaicin 42.5 gm TP QID PRN 03/06/20 [History] Lifitegrast [Xiidra] 1 drop EYEBOTH BID 03/06/20 [History] Losartan [Cozaar] 25 mg PO DAILY 03/06/20 [History] Melatonin 3 mg PO BEDTIME 03/06/20 [History] Metaxalone [Metaxall] 800 mg PO ASDIRECTED PRN 03/06/20 [History] Ondansetron [Zofran ODT] 4 mg PO Q4H PRN 03/06/20 [History] hydroCHLOROthiazide [Hydrochlorothiazide] 12.5 mg PO DAILY 03/06/20 [History] Apixaban [Eliquis] 5 mg PO BID 06/17/20 [History] Apixaban [Eliquis] 10 mg PO BID 06/17/20 [History] Cholecalciferol (Vitamin D3) [Vitamin D3] 1,000 unit PO DAILY 06/17/20 [History] Gabapentin [Neurontin] 300 mg PO BID 06/17/20 [History] Acetaminophen/HYDROcodone [[place] 325-10 MG] 1 tab PO Q6H PRN #10 tablet 06/25/20 [Rx] DAPTOmycin [Cubicin] 480 mg IV Q24H #14 vial 06/25/20 [Rx] Patient Handouts: Acetaminophen; Hydrocodone tablets or capsules, Edema, [id number], Daptomycin injection, Bacteremia, Adult - Discharge Summary/Plan Comment DC Time >30 min.: Yes - General Info Date of Service: 06/25/20 Admission Dx/Problem (Free Text: Admission Diagnosis/Problem Admission Diagnosis/Problem Weakness Subjective Update: feeling well Functional Status: Reports: Pain Controlled - Review of Systems General: Reports: No Symptoms HEENT: Reports: No Symptoms Pulmonary: Reports: No Symptoms Cardiovascular: Reports: No Symptoms Gastrointestinal: Reports: No Symptoms Genitourinary: Reports: No Symptoms Musculoskeletal: Reports: No Symptoms Skin: Reports: No Symptoms Neurological: Reports: No Symptoms Psychiatric: Reports: No Symptoms - Patient Data Vitals - Most Recent: Last Vital Signs Temp 98.5 F 06/25/20 07:55 Pulse 98 06/25/20 07:55 Resp 20 06/25/20 07:55 BP 155/91 H 06/25/20 08:42 Pulse Ox 97 06/25/20 07:55 Weight - Most Recent: 177 lb I&O - Last 24 hours: Intake & Output 06/24/20 06/25/20 06/25/20 22:59 06:59 14:59 Intake Total 240 Balance 240 Med Orders - Current: Current Medications Acetaminophen (Tylenol) 650 mg PO Q4H PRN PRN Reason: Pain (Mild 1-3)/fever Hydrocodone Bitart/Acetaminophen ([place] 325-10 Mg) 1 tab PO Q4H PRN PRN Reason: Pain (moderate 4-6) Apixaban (Eliquis) 5 mg PO BID [facility] Last Admin: 06/25/20 08:43 Dose: 5 mg Documented by: Docusate Sodium (Colace) 100 mg PO BID PRN PRN Reason: Constipation Furosemide (Lasix) 40 mg PO DAILY [facility] Last Admin: 06/25/20 08:42 Dose: 40 mg Documented by: Gabapentin (Neurontin) 300 mg PO BID [facility] Last Admin: 06/25/20 08:41 Dose: 300 mg Documented by: Daptomycin 480 mg/ Sodium (Chloride) 50 mls @ 100 mls/hr IV Q24H [facility] Last Admin: 06/24/20 11:41 Dose: 100 mls/hr Documented by: Losartan Potassium (Cozaar) 25 mg PO DAILY [facility] Last Admin: 06/25/20 08:42 Dose: 25 mg Documented by: Melatonin (Melatonin) 3 mg PO BEDTIME [facility] Last Admin: 06/24/20 21:21 Dose: 3 mg Documented by: Morphine Sulfate (Morphine) 1 mg IVPUSH Q2H PRN PRN Reason: Pain (severe 7-10) Multivitamins/Minerals (Vitamins And Minerals) 1 tab PO WITHBREAKFAST [facility] Last Admin: 06/25/20 08:42 Dose: 1 tab Documented by: Lifitegrast [Xiidra] (1 Drop Own Med) 1 drop EYEBOTH BID [facility] Last Admin: 06/25/20 08:44 Dose: 1 drop Documented by: Ondansetron HCl (Zofran Odt) 4 mg PO Q4H PRN PRN Reason: Nausea Phenyleph/Shark Oil/Min Oil/Petrol (Preparation H Oint) 0 gm RECTAL TID PRN PRN Reason: hemorrhoid irritation, pain Polysaccharide Iron Complex (Ferrex 150) 150 mg PO DAILY [facility] Last Admin: 06/25/20 08:41 Dose: 150 mg Documented by: Potassium Chloride (Klor-Con 10) 20 meq PO BEDTIME [facility] Last Admin: 06/24/20 21:21 Dose: 20 meq Documented by: Sodium Chloride (Saline Flush) 10 ml FLUSH ASDIRECTED PRN PRN Reason: Keep Vein Open Last Admin: 06/24/20 11:41 Dose: 10 ml Documented by: Discontinued Medications Apixaban (Eliquis) 5 mg PO BID [facility] Last Admin: 06/21/20 11:22 Dose: 5 mg Documented by: Apixaban (Eliquis) 10 mg PO BID [facility] Stop: 06/18/20 21:01 Last Admin: 06/18/20 21:31 Dose: 10 mg Documented by: Atorvastatin Calcium (Lipitor) 40 mg PO DAILY [facility] Last Admin: 06/23/20 08:34 Dose: 40 mg Documented by: Furosemide (Lasix) 20 mg PO DAILY [facility] Last Admin: 06/21/20 08:43 Dose: 20 mg Documented by: Cefazolin Sodium/Dextrose 2 gm (/ Premix) 50 mls @ 100 mls/hr IV Q8HR [facility] Last Infusion: 06/23/20 06:36 Dose: Infused Documented by: Multivitamins (Thera) 1 each PO DAILY [facility] Last Admin: 06/23/20 08:31 Dose: 1 each Documented by: - Exam General: Reports: Alert, Oriented HEENT: Reports: Pupils Equal, Pupils Reactive, EOMI, Mucous Membr. Moist/[place] Neck: Reports: Supple Lungs: Reports: Clear to Auscultation, Normal Respiratory Effort Cardiovascular: Reports: Regular Rate, Regular Rhythm GI/Abdominal Exam: Normal Bowel Sounds, Soft, Non-Tender, No Organomegaly, No Distention, No Abnormal Bruit, No Mass, Pelvis Stable (Female) Exam: Normal External Exam, Normal Speculum Exam, Normal Bimanual Exam Rectal (Female) Exam: Normal Exam, Normal Rectal Tone Back Exam: Reports: Normal Inspection, Full Range of Motion Extremities: Normal Inspection, Normal Range of Motion, Non-Tender, No Pedal Edema, Normal Capillary Refill Skin: Reports: Warm, Dry, Intact Wound/Incisions: Reports: Healing Well Neurological: Reports: No New Focal Deficit Psy/Mental Status: Reports: Alert, Normal Affect, Normal Mood *Q Meaningful Use (DIS) - VTE *Q VTE Anticoagulation Contraindications: Alternative [place] Request PT
== END 2020-06-25 13:45 | disposition home or self-care (01) | DRG 948 ==
LOC: UNDOADMIN 12:28 → DL.MS 12:28
PROVIDERS: ADMIT Internal Medicine; ATTEND Internal Medicine
DX: R53.1 Weakness (principal); D84.9 Immunodeficiency, unspecified; I82.621 Acute embolism and thrombosis of deep veins of right upper extremity; N30.01 Acute cystitis with hematuria; I31.3 Pericardial effusion (noninflammatory); K62.5 Hemorrhage of anus and rectum; I25.10 Atherosclerotic heart disease of native coronary artery without angina pectoris; M35.00 Sjogren syndrome, unspecified; I10 Essential (primary) hypertension; H54.7 Unspecified visual loss; E78.00 Pure hypercholesterolemia, unspecified; K59.09 Other constipation; F41.9 Anxiety disorder, unspecified; F32.9 Major depressive disorder, single episode, unspecified; D69.6 Thrombocytopenia, unspecified; E66.9 Obesity, unspecified; D64.9 Anemia, unspecified; K64.9 Unspecified hemorrhoids; Z95.0 Presence of cardiac pacemaker; Z88.0 Allergy status to penicillin; Z90.49 Acquired absence of other specified parts of digestive tract; Z90.710 Acquired absence of both cervix and uterus; Z86.73 Personal history of transient ischemic attack (TIA), and cerebral infarction without residual deficits; Z28.82 Immunization not carried out because of caregiver refusal
CPT/HCPCS: 36415; 80048; 84450; 84460; 85025; 97110-GO; 97110-GP; 97116-GP; 97162-GP; 97166-GO; 97530-GO; A9270-GY; J0690; J0878

== ENCOUNTER 2020-07-06 03:30 | Emergency (ER) | payer MEDICARE, OTHER ==
--- NOTE | 2020-07-06 03:36 | EDM.PDOC ---
ED HPI GENERAL MEDICAL PROBLEM - General Stated Complaint: [facility] Time Seen by Provider: 07/06/20 04:15 Source of Information: Reports: Patient, Family (), Old Records, RN, RN Notes Reviewed History Limitations: Reports: No Limitations - History of Present Illness INITIAL COMMENTS - FREE TEXT/NARRATIVE: Patient presents to the ED via [facility] with complaints of SOB. The patient reports a history at [facility] for sepsis d/t staph on the leads of her pacemaker; she was discharged three days ago 07/03/20. She states the shortness of breath began two days ago and has progressively worsened in that time. She has not taken any medications for this shortness of breath, but she feels the nebulizer given en route has somewhat improved her work of breathing. She denies fever, sinus pressure, cough, sore throat, chest pain/pressure, palpitations, nausea, vomiting, or diarrhea. She attests to shaking chills. The patient denies a history of COVID infection and has received her first vaccine. She denies tobacco, alcohol, or recreational drug use. The patient reports the provider managing her care since discharge told her she will start on a diuretic following completion of her antibiotics; she has three days left of IV antibiotics. - Related Data Allergies Allergy/AdvReac Type Severity Reaction Status Date / Time amoxicillin Allergy unknown Verified 07/06/20 03:49 Home Meds: Home Meds Fish Oil/[place]-3 Fatty Acids [Fish Oil] 1,000 mg PO DAILY 06/08/13 [History] Multivitamin [Multi-Vitamin Daily] 1 each PO DAILY 06/08/13 [History] Zolpidem [Ambien] 5 mg PO BEDTIME 06/08/13 [History] Capsaicin 42.5 gm TP QID PRN 03/06/20 [History] Lifitegrast [Xiidra] 1 drop EYEBOTH BID 03/06/20 [History] Losartan [Cozaar] 25 mg PO DAILY 03/06/20 [History] Melatonin 3 mg PO BEDTIME 03/06/20 [History] Metaxalone [Metaxall] 800 mg PO ASDIRECTED PRN 03/06/20 [History] Ondansetron [Zofran ODT] 4 mg PO Q4H PRN 03/06/20 [History] hydroCHLOROthiazide [Hydrochlorothiazide] 12.5 mg PO DAILY 03/06/20 [History] Cholecalciferol (Vitamin D3) [Vitamin D3] 1,000 unit PO DAILY 06/17/20 [History] Gabapentin [Neurontin] 300 mg PO BID 06/17/20 [History] Acetaminophen/HYDROcodone [[place] 325-10 MG] 1 tab PO Q6H PRN #10 tablet 06/25/20 [Rx] DAPTOmycin [Cubicin Rf] 480 mg IV DAILY 07/06/20 [History] Past Medical History HEENT History: Reports: Impaired Vision Other HEENT History: wears glasses, DID NOT BRING WITH TODAY (03/06/20) Cardiovascular History: Reports: Cardiomyopathy, High Cholesterol, Hypertension, Pacemaker Respiratory History: Reports: SOB Gastrointestinal History: Reports: Chronic Constipation, Irritable Bowel Syndrome Genitourinary History: Reports: UTI, 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: Musculoskeletal History: Reports: RA Neurological History: Reports: None Psychiatric History: Reports: Anxiety, Depression Endocrine/Metabolic History: Reports: Obesity/BMI 30+ Hematologic History: Reports: Anemia, Other (See Below) Other Hematologic History: Neutropenia, thrombocytopenia Immunologic History: Reports: Immunosuppression Other Immunologic History: Lupus Oncologic (Cancer) History: Reports: None Dermatologic History: Reports: None - Infectious Disease History Infectious Disease History: Reports: Chicken Pox, Shingles, Other (See Below) Other Infectious Disease History: MSSA - Past Surgical History HEENT Surgical History: Reports: None Cardiovascular Surgical History: Reports: None Respiratory Surgical History: Reports: None GI Surgical History: Reports: Appendectomy, Cholecystectomy Female Surgical History: Reports: Hysterectomy, Nephrectomy Musculoskeletal Surgical History: Reports: None Oncologic Surgical History: Reports: Other (See Below) Other Oncologic Surgeries/Procedures: bone marrow biopsy Dermatological Surgical History: Reports: None Social & Family History - Family History Family Medical History: No Pertinent Family History - Caffeine Use Caffeine Use: Reports: Coffee - Living Situation & Occupation Living situation: Reports: , with Spouse Occupation: Retired ED ROS GENERAL - Review of Systems Review Of Systems: Comprehensive ROS is negative, except as noted in HPI. ED EXAM, GENERAL - Physical Exam Exam: See Below Exam Limited By: No Limitations General Appearance: Alert, Moderate Distress (SOB), Thin Eye Exam: Bilateral Eye: EOMI, Normal Inspection, PERRL (3mm) Throat/Mouth: Normal Voice, No Airway Compromise. No: Normal Oropharynx (Dry mucous membranes) Head: Atraumatic, Normocephalic Neck: Normal Inspection, Supple, Non-Tender, Full Range of Motion. No: Lymphadenopathy (L), Lymphadenopathy (R) Respiratory/Chest: Respiratory Distress, Crackles (To bilateral lower lobes), Accessory Muscle Use. No: Chest Non-Tender (Chest pressure), Rhonchi, Wheezing, Stridor, Pleural Rub Cardiovascular: Normal Peripheral Pulses, Regular Rate, Rhythm, No Gallop, No JVD, No Murmur, No Rub Peripheral Pulses: 2+: Radial (L), Radial (R), Dorsalis Pedis (L), Dorsalis Pedis (R) GI/Abdominal: Normal Bowel Sounds, Soft, Non-Tender, No Organomegaly, No Distention, No Abnormal Bruit, No Mass (Female) Exam: Deferred Rectal (Female) Exam: Deferred Back Exam: Normal Inspection, Full Range of Motion Extremities: Normal Range of Motion, Non-Tender, Normal Capillary Refill, Pedal Edema (+3 pitting, bilaterally) Neurological: Alert, Oriented, CN II-XII Intact, Normal Cognition, No Motor/Sensory Deficits Psychiatric: Normal Affect, Normal Mood Skin Exam: Warm, Dry, Intact, Normal Color, No Rash. No: Ecchymosis, Erythema, Jaundice, Mottled, Pallor, Petechiae Course - Vital Signs Last Recorded V/S: Last Vital Signs Temp 99.8 F 07/06/20 03:50 Pulse 110 H 07/06/20 03:50 Resp 32 H 07/06/20 03:50 BP 179/90 H 07/06/20 03:50 Pulse Ox 100 07/06/20 03:50 - Orders/Labs/Meds Orders: Active Orders 24 hr Category Date Time Status Maria Catheter Insertion [Insert Urinary Catheter] [OM. Care 07/06/20 05:15 Ordered PC] Q24H Chest 1V Frontal [CR] Urgent Exams 07/06/20 03:40 Taken Heparin Sodium/0.45% NaCl [Heparin 25,000 Units in 1/2 Med 07/06/20 05:45 Active NS 500 ML] 25,000 units in 500 ml IV TITRATE Medication Orders Heparin Sodium/Sodium Chloride (Heparin 25,000 Units In / Ns 500 Ml) 25,000 units in 500 mls @ 19.16 mls/hr IV TITRATE MATT; Protocol Last Admin: 07/06/20 05:43 Dose: 12 units/kg/hr, 19.16 mls/hr Documented by: VALERIE Cosigned by: HARRY Labs: Laboratory Tests 07/06/20 07/06/20 07/06/20 Range/Units 03:47 03:47 03:47 WBC 5.4 (5.0-10.0) 10^3/uL RBC 2.69 L (4.2-5.4) 10^6/uL Hgb 8.3 L D (12.0-16.0) g/dL Hct 25.5 L (37.0-47.0) % MCV 94.8 D (80-100) fL MCH 30.9 (27.0-34.0) pg MCHC 32.5 L (33.0-35.0) g/dL Plt Count 100 L (150-450) 10^3/uL Neut % (Auto) 70.5 (42.2-75.2) % Lymph % (Auto) 20.1 L (20.5-50.1) % [place] % (Auto) 9.0 H (2-8) % Eos % (Auto) 0.2 L (1.0-3.0) % Baso % (Auto) 0.2 (0.0-1.0) % PT 12.5 H (9.0-12.0) SEC INR 1.3 H (0.9-1.2) APTT 30.1 (22.0-34.0) SEC Sodium 136 (136-145) mmol/L Potassium 4.0 (3.5-5.1) mmol/L Chloride 105 (98-107) mmol/L Carbon Dioxide 20 L (21-32) mmol/L Anion Gap 15.0 H (7-13) mEq/L BUN 25 H (7-18) mg/dL Creatinine 1.44 H (0.55-1.02) mg/dL Est Cr Clr Drug Dosing TNP Estimated GFR (MDRD) 36 BUN/Creatinine Ratio 17.4 (No establ ref range) Glucose 99 (74-99) mg/dL Calcium 8.6 (8.5-10.1) mg/dL Total Bilirubin 1.2 H (0.2-1.0) mg/dL AST 78 H (15-37) U/L ALT 18 (14-59) U/L Alkaline Phosphatase 112 (46-116) U/L Troponin I (0.000-0.056) ng/mL B-Natriuretic Peptide (0-100) pg/ml Total Protein 7.2 (6.4-8.2) g/dL Albumin 2.0 L (3.4-5.0) g/dL Globulin 5.2 Albumin/Globulin Ratio 0.38 03// Range/Units 03:47 WBC (5.0-10.0) 10^3/uL RBC (4.2-5.4) 10^6/uL Hgb (12.0-16.0) g/dL Hct (37.0-47.0) % MCV (80-100) fL MCH (27.0-34.0) pg MCHC (33.0-35.0) g/dL Plt Count (150-450) 10^3/uL Neut % (Auto) (42.2-75.2) % Lymph % (Auto) (20.5-50.1) % [place] % (Auto) (2-8) % Eos % (Auto) (1.0-3.0) % Baso % (Auto) (0.0-1.0) % PT (9.0-12.0) SEC INR (0.9-1.2) APTT (22.0-34.0) SEC Sodium (136-145) mmol/L Potassium (3.5-5.1) mmol/L Chloride (98-107) mmol/L Carbon Dioxide (21-32) mmol/L Anion Gap (7-13) mEq/L BUN (7-18) mg/dL Creatinine (0.55-1.02) mg/dL Est Cr Clr Drug Dosing Estimated GFR (MDRD) BUN/Creatinine Ratio (No establ ref range) Glucose (74-99) mg/dL Calcium (8.5-10.1) mg/dL Total Bilirubin (0.2-1.0) mg/dL AST (15-37) U/L ALT (14-59) U/L Alkaline Phosphatase (46-116) U/L Troponin I 0.106 H* (0.000-0.056) ng/mL B-Natriuretic Peptide 826 H (0-100) pg/ml Total Protein (6.4-8.2) g/dL Albumin (3.4-5.0) g/dL Globulin Albumin/Globulin Ratio Meds: Medications Generic Name Dose Route Start Last Admin Trade Name Freq PRN Reason Stop Dose Admin Heparin Sodium/Sodium Chloride 25,000 units in 500 mls @ 19.16 mls/hr 07/06/20 05:45 07/06/20 05:43 Heparin 25,000 Units In 1/2 Ns 500 Ml IV 12 units/kg/hr TITRATE MATT 19.16 mls/hr Administration Protocol 12 UNITS/KG/HR Discontinued Medications Generic Name Dose Route Start Last Admin Trade Name Freq PRN Reason Stop Dose Admin Aspirin 324 mg 07/06/20 05:28 07/06/20 05:43 Aspirin PO 07/06/20 05:29 324 mg ONETIME ONE Administration Furosemide 20 mg 07/06/20 04:56 07/06/20 05:05 Lasix IVPUSH 07/06/20 04:57 20 mg ONETIME ONE Administration Heparin Sodium (Porcine) 4,000 units 07/06/20 05:27 07/06/20 05:43 Heparin Sodium IVPUSH 07/06/20 05:28 4,000 units .BOLUS ONE Administration Pantoprazole Sodium 40 mg 07/06/20 05:29 07/06/20 05:43 Protonix Iv IVPUSH 07/06/20 05:30 40 mg ONETIME ONE Administration - Radiology Interpretation Free Text/Narrative:: [facility] Final Radiology Report Call: [phone] assistance Online chat: [email or web address] Name: LUIS MANUEL MANDEL Age: 70Years F Date: 07/06/2020 SSN: -- : [id number] Study: CR CHEST 1V FRONTAL Requesting Physician: TIKA BAI Images: 1 Addl Studies: Provided Clinical History: Contrast: Contrast Medium: Contrast Amount: Contrast Method: CONFIDENTIALITY STATEMENT This report is intended only for use by the referring physician, and only in accordance with law. If you received this in error, call [phone]. Page 1 of 1 PROCEDURE INFORMATION: Exam: XR Chest Exam date and time: 07/06/2020 4:01 AM Age: 70 years old Clinical indication: Shortness of breath TECHNIQUE: Imaging protocol: XR of the chest Views: 1 view. COMPARISON: CT Chest wo Cont, Chest wo Cont 06/29/2020 6:49 PM FINDINGS: Lungs: Pulmonary venous congestive changes. Pleural spaces: Unremarkable. No pleural effusion. No pneumothorax. Heart/Mediastinum: Mild cardiomegaly. Bones/joints: Unremarkable. IMPRESSION: Cardiomegaly with mild pulmonary venous congestive changes noted Thank you for allowing us to participate in the care of your patient. Dictated and Authenticated by: Kyler Donnelly MD 07/06/2020 4:45 AM Central Time ([place] & [place]) - Re-Assessments/Exams Free Text/Narrative Re-Assessment/Exam: 07/06/20 Patient notes improvement in work of breathing on 2L of O2 via NC CXR remarkable for mild pulmonary venous congestion and cardiomegaly. CBC remarkable for persistent anemia; Hgb 8.3 Hct 25.5 with Platelet of 100 BNP elevated at 829, no history of CHF. Troponin elevated at 0.106. EKG shows v- paced rhythm in the 60s. Creatinine slightly elevated at 1.44 with GFR 36, BUN 22. Given physical exam and CXR elevation in troponin could be due to fluid overload, but will consult with [facility]. Lab work, examination, and imaging discussed with patient and her who both verbalized understanding and agreement with transfer to [place]. Case discussed with Dr. Browne who kindly accepted patient for transfer. Discussed likelihood of troponin elevation d/t new onset CHF, but will treat for r/o NSTEMI with ASA 324mg as well as Heparin gtt with bolus at the request of Dr. Browne. Dr. Browne also requested Protonix 40mg IVP given patient's recent GI bleed. Patient updated on plan of care. Departure - Departure Time of Disposition: 06:48 Disposition: DC/Tfer to Acute Hospital 02 Condition: Good Clinical Impression: Elevated troponin I level, Elevated brain natriuretic peptide (BNP) level, Normocytic hypochromic anemia, Pulmonary venous congestion, History of pancytopenia, Paced cardiac rhythm - Discharge Information Forms: Interfacility Transfer [facility] Sepsis Event Note (ED) - Focused Exam Vital Signs: Vital Signs Temp Pulse Resp BP Pulse Ox 07/06/20 03:50 99.8 F 110 H 32 H 179/90 H 100 - My Orders Last 24 Hours: My Active Orders 07/06/20 03:40 Chest 1V Frontal [CR] Urgent 07/06/20 05:15 Maria Catheter Insertion [Insert Urinary Catheter] [OM.PC] Q24H 07/06/20 05:45 Heparin Sodium/0.45% NaCl [Heparin 25,000 Units in 1/2 NS 500 ML] 25,000 units in 500 ml IV TITRATE - Assessment/Plan Last 24 Hours: My Active Orders 07/06/20 03:40 Chest 1V Frontal [CR] Urgent 07/06/20 05:15 Maria Catheter Insertion [Insert Urinary Catheter] [OM.PC] Q24H 07/06/20 05:45 Heparin Sodium/0.45% NaCl [Heparin 25,000 Units in 1/2 NS 500 ML] 25,000 units in 500 ml IV TITRATE
[2020-07-06 04:12] LABS: CHLORIDE,CL 105 mmol/L (98-107); SODIUM,NA 136 mmol/L (136-145)
[2020-07-06 04:21] LABS: PTT,PARTIAL THROMBOPLSTIN TIME 30.1 SEC (22.0-34.0)
[2020-07-06] MEDS ORDERED: Furosemide 20 MG/2 ML VIAL IVPUSH ONE (04:56)
[2020-07-06] MEDS ORDERED: Heparin Sodium 5,000 Units/ML Vial IVPUSH ONE (05:27)
[2020-07-06] MEDS ORDERED: Aspirin 81 MG Tab.Chew PO ONE (05:28)
[2020-07-06] MEDS ORDERED: Pantoprazole 40 MG Vial IVPUSH ONE (05:29)
[2020-07-06] MEDS ORDERED: Heparin Sodium/0.45% NaCl 25,000 UNITS/500 ML BAG IV SCH ×2 (05:30→05:45)
--- NOTE | 2020-07-07 08:07 | CR ---
PROCEDURE INFORMATION: Exam: XR Chest Exam date and time: 07/06/2020 4:01 AM Age: 70 years old Clinical indication: Shortness of breath TECHNIQUE: Imaging protocol: XR of the chest Views: 1 view. COMPARISON: CT Chest wo Cont, Chest wo Cont 06/29/2020 6:49 PM FINDINGS: Lungs: Pulmonary venous congestive changes. Pleural spaces: Unremarkable. No pleural effusion. No pneumothorax. Heart/Mediastinum: Mild cardiomegaly. Bones/joints: Unremarkable. IMPRESSION: Cardiomegaly with mild pulmonary venous congestive changes noted
== END 2020-07-06 06:40 ==
LOC: DL.ED 03:30
DX: D50.9 Iron deficiency anemia, unspecified (principal); R79.89 Other specified abnormal findings of blood chemistry; R09.89 Other specified symptoms and signs involving the circulatory and respiratory systems; I10 Essential (primary) hypertension; I49.9 Cardiac arrhythmia, unspecified; E66.9 Obesity, unspecified; Z68.30 Body mass index [BMI] 30.0-30.9, adult; Z88.0 Allergy status to penicillin; Z79.899 Other long term (current) drug therapy
CPT/HCPCS: 36415; 51702; 71045; 80053; 83880; 84484; 85025; 85610; 85730; 93005; 96365; 96375; 99284; 99285; A9270; C9113; J1644; J1940

== ENCOUNTER 2021-01-30 11:14 | Emergency (ER) | payer MEDICARE, OTHER ==
--- NOTE | 2021-01-30 13:31 | EDM.PDOC ---
ED HPI GENERAL MEDICAL PROBLEM - General Chief Complaint: ENT Problem Stated Complaint: [id number] THINKS HAS COVID NO TASTE/SMELL [id number] Time Seen by Provider: 01/30/21 12:50 Source of Information: Reports: Patient, RN, RN Notes Reviewed History Limitations: Reports: No Limitations - History of Present Illness INITIAL COMMENTS - FREE TEXT/NARRATIVE: Patient is a 70-year-old female who presents to ER with complaint of mild cough, and loss of taste and smell. She states she is wondering if she has Covid, as her brother tested positive. Patient states that she does also have Sjogren's syndrome which may attribute to the loss of taste and smell. Patient denies shortness of breath or chest pains at this time, denies nausea, vomiting, diarrhea, fever or chills. Onset: Gradual - Related Data Allergies Allergy/AdvReac Type Severity Reaction Status Date / Time amoxicillin Allergy Rash Verified 01/30/21 12:43 Home Meds: Home Meds Fish Oil/Kimberly-3 Fatty Acids [Fish Oil] 1,000 mg PO DAILY 06/08/13 [History] Multivitamin [Multi-Vitamin Daily] 1 each PO DAILY 06/08/13 [History] Zolpidem [Ambien] 5 mg PO BEDTIME 06/08/13 [History] Capsaicin 42.5 gm TP QID PRN 03/06/20 [History] Lifitegrast [Xiidra] 1 drop EYEBOTH BID 03/06/20 [History] Losartan [Cozaar] 25 mg PO DAILY 03/06/20 [History] Melatonin 3 mg PO BEDTIME 03/06/20 [History] Metaxalone [Metaxall] 800 mg PO ASDIRECTED PRN 03/06/20 [History] Ondansetron [Zofran ODT] 4 mg PO Q4H PRN 03/06/20 [History] hydroCHLOROthiazide [Hydrochlorothiazide] 12.5 mg PO DAILY 03/06/20 [History] Cholecalciferol (Vitamin D3) [Vitamin D3] 1,000 unit PO DAILY 06/17/20 [History] Gabapentin [Neurontin] 300 mg PO BID 06/17/20 [History] Acetaminophen/HYDROcodone [Felt 325-10 MG] 1 tab PO Q6H PRN #10 tablet 06/25/20 [Rx] DAPTOmycin [Cubicin Rf] 480 mg IV DAILY 07/06/20 [History] Past Medical History HEENT History: Reports: Impaired Vision Other HEENT History: wears glasses Cardiovascular History: Reports: Cardiomyopathy, High Cholesterol, Hypertension, Pacemaker Respiratory History: Reports: SOB Gastrointestinal History: Reports: Chronic Constipation, Irritable Bowel Syndrome Genitourinary History: Reports: UTI, Recurrent [employer] History: Reports: Musculoskeletal History: Reports: RA Neurological History: Reports: None Psychiatric History: Reports: Anxiety, Depression Endocrine/Metabolic History: Reports: Obesity/BMI 30+ Hematologic History: Reports: Anemia, Other (See Below) Other Hematologic History: Neutropenia, thrombocytopenia Immunologic History: Reports: Immunosuppression Other Immunologic History: Lupus Oncologic (Cancer) History: Reports: None Dermatologic History: Reports: None - Infectious Disease History Infectious Disease History: Reports: Chicken Pox, Shingles, Other (See Below) Other Infectious Disease History: MSSA - Past Surgical History HEENT Surgical History: Reports: None Cardiovascular Surgical History: Reports: None Respiratory Surgical History: Reports: None GI Surgical History: Reports: Appendectomy, Cholecystectomy Female Surgical History: Reports: Hysterectomy, Nephrectomy Musculoskeletal Surgical History: Reports: None Oncologic Surgical History: Reports: Other (See Below) Other Oncologic Surgeries/Procedures: bone marrow biopsy Dermatological Surgical History: Reports: None Social & Family History - Family History Family Medical History: No Pertinent Family History - Tobacco Use Tobacco Use Status *Q: Never Tobacco User - Caffeine Use Caffeine Use: Reports: Coffee - Recreational Drug Use Recreational Drug Use: No - Living Situation & Occupation Living situation: Reports: , with Spouse Occupation: Retired ED ROS GENERAL - Review of Systems Review Of Systems: Comprehensive ROS is negative, except as noted in HPI. ED EXAM, GENERAL - Physical Exam Exam: See Below Exam Limited By: No Limitations General Appearance: Alert, WD/WN, No Apparent Distress Eye Exam: Bilateral Eye: EOMI, Normal Inspection Ears: Normal External Exam, Hearing Grossly Normal Nose: Normal Inspection Throat/Mouth: Normal Inspection, Normal Voice, No Airway Compromise Head: Atraumatic, Normocephalic Neck: Normal Inspection, Supple, Non-Tender, Full Range of Motion Respiratory/Chest: No Respiratory Distress, Lungs Clear, Normal Breath Sounds, No Accessory Muscle Use, Chest Non-Tender Cardiovascular: Normal Peripheral Pulses, Regular Rate, Rhythm, No Edema, No Gallop, No JVD, No Murmur, No Rub Peripheral Pulses: 2+: Radial (L), Radial (R) GI/Abdominal: Normal Bowel Sounds, Soft, Non-Tender (Female) Exam: Deferred Rectal (Female) Exam: Deferred Back Exam: Normal Inspection, Full Range of Motion, NT Extremities: Normal Inspection, Normal Range of Motion, Non-Tender, Normal Capillary Refill, No Pedal Edema Neurological: Alert, Oriented, CN II-XII Intact, Normal Cognition, Normal Gait, Normal Reflexes, No Motor/Sensory Deficits Psychiatric: Normal Affect, Normal Mood Skin Exam: Warm, Dry, Intact, Normal Color, No Rash Lymphatic: No Adenopathy Course - Vital Signs Last Recorded V/S: Last Vital Signs Temp 98.4 F 01/30/21 11:35 Pulse 84 01/30/21 11:35 Resp 16 01/30/21 11:35 BP 134/72 01/30/21 11:35 Pulse Ox 98 01/30/21 11:35 - Orders/Labs/Meds Labs: Laboratory Tests 01/30/21 Range/Units 11:40 SARS-CoV-2 RNA (LILIANA) Positive H (NEGATIVE) Departure - Departure Time of Disposition: 13:29 Disposition: Home, Self-Care 01 Condition: Good Clinical Impression: COVID-19 - Discharge Information *PRESCRIPTION DRUG MONITORING PROGRAM REVIEWED*: No *COPY OF PRESCRIPTION DRUG MONITORING REPORT IN PATIENT MARIXA: No Instructions: What You Should Know About COVID-19 to Protect Yourself and Others - [facility] [place], 10 Things You Can Do to Manage Your COVID-19 Symptoms at Home - [facility] [place] (11/20/2020), COVID-19: Quarantine vs. Isolation - [facility] [place] (04/23/2020), COVID- 19: What to Do If You Are Sick- [facility] [place] (07/22/2020) Forms: ED Department Discharge Additional Instructions: Call [facility] on Monday morning Return to the ER with any worsening of symptoms Isolate/Quarantine until further notice from [facility] Sepsis Event Note (ED) - Focused Exam Vital Signs: Vital Signs Temp Pulse Resp BP Pulse Ox 01/30/21 11:35 98.4 F 84 16 134/72 98
== END 2021-01-30 13:56 | disposition home or self-care (01) ==
LOC: DL.ED 11:14
DX: U07.1 COVID-19 (principal); I10 Essential (primary) hypertension; M06.9 Rheumatoid arthritis, unspecified; E66.9 Obesity, unspecified; Z88.0 Allergy status to penicillin; Z79.899 Other long term (current) drug therapy
CPT/HCPCS: 99283; U0002

== ENCOUNTER 2021-03-13 09:10 | Emergency (ER) | payer MEDICARE, OTHER ==
[~2021-03-13 09:10] MED LIST changes: -Acetaminophen 325 MG Tab PO ONE; +Cefepime 2 GM in Sodium Chloride 0.9% 50 ML IV ONE; +DEXTROSE 5% IV ONE; +Sodium Chloride 0.9% 1,000 ML IV ONE; +Sodium Chloride 0.9% 10 ML Syringe FLUSH PRN; +VANCOMYCIN IV ONE; +WATER IV ONE; -cefTRIAXone 1 GM in Sodium Chloride 0.9% 50 ML IV ONE
--- NOTE | 2021-03-13 09:10 | EDM.PDOC ---
"<Michell Rubin - Last Filed: 03/13/21 12:18> ED HPI GENERAL MEDICAL PROBLEM - General Chief Complaint: Fever Stated Complaint: AMBULANCE Time Seen by Provider: 03/13/21 08:45 Source of Information: Reports: Patient History Limitations: Reports: No Limitations - History of Present Illness INITIAL COMMENTS - FREE TEXT/NARRATIVE: The patient reports onset of symptoms 1 weeks ago including cough, sore throat, subjective fever and fatigue. She reports this morning she awoke and fell by her bed due to generalized weakness. She denies LOC. She denies focal weakness, slurred speech, facial droop, hearing or vision changes. She reports she hit the back of her head and reports a mild headache. She denies SOB or chest pain. She reports her cough is productive of white sputum. She reports she had COVID-19 approx. 1 month ago. She denies contact with sick persons recently. She reports subjective fevers and chills. She denies nausea or vomiting, abdominal pain, diarrhea or constipation. She denies dysuria, frequency or urgency. She No rashes or myalgias. She reports a history of anemia for which she received her last blood transfusion in 07/2020. She denies hematuria, hematochezia, or melena. She denies other concerns at this time. Headache Pain Score (Numeric/FACES): 3 - Related Data Allergies Allergy/AdvReac Type Severity Reaction Status Date / Time amoxicillin Allergy Rash Verified 02/02/21 10:33 sulfamethoxazole Allergy Cannot Verified 02/02/21 10:33 [From Bactrim] Remember trimethoprim [From Bactrim] Allergy Cannot Verified 02/02/21 10:33 Remember Home Meds: Home Meds Fish Oil/[place]-3 Fatty Acids [Fish Oil] 1,000 mg PO DAILY 06/08/13 [History] Multivitamin [Multi-Vitamin Daily] 1 each PO DAILY 06/08/13 [History] Zolpidem [Ambien] 5 mg PO BEDTIME 06/08/13 [History] Capsaicin 42.5 gm TP QID PRN 03/06/20 [History] Lifitegrast [Xiidra] 1 drop EYEBOTH BID 03/06/20 [History] Losartan [Cozaar] 25 mg PO DAILY 03/06/20 [History] Melatonin 3 mg PO BEDTIME 03/06/20 [History] Ondansetron [Zofran ODT] 4 mg PO Q4H PRN 03/06/20 [History] Cholecalciferol (Vitamin D3) [Vitamin D3] 1,000 unit PO DAILY 06/17/20 [History] Gabapentin [Neurontin] 300 mg PO BID 06/17/20 [History] Aspirin 81 mg PO DAILY 02/02/21 [History] Ferrous Sulfate 325 mg PO BID 02/02/21 [History] Magnesium Oxide 400 mg PO DAILY 02/02/21 [History] Potassium Chloride 20 meq PO DAILY 02/02/21 [History] Past Medical History HEENT History: Reports: Allergic Rhinitis, Impaired Vision Other HEENT History: wears glasses. DRY EYES Cardiovascular History: Reports: Cardiomyopathy, High Cholesterol, Hypertension, Pacemaker, SOB on Exertion Respiratory History: Reports: SOB Gastrointestinal History: Reports: Chronic Constipation, Irritable Bowel Syndrome, Other (See Below) Other Gastrointestinal History: SOME KIND OF LIVER DISEASE Genitourinary History: Reports: Chronic Renal Insuffiency, UTI, Recurrent, Other (See Below) Other Genitourinary History: Stage 3 kidney disease [employer]ING [employer] History: Reports: Musculoskeletal History: Reports: RA, Other (See Below) Other Musculoskeletal History: Fibromyositis Neurological History: Reports: None Psychiatric History: Reports: Anxiety, Depression Endocrine/Metabolic History: Reports: None Hematologic History: Reports: Anemia, Other (See Below) Other Hematologic History: Neutropenia, thrombocytopenia, pancytopenia Immunologic History: Reports: Immunosuppression Other Immunologic History: Lupus, Sjogren's syndrome Oncologic (Cancer) History: Reports: None Dermatologic History: Reports: None - Infectious Disease History Infectious Disease History: Reports: Chicken Pox, Novel Coronavirus, Other (See Below) Other Infectious Disease History: mrsa - Past Surgical History HEENT Surgical History: Reports: None Cardiovascular Surgical History: Reports: Pacer Other Cardiovascular Surgeries/Procedures: has had pacemaker inserted x3 Respiratory Surgical History: Reports: None GI Surgical History: Reports: Appendectomy, Cholecystectomy, Colonoscopy, EGD Female Surgical History: Reports: Hysterectomy Endocrine Surgical History: Reports: None Neurological Surgical History: Reports: None Musculoskeletal Surgical History: Reports: None Oncologic Surgical History: Reports: Other (See Below) Other Oncologic Surgeries/Procedures: bone marrow biopsy Dermatological Surgical History: Reports: None Social & Family History - Family History Family Medical History: No Pertinent Family History - Tobacco Use Tobacco Use Status *Q: Never Tobacco User Second Hand Smoke Exposure: No - Caffeine Use Caffeine Use: Reports: None - Recreational Drug Use Recreational Drug Use: No - Living Situation & Occupation Living situation: Reports: , with Spouse Occupation: Retired ED ROS GENERAL - Review of Systems Review Of Systems: See Below Constitutional: Reports: Fever, Chills, Malaise, Weakness, Fatigue, Decreased Appetite. Denies: Diaphoresis HEENT: Reports: Throat Pain Respiratory: Reports: Cough, Sputum. Denies: Shortness of Breath, Wheezing, Pleuritic Chest Pain, Hemoptysis Cardiovascular: Denies: Chest Pain, Edema, Orthopnea, Palpitations, Syncope Endocrine: Reports: No Symptoms GI/Abdominal: Reports: Decreased Appetite. Denies: Abdominal Pain, Black Stool, Bloody Stool, Constipation, Diarrhea, Distension, Hematemesis, Hematochezia, Melena, Nausea, Vomiting : Reports: No Symptoms Musculoskeletal: Reports: No Symptoms Skin: Reports: No Symptoms Neurological: Reports: Headache, Weakness (Generalized, non-focal). Denies: Confusion, Dizziness, Seizure, Syncope, Tingling, Tremors, Trouble Speaking, Difficulty Walking, Change in Speech Psychiatric: Reports: No Symptoms Hematologic/Lymphatic: Reports: Anemia. Denies: Easy Bleeding, Easy Bruising, Swollen Glands Immunologic: Reports: No Symptoms ED EXAM, GENERAL - Physical Exam Exam: See Below Exam Limited By: No Limitations General Appearance: Alert, No Apparent Distress, Thin Eye Exam: Bilateral Eye: Normal Inspection, PERRL Ears: Normal External Exam, Normal Canal, Hearing Grossly Normal, Normal TMs. No: Hearing Loss Nose: Normal Inspection, Normal Mucosa, No Blood Throat/Mouth: Normal Inspection, Normal Lips, Normal Teeth, Normal Gums, Normal Oropharynx, Normal Voice, No Airway Compromise Head: Atraumatic, Normocephalic Neck: Normal Inspection, Supple, Non-Tender, Full Range of Motion. No: Lymphadenopathy (L), Lymphadenopathy (R) Respiratory/Chest: No Respiratory Distress, Lungs Clear, Normal Breath Sounds, No Accessory Muscle Use, Chest Non-Tender. No: Crackles, Rhonchi, Wheezing, Stridor Cardiovascular: Normal Peripheral Pulses, Regular Rate, Rhythm, No Edema, No Gallop, No JVD, No Murmur, No Rub GI/Abdominal: Normal Bowel Sounds, Soft, Non-Tender, No Organomegaly, No Distention, No Abnormal Bruit, No Mass Back Exam: Normal Inspection, Full Range of Motion. No: CVA Tenderness (L), CVA Tenderness (R) Extremities: Normal Inspection, Normal Range of Motion, Non-Tender, Normal Capillary Refill, No Pedal Edema Neurological: Alert, Oriented, CN II-XII Intact, Normal Cognition, Normal Gait, Normal Reflexes, No Motor/Sensory Deficits. No: Sensory/Motor Deficit Psychiatric: Normal Affect, Normal Mood Skin Exam: Warm, Dry, Intact, Normal Color, No Rash Lymphatic: No Adenopathy #1 Interpretation EKG Date: 03/13/21 Time: 09:38 Rhythm: Other (Paced rhythm. No further interpretation.) Departure - Departure Time of Disposition: 12:16 Disposition: Home, Self-Care 01 Condition: Good Clinical Impression: Viral syndrome - Discharge Information *PRESCRIPTION DRUG MONITORING PROGRAM REVIEWED*: No *COPY OF PRESCRIPTION DRUG MONITORING REPORT IN PATIENT MARIXA: No Instructions: Viral Illness, Adult Forms: ED Department Discharge Additional Instructions: CT of the Brain showed no new abnormality such as stroke or bleeding. Chest X- ray was negative for pneumonia. Recommend staying hydrated and eating well. Recommend Tylenol as needed for fevers or pain. Follow-up with Primary Care provider as needed. Follow-up in clinic for repeat urine due to microscopic hematuria. Return sooner if you develop new symptoms or symptoms worsen. Sepsis Event Note (ED) - Evaluation Sepsis Screening Result: No Definite Risk <Kenney El - Last Filed: 03/13/21 12:30> Course - Vital Signs Last Recorded V/S: Last Vital Signs Temp 100.2 F 03/13/21 11:52 Pulse 87 03/13/21 08:21 Resp 18 03/13/21 08:21 BP 111/47 L 03/13/21 08:21 Pulse Ox 96 03/13/21 08:21 - Orders/Labs/Meds Orders: Active Orders 24 hr Category Date Time Status Blood Pressure Mgt: Sepsis [RC] [id number] Care 03/13/21 08:55 Active CULTURE BLOOD [BC] Stat Lab 03/13/21 09:15 Received CULTURE BLOOD [BC] Stat Lab 03/13/21 09:33 Received Sodium Chloride 0.9% [Saline Flush] Med 03/13/21 08:54 Active 10 ml FLUSH ASDIRECTED PRN Blood Culture x2 Reflex Set [OM.PC] Stat Ot 03/13/21 08:55 Ordered Saline Lock Insert [OM.PC] Stat Ot 03/13/21 08:55 Ordered Severe Sepsis Onset Time [OM.PC] Stat Ot 03/13/21 08:55 Ordered Medication Orders Sodium Chloride (Sodium Chloride 0.9% 10 Ml Syringe) 10 ml FLUSH ASDIRECTED PRN PRN Reason: Keep Vein Open Last Admin: 03/13/21 10:17 Dose: 10 ml Documented by: ELAYNE Labs: Laboratory Tests 03/13/21 03/13/21 03/13/21 Range/Units 09:15 09:15 09:15 WBC 6.1 (5.0-10.0) 10^3/uL RBC 3.31 L (4.2-5.4) 10^6/uL Hgb 10.1 L D (12.0-16.0) g/dL Hct 30.8 L (37.0-47.0) % MCV 93.1 (80-100) fL MCH 30.5 (27.0-34.0) pg MCHC 32.8 L (33.0-35.0) g/dL Plt Count 85 L (150-450) 10^3/uL Neut % (Auto) 81.6 H (42.2-75.2) % Lymph % (Auto) 11.0 L (20.5-50.1) % Motley % (Auto) 7.4 (2-8) % Eos % (Auto) 0.0 L (1.0-3.0) % Baso % (Auto) 0.0 (0.0-1.0) % Sodium 135 L (136-145) mmol/L Potassium 4.2 (3.5-5.1) mmol/L Chloride 104 (98-107) mmol/L Carbon Dioxide 19 L (21-32) mmol/L Anion Gap 16.2 H (7-13) mEq/L BUN 28 H (7-18) mg/dL Creatinine 1.68 H (0.55-1.02) mg/dL Est Cr Clr Drug Dosing 26.52 mL/min Estimated GFR (MDRD) 30 BUN/Creatinine Ratio 16.7 (No establ ref range) Glucose 96 (70-99) mg/dL Lactic Acid 1.6 (0.4-2.0) mmol/L Calcium 8.4 L (8.5-10.1) mg/dL Total Bilirubin 1.1 H (0.2-1.0) mg/dL AST 50 H (15-37) U/L ALT 34 (14-59) U/L Alkaline Phosphatase 118 H (46-116) U/L C-Reactive Protein 4.5 H (0.0-0.9) mg/dL Total Protein 7.0 (6.4-8.2) g/dL Albumin 2.3 L (3.4-5.0) g/dL Globulin 4.7 Albumin/Globulin Ratio 0.49 Urine Color (YELLOW) Urine Appearance (CLEAR) Urine pH (5.0-9.0) Ur Specific Otis (1.005-1.030) Urine Protein (NEGATIVE) Urine Glucose (UA) (NEGATIVE) Urine Ketones (NEGATIVE) Urine Occult Blood (NEGATIVE) Urine Nitrite (NEGATIVE) Urine Bilirubin (NEGATIVE) Urine Urobilinogen (0.2-1.0) mg/dL Ur Leukocyte Esterase (NEGATIVE) Urine RBC (0-5) /HPF Urine WBC (0-5/HPF) /HPF Ur Epithelial Cells (NOT SEEN) /HPF Amorphous Sediment (NOT SEEN) /HPF Urine Bacteria (0-FEW/HPF) /HPF Influenza Type A RNA (NEGATIVE) Influenza Type B RNA (NEGATIVE) SARS-CoV-2 RNA ([place]ILIANA) (NEGATIVE) 03/13/21 03/13/21 Range/Units 09:27 10:38 WBC (5.0-10.0) 10^3/uL RBC (4.2-5.4) 10^6/uL Hgb (12.0-16.0) g/dL Hct (37.0-47.0) % MCV (80-100) fL MCH (27.0-34.0) pg MCHC (33.0-35.0) g/dL Plt Count (150-450) 10^3/uL Neut % (Auto) (42.2-75.2) % Lymph % (Auto) (20.5-50.1) % Motley % (Auto) (2-8) % Eos % (Auto) (1.0-3.0) % Baso % (Auto) (0.0-1.0) % Sodium (136-145) mmol/L Potassium (3.5-5.1) mmol/L Chloride (98-107) mmol/L Carbon Dioxide (21-32) mmol/L Anion Gap (7-13) mEq/L BUN (7-18) mg/dL Creatinine (0.55-1.02) mg/dL Est Cr Clr Drug Dosing mL/min Estimated GFR (MDRD) BUN/Creatinine Ratio (No establ ref range) Glucose (70-99) mg/dL Lactic Acid (0.4-2.0) mmol/L Calcium (8.5-10.1) mg/dL Total Bilirubin (0.2-1.0) mg/dL AST (15-37) U/L ALT (14-59) U/L Alkaline Phosphatase (46-116) U/L C-Reactive Protein (0.0-0.9) mg/dL Total Protein (6.4-8.2) g/dL Albumin (3.4-5.0) g/dL Globulin Albumin/Globulin Ratio Urine Color Dark yellow (YELLOW) Urine Appearance Slightly cloudy (CLEAR) Urine pH 5.5 (5.0-9.0) Ur Specific Otis 1.020 (1.005-1.030) Urine Protein 30 H (NEGATIVE) Urine Glucose (UA) Negative (NEGATIVE) Urine Ketones Negative (NEGATIVE) Urine Occult Blood Large H (NEGATIVE) Urine Nitrite Negative (NEGATIVE) Urine Bilirubin Negative (NEGATIVE) Urine Urobilinogen 0.2 (0.2-1.0) mg/dL Ur Leukocyte Esterase Negative (NEGATIVE) Urine RBC 50-75 H (0-5) /HPF Urine WBC 0-5 (0-5/HPF) /HPF Ur Epithelial Cells Few (NOT SEEN) /HPF Amorphous Sediment Few (NOT SEEN) /HPF Urine Bacteria Few (0-FEW/HPF) /HPF Influenza Type A RNA Negative (NEGATIVE) Influenza Type B RNA Negative (NEGATIVE) SARS-CoV-2 RNA (LILIANA) Positive H (NEGATIVE) Meds: Medications Generic Name Dose Route Start Last Admin Trade Name Freq PRN Reason Stop Dose Admin Sodium Chloride 10 ml 03/13/21 08:54 03/13/21 10:17 Sodium Chloride 0.9% 10 Ml Syringe FLUSH 10 ml ASDIRECTED PRN Administration Keep Vein Open Discontinued Medications Generic Name Dose Route Start Last Admin Trade Name David PRN Reason Stop Dose Admin Acetaminophen 1,000 mg 03/13/21 11:43 03/13/21 11:52 Acetaminophen 500 Mg Tab PO 03/13/21 11:44 1,000 mg ONETIME ONE Administration Cefepime HCl 2 gm/ Sodium 50 mls @ 100 mls/hr 03/13/21 08:54 03/13/21 09:42 Chloride IV 03/13/21 09:23 100 mls/hr STAT ONE Administration Vancomycin HCl 1,147.5 gm/ 250 mls @ 167 mls/hr 03/13/21 08:54 03/13/21 09:42 Dextrose/Water IV 03/13/21 10:23 Not Given ONETIME ONE Sodium Chloride 1,000 mls @ 999 mls/hr 03/13/21 08:54 03/13/21 09:38 Normal Saline IV 03/13/21 09:54 999 mls/hr BOLUS ONE Administration Protocol Vancomycin HCl 1,500 mg/ 500 mls @ 333.333 mls/hr 03/13/21 09:33 03/13/21 10:19 Sodium Chloride IV 03/13/21 11:02 333.333 mls/hr ONETIME ONE Administration - Radiology Interpretation Free Text/Narrative:: [facility] Final Radiology Report Call: [phone] assistance Online chat: [email or web address] Name: LUIS MANUEL MANDEL Age: 70Years F Date: 03/13/2021 SSN: -- : [id number] Study: CT HEAD WO CONT Requesting Physician: Michell Rubin Images: 169 Addl Studies: Provided Clinical History: Fall, on ASA. Hx of CVA Contrast: Without Contrast Medium: Contrast Amount: Contrast Method: Page 1 of 2 PROCEDURE INFORMATION: Exam: CT Head Without Contrast Exam date and time: 03/13/2021 9:21 AM Age: 70 years old Clinical indication: Other: Fall, on asa. HX of CVA TECHNIQUE: Imaging protocol: Computed tomography of the head without contrast. Radiation optimization: All CT scans at this facility use at least one of these dose optimization techniques: automated exposure control; mA and/or kV adjustment per patient size (includes targeted exams where dose is matched to clinical indication); or iterative reconstruction. COMPARISON: CT Head wo Cont 04/07/2018 7:57 AM FINDINGS: Limitations: None. Brain: No mass, intracranial hemorrhage or brain edema. Chronic unchanged subtle left occipital brain volume loss indicating likely very small old infarct.. Brain volume is otherwise age-appropriate. Normal cerebellum and brainstem. Chronic symmetric mild bilateral basal ganglia calcification. Cerebral ventricles: Normal. Paranasal sinuses: Normal. Mastoid air cells: Normal. Vasculature: Vertebral and carotid atherosclerosis. Bones/joints: Normal. Soft tissues: Unremarkable. IMPRESSION: 1. No acute intracranial abnormality or significant interval change. LUIS MANUEL MANDEL | Final Radiology Report CONFIDENTIALITY STATEMENT This report is intended only for use by the referring physician, and only in accordance with law. If you received this in error, call [phone]. Page 2 of 2 2. Incidentally noted very small old left occipital infarct, atherosclerosis and benign appearing bilateral basal ganglia calcification, not concerning. Thank you for allowing us to participate in the care of your patient. Dictated and Authenticated by: Brigido Rodriguez MD 03/13/2021 9:47 AM Central Time ([place] & [place]) [facility] Final Radiology Report Call: [phone] assistance Online chat: [email or web address] Name: LUIS MANUEL MANDEL Age: 70Years F Date: 03/13/2021 SSN: -- : [id number] Study: CR CHEST 2V Requesting Physician: Michell Rubin Images: 2 Addl Studies: Provided Clinical History: Cough Contrast: Contrast Medium: Contrast Amount: Contrast Method: Page 1 of 2 PROCEDURE INFORMATION: Exam: XR Chest Exam date and time: 03/13/2021 9:27 AM Age: 70 years old Clinical indication: Cough TECHNIQUE: Imaging protocol: XR of the chest. Views: 2 views. COMPARISON: CR Chest 1V Frontal 07/06/2020 4:01 AM FINDINGS: Tubes, catheters and devices: Unchanged chronic cardiac event recorder device. Lungs: The lungs are normally expanded and clear. Mild proximal lower lobe airway enlargement and slight peribronchial thickening. Pleural spaces: Normal. Heart/Mediastinum: Chronic mildly enlarged heart. Vasculature: Atherosclerosis. Normal dimensions of the vessels and vascular pedicle. Bones/joints: Intact and normally aligned. No suspicious lesion. IMPRESSION: 1. No focal pneumonia or suspicious acute disease. 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 2. Incidentally noted mild cardiomegaly and atherosclerosis. Thank you for allowing us to participate in the care of your patient. LUIS MANUEL MANDEL | Final Radiology Report CONFIDENTIALITY STATEMENT This report is intended only for use by the referring physician, and only in accordance with law. If you received this in error, call [phone]. Page 2 of 2 Dictated and Authenticated by: Brigido Rodriguez MD 03/13/2021 9:49 AM Central Time ([place] & [place]) - Re-Assessments/Exams Free Text/Narrative Re-Assessment/Exam: 03/13/21 I saw and evaluated the patient. Discussed with resident and agree with residents findings and plan as documented in the residents not Sepsis Event Note (ED) - Focused Exam Vital Signs: Vital Signs Temp Temp Pulse Resp BP Pulse Ox 03/13/21 11:52 100.2 F 03/13/21 08:21 100.6 F 87 18 111/47 L 96"
[2021-03-13 09:40] LABS: ANION GAP 16.2 mEq/L (7-13)
--- NOTE | 2021-03-13 09:47 | CT ---
PROCEDURE INFORMATION: Exam: CT Head Without Contrast Exam date and time: 03/13/2021 9:21 AM Age: 70 years old Clinical indication: Other: Fall, on asa. HX of CVA TECHNIQUE: Imaging protocol: Computed tomography of the head without contrast. Radiation optimization: All CT scans at this facility use at least one of these dose optimization techniques: automated exposure control; mA and/or kV adjustment per patient size (includes targeted exams where dose is matched to clinical indication); or iterative reconstruction. COMPARISON: CT Head wo Cont 04/07/2018 7:57 AM FINDINGS: Limitations: None. Brain: No mass, intracranial hemorrhage or brain edema. Chronic unchanged subtle left occipital brain volume loss indicating likely very small old infarct.. Brain volume is otherwise age-appropriate. Normal cerebellum and brainstem. Chronic symmetric mild bilateral basal ganglia calcification. Cerebral ventricles: Normal. Paranasal sinuses: Normal. Mastoid air cells: Normal. Vasculature: Vertebral and carotid atherosclerosis. Bones/joints: Normal. Soft tissues: Unremarkable. IMPRESSION: 1. No acute intracranial abnormality or significant interval change. 2. Incidentally noted very small old left occipital infarct, atherosclerosis and benign appearing bilateral basal ganglia calcification, not concerning.
--- NOTE | 2021-03-13 09:50 | CR ---
PROCEDURE INFORMATION: Exam: XR Chest Exam date and time: 03/13/2021 9:27 AM Age: 70 years old Clinical indication: Cough TECHNIQUE: Imaging protocol: XR of the chest. Views: 2 views. COMPARISON: CR Chest 1V Frontal 07/06/2020 4:01 AM FINDINGS: Tubes, catheters and devices: Unchanged chronic cardiac event recorder device. Lungs: The lungs are normally expanded and clear. Mild proximal lower lobe airway enlargement and slight peribronchial thickening. Pleural spaces: Normal. Heart/Mediastinum: Chronic mildly enlarged heart. Vasculature: Atherosclerosis. Normal dimensions of the vessels and vascular pedicle. Bones/joints: Intact and normally aligned. No suspicious lesion. IMPRESSION: 1. No focal pneumonia or suspicious acute disease. 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 2. Incidentally noted mild cardiomegaly and atherosclerosis.
[2021-03-13 10:32] LABS: CORONAVIRUS COVID-19 NAA POSITIVE (NEGATIVE)
[2021-03-13] MEDS ORDERED: Acetaminophen 500 MG Tab PO ONE (11:43)
== END 2021-03-13 12:20 | disposition home or self-care (01) ==
LOC: DL.ED 09:10
DX: B34.9 Viral infection, unspecified (principal); E78.00 Pure hypercholesterolemia, unspecified; I11.9 Hypertensive heart disease without heart failure; I12.9 Hypertensive chronic kidney disease with stage 1 through stage 4 chronic kidney disease, or unspecified chronic kidney disease; N18.30 Chronic kidney disease, stage 3 unspecified; Z79.82 Long term (current) use of aspirin; Z79.899 Other long term (current) drug therapy; Z95.0 Presence of cardiac pacemaker; Z88.0 Allergy status to penicillin; Z88.1 Allergy status to other antibiotic agents
CPT/HCPCS: 0240U; 36415; 70450; 71046; 80053; 81001; 83605; 85025; 86140; 87040; 93005; 96365; 96366; 96367; 99285; A9270; J0692; J3370; J7030; J7040

== ENCOUNTER 2022-11-21 18:02 | Emergency (ER) | payer MEDICARE, OTHER ==
[~2022-11-21 18:02] MED LIST changes: -Cefepime 2 GM in Sodium Chloride 0.9% 50 ML IV ONE; -DEXTROSE 5% IV ONE; -Sodium Chloride 0.9% 1,000 ML IV ONE; -VANCOMYCIN IV ONE; -WATER IV ONE
[2022-11-21] MEDS ORDERED: Acetaminophen 500 MG Tab PO ONE (18:03)
[2022-11-21 18:32] LABS: HEMATOCRIT 31.2 % (37.0-47.0); HEMOGLOBIN 10.6 g/dL (12.0-16.0); LYMPHOCYTES PERCENT AUTO 9.6 % (20.5-50.1); MEAN CORPUSCULAR HEMOGLOBIN 31.5 pg (27.0-34.0); MEAN CORPUSCULAR VOLUME 92.9 fL (80-100); MONOCYTES PERCENT AUTO 7.4 % (2-8); PLATELET COUNT,PLT 86 10^3/uL (150-450); RED BLOOD CELL COUNT 3.36 10^6/uL (4.2-5.4); WHITE BLOOD CELL COUNT,WBC 8.6 10^3/uL (5.0-10.0)
[2022-11-21 18:45] LABS: APPEARANCE,URINE CLEAR (CLEAR); BILIRUBIN,URINE NEGATIVE (NEGATIVE); COLOR,URINE YELLOW (YELLOW); GLUCOSE,URINE NEGATIVE (NEGATIVE); KETONES,URINE NEGATIVE (NEGATIVE); LEUKOCYTE ESTERASE,URINE NEGATIVE (NEGATIVE); NITRITE,URINE NEGATIVE (NEGATIVE); OCCULT BLOOD,URINE MODERATE (NEGATIVE); PH,URINE 5.5 (5.0-9.0); PROTEIN,URINE 30 (NEGATIVE); UROBILINOGEN,URINE 0.2 mg/dL (0.2-1.0)
[2022-11-21 18:59] LABS: ALBUMIN 2.2 g/dL (3.4-5.0); ANION GAP 16.3 mEq/L (7-13); BILIRUBIN TOTAL 1.3 mg/dL (0.2-1.0); BUN/CREATININE RATIO 19.2 (No establ ref range); CREATININE 1.46 mg/dL (0.55-1.02); EST CRCL DRUG DOSING (CG) 28.39 mL/min; POTASSIUM,K 4.3 mmol/L (3.5-5.1); PROTEIN TOTAL,TP 6.9 g/dL (6.4-8.2)
[2022-11-21] MEDS ORDERED: Ibuprofen 400 MG Tab PO ONE (18:59)
[2022-11-21 19:20] LABS: A/G RATIO 0.47; C-REACTIVE PROTEIN 17.2 mg/dL (0.0-0.9)
[2022-11-21 19:22] LABS: BACTERIA,URINE FEW /HPF (0-FEW/HPF); EPITHELIAL CELLS,URINE FEW /HPF (NOT SEEN); WBC,URINE 0-5 /HPF (0-5/HPF)
[2022-11-21] MEDS ORDERED: Ciprofloxacin 500 MG Tab PO ONE (20:38)
== END 2022-11-21 21:06 | disposition home or self-care (01) ==
LOC: EEVIPCON 18:02 → DL.ED 18:02
DX: A41.9 Sepsis, unspecified organism (principal); J18.9 Pneumonia, unspecified organism; J84.9 Interstitial pulmonary disease, unspecified; I13.0 Hypertensive heart and chronic kidney disease with heart failure and stage 1 through stage 4 chronic kidney disease, or unspecified chronic kidney disease; N18.30 Chronic kidney disease, stage 3 unspecified; I50.9 Heart failure, unspecified; M06.9 Rheumatoid arthritis, unspecified; Z86.16 Personal history of COVID-19; Z88.0 Allergy status to penicillin; Z88.2 Allergy status to sulfonamides; Z79.899 Other long term (current) drug therapy; Z79.82 Long term (current) use of aspirin; Z20.822 Contact with and (suspected) exposure to COVID-19
CPT/HCPCS: 36415; 71045; 80053; 81001; 83605; 83880; 84145; 85025; 86140; 87040; 99285; A9270; U0002; J3490

== ENCOUNTER 2024-01-02 22:17 | Emergency (ER) | payer MEDICARE, OTHER ==
[2024-01-02 22:45] LABS: EOSINOPHILS PERCENT AUTO 3.2 % (1.0-3.0); HEMATOCRIT 36.3 % (37.0-47.0); HEMOGLOBIN 11.9 g/dL (12.0-16.0); LYMPHOCYTES PERCENT AUTO 38.7 % (20.5-50.1); MEAN CORPUSCULAR HEMOGLOBIN 31.8 pg (27.0-34.0); MEAN CORPUSCULAR HGB CONC 32.8 g/dL (33.0-35.0); MEAN CORPUSCULAR VOLUME 97.1 fL (80-100); MONOCYTES PERCENT AUTO 10.3 % (2-8); NEUTROPHILS PERCENT AUTO 47.8 % (42.2-75.2); PLATELET COUNT,PLT 83 10^3/uL (150-450); RED BLOOD CELL COUNT 3.74 10^6/uL (4.2-5.4); WHITE BLOOD CELL COUNT,WBC 2.5 10^3/uL (5.0-10.0)
[2024-01-02 23:00] LABS: LACTIC ACID 0.9 mmol/L (0.4-2.0)
[2024-01-02 23:06] LABS: PROTHROMBIN TIME 10.7 SEC (9.0-12.0); PTT,PARTIAL THROMBOPLSTIN TIME 27.7 SEC (22.0-34.0)
[2024-01-02 23:07] LABS: ALANINE AMINOTRANSFERASE,ALT 50 U/L (14-59); ALBUMIN 2.7 g/dL (3.4-5.0); ALKALINE PHOSPHATASE 209 U/L (46-116); ANION GAP 11.8 mEq/L (7-13); ASPARTATE AMNIOTRANSFERASE,AST 73 U/L (15-37); BILIRUBIN TOTAL 0.4 mg/dL (0.2-1.0); BLOOD UREA NITROGEN,BUN 32 mg/dL (7-18); BUN/CREATININE RATIO 20.3 (No establ ref range); CALCIUM 9.4 mg/dL (8.5-10.1); CARBON DIOXIDE,CO2 22 mmol/L (21-32); CHLORIDE,CL 110 mmol/L (98-107); CREATININE 1.58 mg/dL (0.55-1.02); GLUCOSE RANDOM 98 mg/dL (70-99); MAGNESIUM 1.8 mg/dL (1.8-2.4); PHOSPHORUS 3.5 mg/dL (2.6-4.7); POTASSIUM,K 5.8 mmol/L (3.5-5.1); PROTEIN TOTAL,TP 7.9 g/dL (6.4-8.2); SODIUM,NA 138 mmol/L (136-145)
[2024-01-02 23:15] LABS: A/G RATIO 0.52; ESTIMATED GFR 34 mL/min (>=60)
[2024-01-02] MEDS: Sodium Zirconium Cyclosilicate 5 GM Packet PO ONE (23:32)
[2024-01-02] MEDS: Sodium Chloride 0.9% 10 ML Syringe FLUSH PRN (23:33)
== END 2024-01-02 23:40 | disposition home or self-care (01) ==
LOC: DL.ED 22:17
DX: E87.5 Hyperkalemia (principal); I10 Essential (primary) hypertension; E78.00 Pure hypercholesterolemia, unspecified; Z88.0 Allergy status to penicillin; Z88.2 Allergy status to sulfonamides; Z88.8 Allergy status to other drugs, medicaments and biological substances; Z79.82 Long term (current) use of aspirin; Z79.899 Other long term (current) drug therapy; Z86.16 Personal history of COVID-19; Z90.49 Acquired absence of other specified parts of digestive tract; Z90.710 Acquired absence of both cervix and uterus
CPT/HCPCS: 36415; 80053; 83605; 83735; 84100; 84484; 85025; 85610; 85730; 93005; 99285; J3490

== ENCOUNTER 2024-05-13 03:40 | Emergency (ER) | payer MEDICARE, OTHER ==
[2024-05-13] MEDS: fentaNYL 100 MCG/2 ML SDV IVPUSH ONE (04:33)
[2024-05-13] MEDS: Midazolam 1 MG/ML 2 ML SDV IVPUSH ONE (04:34)
[2024-05-13] MEDS: Sodium Chloride 0.9% 10 ML Syringe FLUSH PRN (05:02)
[2024-05-13] MEDS: Ketorolac 30 MG/ML SDV IVPUSH ONE (05:50)
== END 2024-05-13 06:07 | disposition home or self-care (01) ==
LOC: DL.ED 03:40
DX: S43.015A Anterior dislocation of left humerus, initial encounter (principal); M25.522 Pain in left elbow; I12.9 Hypertensive chronic kidney disease with stage 1 through stage 4 chronic kidney disease, or unspecified chronic kidney disease; N18.9 Chronic kidney disease, unspecified; Z86.16 Personal history of COVID-19; Z90.49 Acquired absence of other specified parts of digestive tract; Z90.710 Acquired absence of both cervix and uterus; Z88.0 Allergy status to penicillin; Z88.8 Allergy status to other drugs, medicaments and biological substances; Z79.82 Long term (current) use of aspirin; Z79.899 Other long term (current) drug therapy; W01.0XXA Fall on same level from slipping, tripping and stumbling without subsequent striking against object, initial encounter; Y92.009 Unspecified place in unspecified non-institutional (private) residence as the place of occurrence of the external cause
CPT/HCPCS: 23650; 73020; 73030; 73070; 96374; 99283; J1885; J2250; J3010